=== PATIENT | male | born 1965 | race Caucasian/White ===

== ENCOUNTER 2020-05-09 08:02 | Inpatient (IN) | payer MEDICAID ==
[~2020-05-09] VITALS: Ht 177.8 cm; Wt 123.0 kg
[2020-05-09] MEDS ORDERED: furosemide 10 MG/1 ML 10ml inj IV ONE (08:55)
[2020-05-09] MEDS ORDERED: nitroGLYCERIN-Tridil 50MG/D5W 250 ML IV SCH (08:55)
[2020-05-09 09:00] LABS: BASOPHILS % (AUTO) 0.4 % (0-1); EOSINOPHILS % (AUTO) 0.1 % (0-6); HEMOGLOBIN 15.1 g/dl (14.0-17.9); LYMPHOCYTES # (AUTO) 1.4 X10'3 (1.1-4.8); LYMPHOCYTES % (AUTO) 15.1 % (21-51); MEAN CORPUSCULAR HEMOGLOBIN 31.4 PG (27.0-31.0); MEAN CORPUSCULAR HGB CONC 32.8 g/dL (33.0-36.5); MEAN CORPUSCULAR VOLUME 95.8 FL (78-98); MEAN PLATELET VOLUME 8.4 FL (7.4-10.4); MONOCYTES # (AUTO) 0.7 X10'3 (0-0.9); NEUTROPHILS # (AUTO) 7.1 X10'3 (1.8-7.7); NEUTROPHILS % (AUTO) 76.4 % (42-75); PLATELET COUNT 310 X10'3 (140-440); RED BLOOD COUNT 4.81 X10'6 (4.70-6.10); RED CELL DISTRIBUTION WIDTH 14.7 % (11.5-14.5); WHITE BLOOD COUNT 9.3 X10'3 (4.5-11.0)
[2020-05-09 09:03] LABS: D-DIMER 3.06 MG/L FEU (0-0.50); PARTIAL THROMBOPLASTIN TIME 28 SECONDS (22-32)
[2020-05-09 09:04] LABS: ALANINE AMINOTRANSFERASE 633 U/L (12-78); ALBUMIN 3.2 G/DL (3.4-5.0); ALBUMIN/GLOBULIN RATIO 0.9 (1.1-1.5); ALKALINE PHOSPHATASE 113 IU/L (46-116); ANION GAP 5 (8-16); ASPARTATE AMINO TRANSFERASE 734 U/L (10-37); BILIRUBIN,TOTAL 0.9 MG/DL (0.1-1.0); BLOOD UREA NITROGEN 51 MG/DL (7-18); CALCIUM 8.2 MG/DL (8.5-10.1); CHLORIDE 102 MMOL/L (99-107); CREATININE 2.43 MG/DL (0.60-1.10); GLUCOSE 91 MG/DL (70-104); POTASSIUM 4.7 MMOL/L (3.5-5.1); SODIUM 142 MMOL/L (135-145); TOTAL CARBON DIOXIDE 34.9 MMOL/L (24-32); TOTAL PROTEIN 6.6 G/DL (6.4-8.2); eGFR 28 ML/MIN
--- NOTE | 2020-05-09 09:37 | NUR ---
PATIENT ON NITRO 5MCG/MIN,ON 4L NC SATING 99%.CALL LIGHT WITHIN REACH.
[2020-05-09 09:45] LABS: ABG BASE EXCESS 4.3 mmol/L (-2.0-2.0); ABG HCO3 35.6 mmol/L (22.0-26.0); ABG OXYGEN SATURATION 98.1 % (94-97); ABG PCO2 (T) 86.4 mmHg (35.0-48.0); ABG PO2 (T) 139.3 mmHg (75.0-100.0); ALLEN'S TEST POSITIVE; FLOW 4 L/min; FMetHb 0.1 % (0.0-1.5); PATIENT TEMPERATURE 36.7; TOTAL HEMOGLOBIN 15.9 G/dl (14.0-18.0)
[2020-05-09 12:20] LABS: ABG BASE EXCESS 0.8 mmol/L (-2.0-2.0); ABG HCO3 30.1 mmol/L (22.0-26.0); ABG OXYGEN SATURATION 93.7 % (94-97); ABG PCO2 (T) 68.7 mmHg (35.0-48.0); ABG PO2 (T) 81.6 mmHg (75.0-100.0); ALLEN'S TEST POSITIVE; FCOHb 1.1 % (0.0-3.9); FMetHb 0.2 % (0.0-1.5); FO2Hb 92.5 % (94-97); RESPIRATORY RATE 18 b/min; TOTAL HEMOGLOBIN 15.5 G/dl (14.0-18.0)
--- NOTE | 2020-05-09 12:24 | NUR ---
SPOKE WITH SAMANTHA [phone] WHO STATES HE WAS JUST AT [facility] [place] BECAUSE THEY WERENT TREATING HIM WITH RESPECT. EXPLAINED CPAP ON PT. SHE STATES TO DO EVERYTHING WE CAN TO SAVE HIM HE IS THE LOVE OF HER LIFE.
[2020-05-09] MEDS ORDERED: heparin 10,000 units/1 ML INJ IV ONE ×2 (13:25→13:30)
[2020-05-09] MEDS ORDERED: CefTRIAXone/D5W-Rocephin 1gm 50 ML IV ONE (13:30)
[2020-05-09] MEDS ORDERED: azithromycin/NS 500mg/250ml 250 ML IV ONE (13:30)
[2020-05-09 13:52] LABS: BASOPHILS % (AUTO) 0.3 % (0-1); EOSINOPHILS % (AUTO) 0 % (0-6); HEMOGLOBIN 14.9 g/dl (14.0-17.9); LYMPHOCYTES # (AUTO) 1.5 X10'3 (1.1-4.8); LYMPHOCYTES % (AUTO) 14.7 % (21-51); MEAN CORPUSCULAR HEMOGLOBIN 31.6 PG (27.0-31.0); MEAN CORPUSCULAR HGB CONC 33.2 g/dL (33.0-36.5); MEAN CORPUSCULAR VOLUME 95.4 FL (78-98); MEAN PLATELET VOLUME 8.1 FL (7.4-10.4); MONOCYTES # (AUTO) 0.8 X10'3 (0-0.9); MONOCYTES % (AUTO) 7.8 % (2-12); NEUTROPHILS % (AUTO) 77.2 % (42-75); PLATELET COUNT 348 X10'3 (140-440); RED BLOOD COUNT 4.72 X10'6 (4.70-6.10); RED CELL DISTRIBUTION WIDTH 14.5 % (11.5-14.5); WHITE BLOOD COUNT 10.4 X10'3 (4.5-11.0)
[2020-05-09 14:02] LABS: PARTIAL THROMBOPLASTIN TIME 27 SECONDS (22-32)
[2020-05-09] MEDS: heparin 25,000 UNIT/250ml bag 250 ML IV SCH ×2 (14:05→22:44)
--- NOTE | 2020-05-09 14:09 | NUR ---
CONTINUE N BIPAP 23 RATE,NITRO 5MCG/MIN AND HEPARIN DRIP 1000 UNITS/HOUR.
--- NOTE | 2020-05-09 14:10 | NUR ---
URINE COLLECTED AND SENT TO THE LAB.
[2020-05-09] MEDS ORDERED: LORA10TA65 PO (14:31)
[2020-05-09 14:43] LABS: URINE AMPHETAMINE SCREEN POSITIVE (Neg); URINE BARBITUATE SCREEN NEGATIVE (Neg); URINE BENZODIAZEPINES SCREEN NEGATIVE (Neg); URINE CANNABINOID SCREEN NEGATIVE (Neg); URINE COCAINE SCREEN NEGATIVE (Neg); URINE METHADONE SCREEN NEGATIVE (Neg); URINE OPIATE SCREEN POSITIVE (Neg); URINE PHENCYCLIDINE SCREEN NEGATIVE (Neg)
[2020-05-09] MEDS ORDERED: normal saline 1000ml 1,000 ML IV SCH (15:14)
[2020-05-09] MEDS ORDERED: magnesium 4gm in 100ml NS 100 ML IV PRN (15:15)
[2020-05-09] MEDS ORDERED: acetaminophen 650mg rectal suppository RC PRN (15:15)
[2020-05-09] MEDS ORDERED: HYDROcodone/acetaminophen 5mg/325mg tablet PO PRN (15:15)
[2020-05-09] MEDS ORDERED: metoclopramide 5 mg/ml inj IV PRN (15:15)
[2020-05-09] MEDS ORDERED: potassium CL 10mEq/100ml bag 100 ML IV PRN ×2 (15:15)
[2020-05-09] MEDS ORDERED: morphine 2 MG/ML inj. syringe IV PRN ×2 (15:15)
[2020-05-09] MEDS ORDERED: bisacodyl 10mg suppository rectal RC PRN (15:15)
[2020-05-09] MEDS ORDERED: magnesium 2GM in 50ml NS 50 ML IV PRN (15:15)
[2020-05-09] MEDS ORDERED: furosemide 10 MG/1 ML 10ml inj IV SCH (15:15)
[2020-05-09] MEDS ORDERED: magnesium Cl slow-release 64mg tablet PO PRN (15:15)
[2020-05-09] MEDS ORDERED: magnesium hydroxide 30ml (MOM) UD suspension PO PRN (15:15)
[2020-05-09] MEDS ORDERED: mag hydrox/Alum hydrox/simeth 30ml oral suspension PO PRN (15:15)
[2020-05-09] MEDS ORDERED: HYDROcodone/acetaminophen 10/325mg tab PO PRN (15:15)
[2020-05-09] MEDS ORDERED: potassium Cl 20 mEq SR tablet PO PRN ×2 (15:15)
[2020-05-09] MEDS: methylPREDNISolone sod succ 125mg/2ml vial IV SCH ×2 (15:15→20:14)
[2020-05-09] MEDS ORDERED: acetaminophen 325mg tablet PO PRN ×2 (15:15)
[2020-05-09] MEDS ORDERED: diphenhydrAMINE 25mg capsule PO PRN (15:15)
[2020-05-09] MEDS ORDERED: ondansetron/PF 4mg/2ml inj IV PRN (15:15)
--- NOTE | 2020-05-09 15:17 | NUR ---
PT SAT UP, TOOK OF HIS CPAP , AND STATED HE WAS LEAVING. DR. GRANT CAME IN AND SPOKE WITH PT. HE WILL NOW STAY. CPAP REPLACED AND PT RESTING NOW IN POC. ABX RUNNING. COVID -.
--- NOTE | 2020-05-09 16:11 | NUR ---
ECHO AT BEDSIDE, PT VERY AGITATED RIPPING OFF HIS CPAP AND SAYING HES LEAVING. TALKED TO PT AND HE IS WILLING TO STAY.
--- NOTE | 2020-05-09 16:18 | NUR ---
[facility] CALLED, WILL DO LUNG SCAN TOMORROW
[2020-05-09 16:20] LABS: HEMOGLOBIN A1C 6.4 % (4.5-6.2)
[2020-05-09 17:37] LABS: HIV ANTIBODY 1&2 RAPID NON-REACTIVE (Neg)
--- NOTE | 2020-05-09 17:53 | NUR ---
Report received from Amber AGUILA at 1640. Patient to go to CT scan to have a CT of his head. Patient brought up by ED RN at 1745. patient was satting at 99% on 15L non rebreather. Patient's vital signs read 97.7, 128/79, 98% on 2L NC (placed by RT), 21 respirations, 80 HR. Patient at this time is alert and conversive, A/OX4, with Dr. Henderson present at bedside. Addendum: 05/09/20 at 1805 by Mercedes Baron RN Patient placed on bedside monitor 64. Nitro gtt running at 5mcg/min; Heparin gtt running at 1000 U/HR.
[2020-05-09 18:00] VITALS: BP 134/97
--- NOTE | 2020-05-09 18:15 | NUR ---
Problems reprioritized. Patient report given, questions answered & plan of care reviewed with AYLA Walters.
--- NOTE | 2020-05-09 18:20 | NUR ---
Patient in room PCU 3014. I have received report from Armando, and had the opportunity to ask questions and assume patient care.
[2020-05-09] MEDS: ipratropium/albuterol 3ml nebule NEB SCH ×2 (19:21→23:13)
[2020-05-09] MEDS: K and/or MAG REPLACEMENT MC SCH (20:00)
[2020-05-09] MEDS: furosemide inj 100 MG in normal saline 100ml IV soln 90 ML IV SCH (20:14)
[2020-05-09 22:00] VITALS: BP 132/97
[2020-05-09] MEDS: temazepam 15mg capsule PO PRN (22:03)
[2020-05-09] MEDS: heparin 10,000 units/1 ML INJ IV PRN (22:37)
[2020-05-10] MEDS: methylPREDNISolone sod succ 125mg/2ml vial IV SCH ×2 (01:28→08:31)
--- NOTE | 2020-05-10 01:39 | NUR ---
Called Dr. Velasco regarding patient having 11 beat runs of V tach. He acknowledge it and ordered for K and Mag replacement if needed. K level is 4.7. Ordered to add magnesium with the morning labs. And replace if needed. No other orders were given at this time.
[2020-05-10 02:00] VITALS: BP 129/100
--- NOTE | 2020-05-10 02:35 | NUR ---
The patient is noncompliant, took the BiPAP off. At 3 L O2 NC, O@ sat at low 90's.
[2020-05-10] MEDS: ipratropium/albuterol 3ml nebule NEB SCH ×6 (03:18→23:15)
[2020-05-10 03:31] LABS: ALANINE AMINOTRANSFERASE 675 U/L (12-78); ALBUMIN 3.2 G/DL (3.4-5.0); ALBUMIN/GLOBULIN RATIO 0.9 (1.1-1.5); ALKALINE PHOSPHATASE 117 IU/L (46-116); ANION GAP 4 (8-16); ASPARTATE AMINO TRANSFERASE 501 U/L (10-37); BILIRUBIN,TOTAL 0.6 MG/DL (0.1-1.0); BLOOD UREA NITROGEN 55 MG/DL (7-18); BUN/CREATININE RATIO 26.3 (5.4-32.0); CALCIUM 7.9 MG/DL (8.5-10.1); CHLORIDE 102 MMOL/L (99-107); CREATININE 2.09 MG/DL (0.60-1.10); GLUCOSE 164 MG/DL (70-104); SODIUM 144 MMOL/L (135-145); TOTAL CARBON DIOXIDE 38.4 MMOL/L (24-32); TOTAL PROTEIN 6.9 G/DL (6.4-8.2); eGFR 33 ML/MIN
[2020-05-10 03:32] LABS: PARTIAL THROMBOPLASTIN TIME 87 SECONDS (22-32)
[2020-05-10 03:37] LABS: CHOL/HDL RATIO 2.5 (0.00-4.99); CHOLESTEROL 137 MG/DL (0-200); HDL CHOLESTEROL 54 MG/DL (35-60); LDL CHOLESTEROL 68 MG/DL (50-100); MAGNESIUM 2.1 MG/DL (1.5-2.4); PHOSPHORUS 5.1 MG/DL (2.3-4.5); TRIGLYCERIDES 48 MG/DL (20-135)
[2020-05-10 03:52] LABS: BASOPHILS % (AUTO) 0.1 % (0-1); EOSINOPHILS % (AUTO) 0 % (0-6); HEMATOCRIT 48.1 % (42.0-52.0); HEMOGLOBIN 15.8 g/dl (14.0-17.9); LYMPHOCYTES # (AUTO) 0.6 X10'3 (1.1-4.8); LYMPHOCYTES % (AUTO) 7.8 % (21-51); MEAN CORPUSCULAR HEMOGLOBIN 31.4 PG (27.0-31.0); MEAN CORPUSCULAR HGB CONC 32.7 g/dL (33.0-36.5); MEAN CORPUSCULAR VOLUME 95.9 FL (78-98); MEAN PLATELET VOLUME 8.5 FL (7.4-10.4); MONOCYTES # (AUTO) 0.2 X10'3 (0-0.9); MONOCYTES % (AUTO) 2.2 % (2-12); NEUTROPHILS # (AUTO) 6.8 X10'3 (1.8-7.7); NEUTROPHILS % (AUTO) 89.9 % (42-75); PLATELET COUNT 347 X10'3 (140-440); RED BLOOD COUNT 5.01 X10'6 (4.70-6.10); RED CELL DISTRIBUTION WIDTH 14.6 % (11.5-14.5); WHITE BLOOD COUNT 7.5 X10'3 (4.5-11.0)
[2020-05-10] MEDS: heparin 25,000 UNIT/250ml bag 250 ML IV SCH ×2 (05:31→08:41)
[2020-05-10] MEDS: furosemide inj 100 MG in normal saline 100ml IV soln 90 ML IV SCH (05:44)
--- NOTE | 2020-05-10 06:10 | NUR ---
Patient in room PCU 3014. I have received report from Romeo AGUILA and had the opportunity to ask questions and assume patient care. Patient was resting in bed, 3L NC, offers no compliants, will continue to monitor, bedside report complete.
--- NOTE | 2020-05-10 06:28 | NUR ---
Problems reprioritized. Patient report given Bruce, questions answered & plan of care reviewed with .
[2020-05-10 07:00] VITALS: BP 145/96
[2020-05-10] MEDS: K and/or MAG REPLACEMENT MC SCH ×2 (08:00→20:00)
--- NOTE | 2020-05-10 08:16 | NUR ---
PAGER ID: [phone] MESSAGE: JarochoSaturnino. FYI: Patient has had a 10 beat run of v tach this am, pt was asymptomatic. Thanks, Sheila [phone]
[2020-05-10] MEDS: levoTHYROXINE 25mcg tablet PO SCH (08:27)
[2020-05-10] MEDS: CefTRIAXone/D5W-Rocephin 1gm 50 ML IV SCH (08:28)
[2020-05-10] MEDS: azithromycin 250mg tablet PO SCH (08:32)
[2020-05-10] MEDS: heparin 10,000 units/1 ML INJ IV PRN (08:39)
--- NOTE | 2020-05-10 09:10 | NUR ---
Patient going down to [place] for a VQ scan with RN.
--- NOTE | 2020-05-10 10:18 | NUR ---
Patient back from VQ scan, transfered back to bed by pivot, all gtts running, offers no complaints, will continue to monitor.
[2020-05-10 11:00] VITALS: BP 144/88
[2020-05-10 11:49] LABS: PARTIAL THROMBOPLASTIN TIME 41 SECONDS (22-32)
[2020-05-10 15:00] VITALS: BP 143/95
[2020-05-10] MEDS: isosorbide mononitrate 30mg tab.SR.24H PO SCH (16:33)
[2020-05-10] MEDS: furosemide 40mg/4ml inj IV SCH (16:35)
[2020-05-10 18:00] VITALS: BP 136/82
--- NOTE | 2020-05-10 18:20 | NUR ---
Problems reprioritized. Patient report given, questions answered & plan of care reviewed with Romeo AGUILA. Patient stable at transfer of care.
--- NOTE | 2020-05-10 18:21 | NUR ---
Problems reprioritized. Patient report given, questions answered & plan of care reviewed with Romeo AGUILA. Patient stable at transfer of care, potassium replacement in process notified RN.
--- NOTE | 2020-05-10 18:25 | NUR ---
Patient in room PCU 3014. I have received report from Bruce, and had the opportunity to ask questions and assume patient care.
[2020-05-10] MEDS: heparin, porcine 5000 units/ml vial SQ SCH (19:41)
[2020-05-10] MEDS: lactobacillus rhamnosus 10,000 MMU CELLS/CAPSULE PO SCH (19:41)
[2020-05-10] MEDS ORDERED: furosemide 40mg/4ml inj IV SCH (20:00)
[2020-05-10 22:00] VITALS: BP 141/96
[2020-05-10] MEDS: temazepam 15mg capsule PO PRN (22:49)
--- NOTE | 2020-05-10 23:49 | NUR ---
Patient is noncompliant with the BiPAP. Took the BiPAP off and does not want to put it back on. He is on 3L O2 NC. O2 Sat at 93. Patient is not at any distress.
[2020-05-11] MEDS: furosemide 40mg/4ml inj IV SCH ×3 (00:09→17:35)
[2020-05-11 02:00] VITALS: BP 135/116
[2020-05-11] MEDS: ipratropium/albuterol 3ml nebule NEB SCH ×6 (03:00→22:52)
[2020-05-11 05:24] LABS: BASOPHILS % (AUTO) 0.2 % (0-1); EOSINOPHILS % (AUTO) 0 % (0-6); HEMATOCRIT 44.4 % (42.0-52.0); HEMOGLOBIN 14.4 g/dl (14.0-17.9); LYMPHOCYTES # (AUTO) 0.9 X10'3 (1.1-4.8); LYMPHOCYTES % (AUTO) 6.7 % (21-51); MEAN CORPUSCULAR HEMOGLOBIN 30.9 PG (27.0-31.0); MEAN CORPUSCULAR HGB CONC 32.4 g/dL (33.0-36.5); MEAN CORPUSCULAR VOLUME 95.5 FL (78-98); MEAN PLATELET VOLUME 8.3 FL (7.4-10.4); MONOCYTES # (AUTO) 1.1 X10'3 (0-0.9); NEUTROPHILS # (AUTO) 11.3 X10'3 (1.8-7.7); NEUTROPHILS % (AUTO) 85.1 % (42-75); PLATELET COUNT 310 X10'3 (140-440); RED BLOOD COUNT 4.64 X10'6 (4.70-6.10); RED CELL DISTRIBUTION WIDTH 14.7 % (11.5-14.5); WHITE BLOOD COUNT 13.3 X10'3 (4.5-11.0)
[2020-05-11 05:28] LABS: ALANINE AMINOTRANSFERASE 486 U/L (12-78); ALBUMIN 3.1 G/DL (3.4-5.0); ALKALINE PHOSPHATASE 91 IU/L (46-116); ANION GAP 5 (8-16); ASPARTATE AMINO TRANSFERASE 218 U/L (10-37); BILIRUBIN,TOTAL 0.5 MG/DL (0.1-1.0); BLOOD UREA NITROGEN 42 MG/DL (7-18); BUN/CREATININE RATIO 27.6 (5.4-32.0); CALCIUM 7.6 MG/DL (8.5-10.1); CHLORIDE 103 MMOL/L (99-107); CREATININE 1.52 MG/DL (0.60-1.10); GLUCOSE 165 MG/DL (70-104); PHOSPHORUS 3.2 MG/DL (2.3-4.5); POTASSIUM 3.6 MMOL/L (3.5-5.1); SODIUM 146 MMOL/L (135-145); TOTAL CARBON DIOXIDE 38.4 MMOL/L (24-32); TOTAL PROTEIN 6.3 G/DL (6.4-8.2); eGFR 48 ML/MIN
--- NOTE | 2020-05-11 06:23 | NUR ---
Patient in room PCU 3014. I have received report from Romeo AGUILA and had the opportunity to ask questions and assume patient care. Patient awake and oriented, asking for breakfast at this time, offers no complaints, will continue to monitor.
[2020-05-11 07:00] VITALS: BP 153/95
[2020-05-11] MEDS: K and/or MAG REPLACEMENT MC SCH ×2 (08:00→20:00)
[2020-05-11] MEDS: levoTHYROXINE 25mcg tablet PO SCH (08:14)
[2020-05-11] MEDS: CefTRIAXone/D5W-Rocephin 1gm 50 ML IV SCH (08:18)
[2020-05-11] MEDS: lactobacillus rhamnosus 10,000 MMU CELLS/CAPSULE PO SCH ×2 (08:18→20:15)
[2020-05-11] MEDS: isosorbide mononitrate 30mg tab.SR.24H PO SCH (08:19)
[2020-05-11] MEDS: predniSONE 20 mg tablet PO SCH (08:20)
[2020-05-11] MEDS: azithromycin 250mg tablet PO SCH (08:20)
[2020-05-11] MEDS: heparin, porcine 5000 units/ml vial SQ SCH ×2 (08:26→20:16)
[2020-05-11 09:31] LABS: CLARITY,URINE CLEAR (Clear); COLOR,URINE YELLOW (Yellow); GLUCOSE, URINE NEGATIVE (Neg); KETONES,URINE NEGATIVE (Neg); LEUKOCYTE ESTERASE ,URINE NEGATIVE (Neg); NITRITES, URINE NEGATIVE (Neg); OCCULT BLOOD,URINE NEGATIVE (Neg); PH,URINE 6.5 (4.8-8.0); PROTEIN,URINE NEGATIVE (Neg); UROBILINOGEN,URINE 0.2 E.U/dL (0.2-1.0)
[2020-05-11 10:01] LABS: UA COLLECTION TYPE CLN CATCH MIDSTREAM
[2020-05-11 11:00] VITALS: BP 149/61
[2020-05-11] MEDS ORDERED: potassium Cl 20 mEq SR tablet PO STA (12:51)
[2020-05-11] MEDS ORDERED: magnesium 2GM in 50ml NS 50 ML IV ONE (12:55)
[2020-05-11 15:00] VITALS: BP 140/90
--- NOTE | 2020-05-11 15:13 | NUR ---
If O2 Sat did not drop below 89% on room air,ambulate patient on room air. O2 Sat while ambulating on room air: 86% Recovery O2 Sat while ambulating on 2 LPM: 94% No further documentation is necessary. If patient does not drop below 89% while ambulating, he/she does not qualify for home O2.
--- NOTE | 2020-05-11 18:18 | NUR ---
Problems reprioritized. Patient report given, questions answered & plan of care reviewed with Etelvina AGUILA. Patient stable at transfer of care, patient eating dinner at this time.
--- NOTE | 2020-05-11 18:39 | NUR ---
Patient in room PCU 3014. I have received report from AYLA Sosa and had the opportunity to ask questions and assume patient care.
[2020-05-11] MEDS ORDERED: potassium Cl 20 mEq SR tablet PO ONE (19:00)
[2020-05-11 19:28] VITALS: BP 130/84
[2020-05-11 21:25] VITALS: BP 146/102
[2020-05-11] MEDS: temazepam 15mg capsule PO PRN (21:32)
[2020-05-12] MEDS: furosemide 40mg/4ml inj IV SCH ×2 (00:38→08:12)
[2020-05-12 00:39] VITALS: BP 118/67
[2020-05-12 02:29] VITALS: BP 138/87
[2020-05-12] MEDS: ipratropium/albuterol 3ml nebule NEB SCH ×3 (02:51→11:04)
--- NOTE | 2020-05-12 03:35 | NUR ---
Patient is non-compliant, wants to leave AMA, and continues to pull off his mobile leads. He does not want to wear the leads anymore. I asked him if I could place them back on him and he said, " No, I'm not doing it." He also ripped out his IV. He id refusing to have another IV placed and has agreed to stay until morning.
[2020-05-12 03:51] VITALS: BP 82/40
[2020-05-12 03:52] VITALS: BP 70/40
--- NOTE | 2020-05-12 04:00 | NUR ---
Patient non compliant with fluid restriction.
--- NOTE | 2020-05-12 06:22 | NUR ---
Problems reprioritized. Patient report given, questions answered & plan of care reviewed with Shai Sosa.
[2020-05-12 06:30] VITALS: BP 145/103
[2020-05-12 06:55] LABS: BASOPHILS % (AUTO) 0.2 % (0-1); EOSINOPHILS % (AUTO) 0 % (0-6); HEMATOCRIT 44.6 % (42.0-52.0); HEMOGLOBIN 14.3 g/dl (14.0-17.9); LYMPHOCYTES # (AUTO) 1.2 X10'3 (1.1-4.8); LYMPHOCYTES % (AUTO) 10.6 % (21-51); MEAN CORPUSCULAR HEMOGLOBIN 30.5 PG (27.0-31.0); MEAN CORPUSCULAR VOLUME 95.4 FL (78-98); MEAN PLATELET VOLUME 8.2 FL (7.4-10.4); MONOCYTES # (AUTO) 1.1 X10'3 (0-0.9); MONOCYTES % (AUTO) 9.2 % (2-12); NEUTROPHILS # (AUTO) 9.5 X10'3 (1.8-7.7); PLATELET COUNT 317 X10'3 (140-440); RED BLOOD COUNT 4.67 X10'6 (4.70-6.10); RED CELL DISTRIBUTION WIDTH 14.9 % (11.5-14.5); WHITE BLOOD COUNT 11.8 X10'3 (4.5-11.0)
[2020-05-12 07:19] LABS: ALANINE AMINOTRANSFERASE 380 U/L (12-78); ALBUMIN 3.1 G/DL (3.4-5.0); ALKALINE PHOSPHATASE 85 IU/L (46-116); ANION GAP 2 (8-16); ASPARTATE AMINO TRANSFERASE 130 U/L (10-37); BILIRUBIN,TOTAL 0.5 MG/DL (0.1-1.0); BLOOD UREA NITROGEN 33 MG/DL (7-18); CALCIUM 7.2 MG/DL (8.5-10.1); CHLORIDE 102 MMOL/L (99-107); GLUCOSE 146 MG/DL (70-104); MAGNESIUM 2.3 MG/DL (1.5-2.4); PHOSPHORUS 2.7 MG/DL (2.3-4.5); POTASSIUM 3.9 MMOL/L (3.5-5.1); SODIUM 143 MMOL/L (135-145); TOTAL CARBON DIOXIDE 38.8 MMOL/L (24-32); TOTAL PROTEIN 6.3 G/DL (6.4-8.2); eGFR 48 ML/MIN
[2020-05-12] MEDS: levoTHYROXINE 25mcg tablet PO SCH (07:59)
[2020-05-12] MEDS: K and/or MAG REPLACEMENT MC SCH (08:00)
[2020-05-12] MEDS: isosorbide mononitrate 30mg tab.SR.24H PO SCH (08:00)
[2020-05-12] MEDS: lactobacillus rhamnosus 10,000 MMU CELLS/CAPSULE PO SCH (08:00)
[2020-05-12] MEDS: predniSONE 20 mg tablet PO SCH (08:01)
[2020-05-12] MEDS: azithromycin 250mg tablet PO SCH (08:02)
[2020-05-12] MEDS: CefTRIAXone/D5W-Rocephin 1gm 50 ML IV SCH (08:11)
[2020-05-12] MEDS: heparin, porcine 5000 units/ml vial SQ SCH (10:48)
--- NOTE | 2020-05-12 11:40 | NUR ---
Spoke with Peg assistant case manager regarding the patient's need for a follow up appointment to be scheduled before being discharged. Peg informed me that she would call [facility] to obtain the PCP name and then she would inform the patient as to who he would have to make an appointment with. Peg also informed me that [facility] will not allow me to schedule a follow up appointment for the patient and he will have to call on his own.
[2020-05-12 13:23] LABS: HBSAG SCREEN Negative (Negative); HEP A AB, IGM Negative (Negative); HEPATITIS C ANTIBODY <0.1 s/co ratio (0.0-0.9)
[2020-05-12] MEDS ORDERED: METO50TA7 PO (14:24)
[2020-05-12] MEDS ORDERED: ASPI-611 PO (14:24)
[2020-05-12] MEDS ORDERED: BUDE10.22 INH (14:24)
[2020-05-12] MEDS ORDERED: LEVO25TA7 PO (14:24)
[2020-05-12] MEDS ORDERED: ISOS30TA6 PO (14:24)
[2020-05-12] MEDS ORDERED: CEFD300C3 PO (14:24)
[2020-05-12] MEDS ORDERED: FURO-150 PO (14:24)
[2020-05-12] MEDS ORDERED: POTA20TA19 PO (14:24)
[2020-05-12] MEDS ORDERED: LACT1CAP26 PO (14:24)
[2020-05-12] MEDS ORDERED: ALBU8.5H8 INH (14:24)
[2020-05-12] MEDS ORDERED: PRED10TA23 PO (14:24)
[2020-05-12] MEDS ORDERED: metoprolol succinate 25mg (24-HOUR) SR. Tablet PO SCH (14:25)
--- NOTE | 2020-05-12 15:10 | NUR ---
promotional table spacer PAGER ID: [phone] MESSAGE: Chuckie JarochoSaturnino. FYI: Pt had another run of Vtach, 5 beat and then an additional 4 beat run. Will continue with discharge unless advised otherwise. Thanks! Sheila [phone]
--- NOTE | 2020-05-12 15:29 | NUR ---
PAGER ID: [phone] MESSAGE: [phone], Saturnino. Pt does not want to stay another day. He said he will sign the AMA. Medications have already been faxed to pharmacy would you like me to cancel them. Thank you, Sheila [phone]
--- NOTE | 2020-05-12 15:36 | NUR ---
Spoke with Dr. Henderson, new order obtained to cancel discharge. Patient has decided to leave AMA, form signed and in chart.
--- NOTE | 2020-05-12 15:46 | NUR ---
Patient left AMA, document signed and in chart.
--- NOTE | 2020-05-12 16:07 | NUR ---
I Called Mala Shafer, [phone](not active) using temp. to attempt to get left dentures after pt left AMA. Dentures labeled and put in lost and found and left a message on voicemail
== END 2020-05-12 15:40 | disposition left against medical advice (07) | DRG 194 ==
LOC: ER 08:03 → ED HOLD 15:14 → PCU 3S 17:26
PROVIDERS: ADMIT Family Medicine; ATTEND Family Medicine
PROC: 5A09357 Assistance with Respiratory Ventilation, Less than 24 Consecutive Hours, Continuous Positive Airway Pressure (ICD-10-PCS; principal; 2020-05-09)
PROC: 5A09357 Assistance with Respiratory Ventilation, Less than 24 Consecutive Hours, Continuous Positive Airway Pressure (ICD-10-PCS; 2020-05-10)
PROC: 5A09357 Assistance with Respiratory Ventilation, Less than 24 Consecutive Hours, Continuous Positive Airway Pressure (ICD-10-PCS; 2020-05-11)
DX: I11.0 Hypertensive heart disease with heart failure (principal); J96.01 Acute respiratory failure with hypoxia; J96.02 Acute respiratory failure with hypercapnia; Z53.29 Procedure and treatment not carried out because of patient's decision for other reasons; Z91.19 Patient's noncompliance with other medical treatment and regimen; E03.9 Hypothyroidism, unspecified; N17.9 Acute kidney failure, unspecified; F19.10 Other psychoactive substance abuse, uncomplicated; E66.2 Morbid (severe) obesity with alveolar hypoventilation; I50.43 Acute on chronic combined systolic (congestive) and diastolic (congestive) heart failure; G92 Toxic encephalopathy; F17.210 Nicotine dependence, cigarettes, uncomplicated; I27.20 Pulmonary hypertension, unspecified; I27.81 Cor pulmonale (chronic); Z20.828 Contact with and (suspected) exposure to other viral communicable diseases; R74.0 Nonspecific elevation of levels of transaminase and lactic acid dehydrogenase [LDH]
CPT/HCPCS: 36415; 36600; 70450; 71045; 78582; 80053; 80061; 80305; 81003; 82140; 82803; 83036; 83605; 83735; 83880; 84100; 84145; 84439; 84443; 84484; 85018; 85025; 85379; 85610; 85730; 86703; 86705; 86706; 86709; 86803; 87040; 87070; 87081; 87340; 87635; 92508; 92616; 93005; 93306; 94640; 94660; 94668; 94760; 96365; 96367; 96375; 97116; 97161; 97530; 99291; A9539; A9540; G0378; J0456; J0696; J1644; J1940; J2930; J3475; J3490; J7030; J7512

== ENCOUNTER 2020-05-15 15:53 | Emergency (ER) | payer MEDICAID ==
[~2020-05-15] VITALS: Ht 177.8 cm; Wt 128.0 kg
[~2020-05-15 15:53] MED LIST: ALBU8.5H8 INH; ASPI-611 PO; BUDE10.22 INH; CEFD300C3 PO; FURO-150 PO; ISOS30TA6 PO; LACT1CAP26 PO; LEVO25TA7 PO; METO50TA7 PO; POTA20TA19 PO; PRED10TA23 PO
[2020-05-15 16:43] LABS: BASOPHILS % (AUTO) 0.6 % (0-1); EOSINOPHILS # (AUTO) 0.1 X10'3 (0-0.9); EOSINOPHILS % (AUTO) 1.8 % (0-6); HEMATOCRIT 42.5 % (42.0-52.0); HEMOGLOBIN 13.8 g/dl (14.0-17.9); LYMPHOCYTES # (AUTO) 1.8 X10'3 (1.1-4.8); LYMPHOCYTES % (AUTO) 22.6 % (21-51); MEAN CORPUSCULAR HEMOGLOBIN 31.1 PG (27.0-31.0); MEAN CORPUSCULAR HGB CONC 32.6 g/dL (33.0-36.5); MEAN CORPUSCULAR VOLUME 95.6 FL (78-98); MONOCYTES # (AUTO) 0.8 X10'3 (0-0.9); MONOCYTES % (AUTO) 10.5 % (2-12); NEUTROPHILS # (AUTO) 5.2 X10'3 (1.8-7.7); NEUTROPHILS % (AUTO) 64.5 % (42-75); PLATELET COUNT 253 X10'3 (140-440); RED BLOOD COUNT 4.44 X10'6 (4.70-6.10); WHITE BLOOD COUNT 8.1 X10'3 (4.5-11.0)
[2020-05-15 16:55] LABS: ALANINE AMINOTRANSFERASE 175 U/L (12-78); ALBUMIN 3.1 G/DL (3.4-5.0); ALKALINE PHOSPHATASE 78 IU/L (46-116); ANION GAP 3 (8-16); ASPARTATE AMINO TRANSFERASE 43 U/L (10-37); BILIRUBIN,TOTAL 0.5 MG/DL (0.1-1.0); BLOOD UREA NITROGEN 28 MG/DL (7-18); BUN/CREATININE RATIO 18.3 (5.4-32.0); CALCIUM 8.6 MG/DL (8.5-10.1); CHLORIDE 105 MMOL/L (99-107); CREATININE 1.53 MG/DL (0.60-1.10); GLUCOSE 111 MG/DL (70-104); POTASSIUM 4.4 MMOL/L (3.5-5.1); SODIUM 144 MMOL/L (135-145); TOTAL CARBON DIOXIDE 36.2 MMOL/L (24-32); TOTAL PROTEIN 6.3 G/DL (6.4-8.2); eGFR 47 ML/MIN
[2020-05-15] MEDS ORDERED: BUDE10.22 INH (18:15)
[2020-05-15] MEDS ORDERED: LACT1CAP26 PO (18:15)
[2020-05-15] MEDS ORDERED: ALBU8.5H8 INH (18:15)
[2020-05-15] MEDS ORDERED: METO50TA7 PO (18:15)
[2020-05-15] MEDS ORDERED: CEFD300C21 PO (18:15)
[2020-05-15] MEDS ORDERED: ASPI-611 PO (18:15)
[2020-05-15] MEDS ORDERED: ISOS30TA6 PO (18:15)
[2020-05-15] MEDS ORDERED: FURO-150 PO ×2 (18:15→19:17)
[2020-05-15] MEDS ORDERED: PRED10TA23 PO (18:15)
[2020-05-15] MEDS ORDERED: POTA20TA19 PO (18:15)
[2020-05-15] MEDS ORDERED: LEVO25TA7 PO (18:15)
[2020-05-15] MEDS ORDERED: LISI-600 PO (19:17)
[2020-05-15] MEDS ORDERED: PRED20TA PO (19:17)
[2020-05-15 19:32] VITALS: BP 118/74
== END 2020-05-15 19:30 | disposition home or self-care (01) ==
LOC: ER 15:54
DX: I50.9 Heart failure, unspecified (principal); J44.9 Chronic obstructive pulmonary disease, unspecified; M79.89 Other specified soft tissue disorders; Z91.030 Bee allergy status; Z79.82 Long term (current) use of aspirin; Z79.2 Long term (current) use of antibiotics; Z79.899 Other long term (current) drug therapy
CPT/HCPCS: 36415; 71045; 80053; 83880; 84484; 85025; 93005; 99285

== ENCOUNTER 2020-09-01 15:00 | Inpatient (IN) | payer MEDICAID ==
[~2020-09-01] VITALS: Ht 177.8 cm; Wt 132.3 kg
[~2020-09-01 15:00] MED LIST changes: +CEFD300C21 PO; -CEFD300C3 PO
[2020-09-01 16:17] LABS: BASOPHILS % (AUTO) 0.4 % (0-1); EOSINOPHILS % (AUTO) 0.1 % (0-6); HEMATOCRIT 44.3 % (42.0-52.0); HEMOGLOBIN 14.5 g/dl (14.0-17.9); LYMPHOCYTES # (AUTO) 1.2 X10'3 (1.1-4.8); LYMPHOCYTES % (AUTO) 14.3 % (21-51); MEAN CORPUSCULAR HEMOGLOBIN 31.2 PG (27.0-31.0); MEAN CORPUSCULAR HGB CONC 32.7 g/dL (33.0-36.5); MEAN CORPUSCULAR VOLUME 95.6 FL (78-98); MEAN PLATELET VOLUME 7.7 FL (7.4-10.4); MONOCYTES # (AUTO) 0.8 X10'3 (0-0.9); MONOCYTES % (AUTO) 9.3 % (2-12); NEUTROPHILS # (AUTO) 6.4 X10'3 (1.8-7.7); NEUTROPHILS % (AUTO) 75.9 % (42-75); PLATELET COUNT 349 X10'3 (140-440); RED BLOOD COUNT 4.63 X10'6 (4.70-6.10); RED CELL DISTRIBUTION WIDTH 15.1 % (11.5-14.5); WHITE BLOOD COUNT 8.4 X10'3 (4.5-11.0)
[2020-09-01 16:25] LABS: ALANINE AMINOTRANSFERASE 55 U/L (12-78); ALBUMIN 3.7 G/DL (3.4-5.0); ALBUMIN/GLOBULIN RATIO 0.9 (1.1-1.5); ALKALINE PHOSPHATASE 149 IU/L (46-116); ANION GAP 3 (8-16); ASPARTATE AMINO TRANSFERASE 64 U/L (10-37); BILIRUBIN,TOTAL 0.6 MG/DL (0.1-1.0); BLOOD UREA NITROGEN 35 MG/DL (7-18); CALCIUM 8.7 MG/DL (8.5-10.1); CHLORIDE 101 MMOL/L (99-107); CREATININE 1.84 MG/DL (0.60-1.10); GLUCOSE 150 MG/DL (70-104); POTASSIUM 4.1 MMOL/L (3.5-5.1); SODIUM 143 MMOL/L (135-145); TOTAL CARBON DIOXIDE 39.4 MMOL/L (24-32); TOTAL PROTEIN 7.7 G/DL (6.4-8.2); eGFR 38 ML/MIN
[2020-09-01] MEDS ORDERED: furosemide 10 MG/1 ML 10ml inj IV ONE (17:55)
[2020-09-01] MEDS ORDERED: nitroGLYCERIN 1gm ointment UD TP ONE (17:55)
[2020-09-01] MEDS ORDERED: iohexol 350MG/ML 100ml bottle IV ONE (18:02)
[2020-09-01 18:25] LABS: C-REACTIVE PROTEIN 1.78 MG/DL (0.0-0.5)
[2020-09-01 19:18] LABS: D-DIMER 2.62 MG/L FEU (0-0.50)
[2020-09-01 19:36] LABS: ABG BASE EXCESS 8.9 mmol/L (-2.0-2.0); ABG HCO3 39.8 mmol/L (22.0-26.0); ABG PCO2 (T) 87.9 mmHg (35.0-48.0); ABG PO2 (T) 107.9 mmHg (75.0-100.0); ALLEN'S TEST POSITIVE; FCOHb 1.3 % (0.0-3.9); FLOW 4 L/min; FMetHb 0.3 % (0.0-1.5); FO2Hb 95.4 % (94-97); PATIENT TEMPERATURE 37.3; TOTAL HEMOGLOBIN 15.6 G/dl (14.0-18.0)
--- NOTE | 2020-09-01 20:13 | NUR ---
Pt placed on bipap by respiratory, tolerating it well.
[2020-09-01 21:26] LABS: ABG BASE EXCESS 10.3 mmol/L (-2.0-2.0); ABG OXYGEN SATURATION 92.9 % (94-97); ABG PCO2 (T) 78.8 mmHg (35.0-48.0); ABG PO2 (T) 75.2 mmHg (75.0-100.0); ALLEN'S TEST POSITIVE; FCOHb 1.2 % (0.0-3.9); FMetHb 0.2 % (0.0-1.5); FO2Hb 91.6 % (94-97); PATIENT TEMPERATURE 37.2; RESPIRATORY RATE 22 b/min; TOTAL HEMOGLOBIN 15.1 G/dl (14.0-18.0)
[2020-09-01 22:53] LABS: CLARITY,URINE CLEAR (Clear); COLOR,URINE YELLOW (Yellow); GLUCOSE, URINE NEGATIVE (Neg); KETONES,URINE NEGATIVE (Neg); LEUKOCYTE ESTERASE ,URINE NEGATIVE (Neg); NITRITES, URINE NEGATIVE (Neg); OCCULT BLOOD,URINE NEGATIVE (Neg); PROTEIN,URINE NEGATIVE (Neg); UROBILINOGEN,URINE 0.2 E.U/dL (0.2-1.0)
[2020-09-01 22:54] LABS: UA COLLECTION TYPE CLN CATCH MIDSTREAM
[2020-09-01 23:07] LABS: URINE AMPHETAMINE SCREEN POSITIVE (Neg); URINE BARBITUATE SCREEN NEGATIVE (Neg); URINE BENZODIAZEPINES SCREEN NEGATIVE (Neg); URINE CANNABINOID SCREEN NEGATIVE (Neg); URINE COCAINE SCREEN NEGATIVE (Neg); URINE METHADONE SCREEN NEGATIVE (Neg); URINE OPIATE SCREEN NEGATIVE (Neg); URINE PHENCYCLIDINE SCREEN NEGATIVE (Neg)
[2020-09-02] VITALS (8 sets, daily range): BP systolic 115–150; BP diastolic 74–118
[2020-09-02] MEDS ORDERED: potassium CL 10mEq/100ml bag 100 ML IV PRN ×2 (00:25)
[2020-09-02] MEDS ORDERED: magnesium hydroxide 30ml (MOM) UD suspension PO PRN (00:25)
[2020-09-02] MEDS ORDERED: acetaminophen 325mg tablet PO PRN ×2 (00:25)
[2020-09-02] MEDS ORDERED: bisacodyl 10mg suppository rectal RC PRN (00:25)
[2020-09-02] MEDS ORDERED: HYDROcodone/acetaminophen 10/325mg tab PO PRN (00:25)
[2020-09-02] MEDS ORDERED: magnesium 2GM in 50ml NS 50 ML IV PRN (00:25)
[2020-09-02] MEDS ORDERED: potassium Cl 20 mEq SR tablet PO PRN (00:25)
[2020-09-02] MEDS ORDERED: ipratropium/albuterol 3ml nebule NEB PRN (00:25)
[2020-09-02] MEDS ORDERED: magnesium Cl slow-release 64mg tablet PO PRN (00:25)
[2020-09-02] MEDS ORDERED: HYDROmorphone inj. 0.5 MG/0.5 ML DISP.SYRIN IV PRN (00:25)
[2020-09-02] MEDS ORDERED: HYDROcodone/acetaminophen 5mg/325mg tablet PO PRN (00:25)
[2020-09-02] MEDS ORDERED: mag hydrox/Alum hydrox/simeth 30ml oral suspension PO PRN (00:25)
[2020-09-02] MEDS ORDERED: ondansetron/PF 4mg/2ml inj IV PRN (00:25)
[2020-09-02] MEDS ORDERED: magnesium 4gm in 100ml NS 100 ML IV PRN (00:25)
[2020-09-02] MEDS ORDERED: metoclopramide 5 mg/ml inj IV PRN (00:25)
[2020-09-02] MEDS: methylPREDNISolone sod succ 125mg/2ml vial IV SCH ×4 (02:58→20:31)
--- NOTE | 2020-09-02 06:25 | NUR ---
Patient in room PCU 3016. I have received report from AYLA Tucker and had the opportunity to ask questions and assume patient care.
--- NOTE | 2020-09-02 06:32 | NUR ---
Problems reprioritized. Patient report given, questions answered & plan of care reviewed with Thania AGUILA.
--- NOTE | 2020-09-02 06:52 | NUR ---
Problems reprioritized. Patient report given, questions answered & plan of care reviewed. Safety measures in place, bed in low and locked position. Call light and personal items within reach. will continue to monitor for remainder of shift.
[2020-09-02] MEDS: ipratropium/albuterol 3ml nebule NEB SCH ×4 (07:16→20:12)
[2020-09-02] MEDS: furosemide 10 MG/1 ML 10ml inj IV SCH ×2 (07:38→20:31)
[2020-09-02] MEDS: K and/or MAG REPLACEMENT MC SCH ×2 (08:00→20:00)
--- NOTE | 2020-09-02 08:18 | NUR ---
PAGER ID: [phone] MESSAGE: [phone] Anton Matamoros order to send body fluid, do you want this from the para or thora? Feli AGUILA [id number]
[2020-09-02 09:18] LABS: BASOPHILS % (AUTO) 0.2 % (0-1); EOSINOPHILS % (AUTO) 0 % (0-6); HEMATOCRIT 44.1 % (42.0-52.0); HEMOGLOBIN 14.7 g/dl (14.0-17.9); LYMPHOCYTES # (AUTO) 0.5 X10'3 (1.1-4.8); LYMPHOCYTES % (AUTO) 6.4 % (21-51); MEAN CORPUSCULAR HEMOGLOBIN 31.8 PG (27.0-31.0); MEAN CORPUSCULAR HGB CONC 33.3 g/dL (33.0-36.5); MEAN CORPUSCULAR VOLUME 95.6 FL (78-98); MEAN PLATELET VOLUME 7.8 FL (7.4-10.4); MONOCYTES # (AUTO) 0.1 X10'3 (0-0.9); MONOCYTES % (AUTO) 1.5 % (2-12); NEUTROPHILS % (AUTO) 91.9 % (42-75); PLATELET COUNT 332 X10'3 (140-440); RED BLOOD COUNT 4.62 X10'6 (4.70-6.10); RED CELL DISTRIBUTION WIDTH 14.7 % (11.5-14.5); WHITE BLOOD COUNT 7.6 X10'3 (4.5-11.0)
[2020-09-02 09:37] LABS: ALANINE AMINOTRANSFERASE 52 U/L (12-78); ALBUMIN 3.5 G/DL (3.4-5.0); ALBUMIN/GLOBULIN RATIO 0.9 (1.1-1.5); ALKALINE PHOSPHATASE 145 IU/L (46-116); ANION GAP 5 (8-16); ASPARTATE AMINO TRANSFERASE 57 U/L (10-37); BILIRUBIN,TOTAL 0.8 MG/DL (0.1-1.0); BLOOD UREA NITROGEN 34 MG/DL (7-18); BUN/CREATININE RATIO 19.8 (5.4-32.0); CALCIUM 8.6 MG/DL (8.5-10.1); CHLORIDE 101 MMOL/L (99-107); CREATININE 1.72 MG/DL (0.60-1.10); GLUCOSE 135 MG/DL (70-104); POTASSIUM 3.9 MMOL/L (3.5-5.1); SODIUM 143 MMOL/L (135-145); TOTAL CARBON DIOXIDE 37.1 MMOL/L (24-32); TOTAL PROTEIN 7.4 G/DL (6.4-8.2); eGFR 41 ML/MIN
[2020-09-02] MEDS ORDERED: FURO20TA4 PO (10:12)
[2020-09-02] MEDS ORDERED: FURO40TA4 PO (10:12)
[2020-09-02] MEDS ORDERED: CARV6.256 PO (10:13)
--- NOTE | 2020-09-02 12:54 | NUR ---
PAGER ID: [phone] MESSAGE: [phone] Anton Matamoros had a 12 beat run of V-tach. Asymptomatic. Feli AGUILA 1950
--- NOTE | 2020-09-02 18:42 | NUR ---
Problems reprioritized. Patient report given, questions answered & plan of care reviewed with Nany AGUILA.
[2020-09-02] MEDS: carvedilol 6.25mg tablet PO SCH (20:25)
[2020-09-02] MEDS ORDERED: temazepam 15mg capsule PO PRN (21:00)
[2020-09-03] VITALS (9 sets, daily range): BP systolic 106–152; BP diastolic 81–92
[2020-09-03] MEDS: ipratropium/albuterol 3ml nebule NEB SCH ×7 (00:03→23:31)
[2020-09-03] MEDS: methylPREDNISolone sod succ 125mg/2ml vial IV SCH ×2 (02:19→09:40)
--- NOTE | 2020-09-03 06:44 | NUR ---
Problems reprioritized. Patient report given, questions answered & plan of care reviewed with Mariposa AGUILA.
--- NOTE | 2020-09-03 06:46 | NUR ---
Patient in room PCU 3016. I have received report from AYLA Ayon and had the opportunity to ask questions and assume patient care. Pt resting comfortably at change of shift.
[2020-09-03 06:50] LABS: BASOPHILS % (AUTO) 0.2 % (0-1); EOSINOPHILS % (AUTO) 0 % (0-6); HEMATOCRIT 46.1 % (42.0-52.0); HEMOGLOBIN 14.9 g/dl (14.0-17.9); LYMPHOCYTES # (AUTO) 0.6 X10'3 (1.1-4.8); LYMPHOCYTES % (AUTO) 5.3 % (21-51); MEAN CORPUSCULAR HEMOGLOBIN 30.7 PG (27.0-31.0); MEAN CORPUSCULAR HGB CONC 32.3 g/dL (33.0-36.5); MEAN CORPUSCULAR VOLUME 94.9 FL (78-98); MEAN PLATELET VOLUME 7.9 FL (7.4-10.4); MONOCYTES # (AUTO) 0.4 X10'3 (0-0.9); MONOCYTES % (AUTO) 3.2 % (2-12); NEUTROPHILS # (AUTO) 10.5 X10'3 (1.8-7.7); NEUTROPHILS % (AUTO) 91.3 % (42-75); PLATELET COUNT 332 X10'3 (140-440); RED BLOOD COUNT 4.86 X10'6 (4.70-6.10); RED CELL DISTRIBUTION WIDTH 14.8 % (11.5-14.5); WHITE BLOOD COUNT 11.5 X10'3 (4.5-11.0)
[2020-09-03 07:11] LABS: ALANINE AMINOTRANSFERASE 44 U/L (12-78); ALBUMIN 3.2 G/DL (3.4-5.0); ALBUMIN/GLOBULIN RATIO 0.8 (1.1-1.5); ALKALINE PHOSPHATASE 132 IU/L (46-116); ANION GAP 5 (8-16); ASPARTATE AMINO TRANSFERASE 38 U/L (10-37); BILIRUBIN,TOTAL 0.7 MG/DL (0.1-1.0); BLOOD UREA NITROGEN 41 MG/DL (7-18); BUN/CREATININE RATIO 25.8 (5.4-32.0); CALCIUM 8.7 MG/DL (8.5-10.1); CHLORIDE 101 MMOL/L (99-107); CHOL/HDL RATIO 2.4 (0.00-4.99); CHOLESTEROL 130 MG/DL (0-200); CREATININE 1.59 MG/DL (0.60-1.10); GLUCOSE 136 MG/DL (70-104); HDL CHOLESTEROL 54 MG/DL (35-60); LDL CHOLESTEROL 71 MG/DL (50-100); MAGNESIUM 2.4 MG/DL (1.5-2.4); SODIUM 143 MMOL/L (135-145); TOTAL CARBON DIOXIDE 36.8 MMOL/L (24-32); TOTAL PROTEIN 7.1 G/DL (6.4-8.2); TRIGLYCERIDES 43 MG/DL (20-135); eGFR 45 ML/MIN
[2020-09-03] MEDS: K and/or MAG REPLACEMENT MC SCH ×2 (08:00→20:00)
[2020-09-03] MEDS: furosemide 10 MG/1 ML 10ml inj IV SCH ×2 (09:40→19:16)
[2020-09-03] MEDS: aspirin 81mg tablet.DR PO SCH (09:40)
[2020-09-03] MEDS: carvedilol 6.25mg tablet PO SCH ×2 (09:40→19:15)
--- NOTE | 2020-09-03 12:38 | NUR ---
I have reviewed and agree with all medications administered and interventions performed by DIRECTOR OF ENTERPRISE STRATEGY Student(TARA HASKINS
[2020-09-03] MEDS: methylPREDNISolone sod succ/PF 40mg inj. IV SCH ×2 (15:16→19:17)
[2020-09-04 02:00] VITALS: BP 134/93
--- NOTE | 2020-09-04 03:54 | NUR ---
Paged Dr. Crane. PAGER ID: [phone] MESSAGE: This is AYLA Acevedo from [facility]. Pt Anton Matamoros 55 M. Dx Acute Resp Failure, CHF, Encephalopathy had 5 run of Vtach, but not sustaining. K+ 4.0 and Mg 2.4. ext. [id number].
[2020-09-04] MEDS: ipratropium/albuterol 3ml nebule NEB SCH ×6 (03:55→23:38)
--- NOTE | 2020-09-04 03:55 | NUR ---
Dr. Crane called back about the pt's 5 run of Vtach. No order received.
[2020-09-04 06:05] LABS: BASOPHILS % (AUTO) 0.2 % (0-1); EOSINOPHILS % (AUTO) 0 % (0-6); HEMOGLOBIN 15.2 g/dl (14.0-17.9); LYMPHOCYTES # (AUTO) 0.7 X10'3 (1.1-4.8); LYMPHOCYTES % (AUTO) 5.1 % (21-51); MEAN CORPUSCULAR HEMOGLOBIN 30.5 PG (27.0-31.0); MEAN CORPUSCULAR HGB CONC 32.3 g/dL (33.0-36.5); MEAN CORPUSCULAR VOLUME 94.4 FL (78-98); MEAN PLATELET VOLUME 7.8 FL (7.4-10.4); MONOCYTES # (AUTO) 0.9 X10'3 (0-0.9); MONOCYTES % (AUTO) 6.3 % (2-12); NEUTROPHILS # (AUTO) 12.9 X10'3 (1.8-7.7); NEUTROPHILS % (AUTO) 88.4 % (42-75); PLATELET COUNT 364 X10'3 (140-440); RED BLOOD COUNT 4.97 X10'6 (4.70-6.10); RED CELL DISTRIBUTION WIDTH 14.8 % (11.5-14.5); WHITE BLOOD COUNT 14.6 X10'3 (4.5-11.0)
--- NOTE | 2020-09-04 06:15 | NUR ---
Patient in room PCU 3016. I have received report from AYLA Corbett and had the opportunity to ask questions and assume patient care. Patient asleep in bed and in no acute distress.
[2020-09-04 06:17] LABS: ALANINE AMINOTRANSFERASE 46 U/L (12-78); ALBUMIN 3.2 G/DL (3.4-5.0); ALBUMIN/GLOBULIN RATIO 0.8 (1.1-1.5); ALKALINE PHOSPHATASE 128 IU/L (46-116); ANION GAP 2 (8-16); ASPARTATE AMINO TRANSFERASE 35 U/L (10-37); BILIRUBIN,TOTAL 0.7 MG/DL (0.1-1.0); BLOOD UREA NITROGEN 47 MG/DL (7-18); BUN/CREATININE RATIO 26.6 (5.4-32.0); CALCIUM 8.8 MG/DL (8.5-10.1); CHLORIDE 102 MMOL/L (99-107); CREATININE 1.77 MG/DL (0.60-1.10); GLUCOSE 141 MG/DL (70-104); MAGNESIUM 2.5 MG/DL (1.5-2.4); POTASSIUM 3.3 MMOL/L (3.5-5.1); SODIUM 144 MMOL/L (135-145); eGFR 40 ML/MIN
[2020-09-04 06:20] LABS: TOTAL CARBON DIOXIDE 40.1 MMOL/L (24-32)
--- NOTE | 2020-09-04 06:20 | NUR ---
Problems reprioritized. Patient report given, questions answered & plan of care reviewed with AYLA Victoria.
--- NOTE | 2020-09-04 06:24 | NUR ---
Paged Dr. Crane regarding critical results of CO2 of 40.1 PAGER ID: [phone] MESSAGE: [id number]. Anton Matamoros. Critical results of CO2 40.1. Thank you. Esme AGUILA x [phone] Addendum: 09/04/20 at 0627 by Esme Montoya RN Dr. Crane called back. No new orders received.
[2020-09-04 07:00] VITALS: BP 133/86
[2020-09-04] MEDS: methylPREDNISolone sod succ/PF 40mg inj. IV SCH ×2 (08:26→19:24)
[2020-09-04] MEDS: aspirin 81mg tablet.DR PO SCH (08:26)
[2020-09-04] MEDS: furosemide 10 MG/1 ML 10ml inj IV SCH ×2 (08:26→19:24)
[2020-09-04] MEDS: potassium Cl 20 mEq SR tablet PO PRN ×3 (08:27→23:31)
[2020-09-04] MEDS: carvedilol 6.25mg tablet PO SCH ×2 (08:27→19:23)
[2020-09-04] MEDS: K and/or MAG REPLACEMENT MC SCH ×2 (08:28→19:25)
--- NOTE | 2020-09-04 09:46 | NUR ---
Paged Dr. Garcia regarding patient's 9 beat run of Vtach. PAGER ID: [phone] MESSAGE: [phone]. Anton Matamoros. Patient had a 9 beat run of Vtach. Thank you. Esme AGUILA x [phone]
[2020-09-04 11:00] VITALS: BP 106/81
[2020-09-04 15:00] VITALS: BP 106/80
[2020-09-04 18:00] VITALS: BP 114/84
--- NOTE | 2020-09-04 18:08 | NUR ---
Problems reprioritized. Patient report given, questions answered & plan of care reviewed with AYLA Corbett. Patient stable at transfer of care.
[2020-09-04 22:00] VITALS: BP 120/77
[2020-09-05 02:00] VITALS: BP 101/67
[2020-09-05] MEDS: ipratropium/albuterol 3ml nebule NEB SCH ×6 (04:00→22:48)
--- NOTE | 2020-09-05 06:29 | NUR ---
Problems reprioritized. Patient report given, questions answered & plan of care reviewed with Mariposa Orozco RN.
[2020-09-05 06:33] LABS: BASOPHILS % (AUTO) 0.1 % (0-1); EOSINOPHILS % (AUTO) 0.1 % (0-6); HEMATOCRIT 46.4 % (42.0-52.0); HEMOGLOBIN 15.4 g/dl (14.0-17.9); LYMPHOCYTES # (AUTO) 1.7 X10'3 (1.1-4.8); LYMPHOCYTES % (AUTO) 13.9 % (21-51); MEAN CORPUSCULAR HEMOGLOBIN 31.4 PG (27.0-31.0); MEAN CORPUSCULAR HGB CONC 33.1 g/dL (33.0-36.5); MEAN CORPUSCULAR VOLUME 94.7 FL (78-98); MEAN PLATELET VOLUME 7.9 FL (7.4-10.4); MONOCYTES # (AUTO) 1.1 X10'3 (0-0.9); MONOCYTES % (AUTO) 8.9 % (2-12); NEUTROPHILS # (AUTO) 9.3 X10'3 (1.8-7.7); PLATELET COUNT 310 X10'3 (140-440); RED BLOOD COUNT 4.89 X10'6 (4.70-6.10); RED CELL DISTRIBUTION WIDTH 14.9 % (11.5-14.5); WHITE BLOOD COUNT 12.1 X10'3 (4.5-11.0)
[2020-09-05 06:35] LABS: ALANINE AMINOTRANSFERASE 50 U/L (12-78); ALBUMIN 2.8 G/DL (3.4-5.0); ALBUMIN/GLOBULIN RATIO 0.8 (1.1-1.5); ALKALINE PHOSPHATASE 110 IU/L (46-116); ANION GAP 4 (8-16); ASPARTATE AMINO TRANSFERASE 45 U/L (10-37); BILIRUBIN,TOTAL 0.8 MG/DL (0.1-1.0); BLOOD UREA NITROGEN 49 MG/DL (7-18); BUN/CREATININE RATIO 32.9 (5.4-32.0); CALCIUM 8.1 MG/DL (8.5-10.1); CHLORIDE 103 MMOL/L (99-107); CREATININE 1.49 MG/DL (0.60-1.10); GLUCOSE 112 MG/DL (70-104); MAGNESIUM 2.4 MG/DL (1.5-2.4); POTASSIUM 3.7 MMOL/L (3.5-5.1); SODIUM 144 MMOL/L (135-145); TOTAL CARBON DIOXIDE 37.2 MMOL/L (24-32); TOTAL PROTEIN 6.1 G/DL (6.4-8.2); eGFR 49 ML/MIN
--- NOTE | 2020-09-05 06:43 | NUR ---
Patient in room PCU 3016. I have received report from Janessa AGUILA and had the opportunity to ask questions and assume patient care.
[2020-09-05 07:00] VITALS: BP 117/92
[2020-09-05] MEDS: K and/or MAG REPLACEMENT MC SCH ×2 (08:00→20:00)
[2020-09-05] MEDS: furosemide 10 MG/1 ML 10ml inj IV SCH ×2 (08:57→22:05)
[2020-09-05] MEDS: aspirin 81mg tablet.DR PO SCH (08:57)
[2020-09-05] MEDS: methylPREDNISolone sod succ/PF 40mg inj. IV SCH ×2 (08:57→22:06)
[2020-09-05] MEDS: carvedilol 6.25mg tablet PO SCH ×2 (08:57→22:06)
[2020-09-05 11:00] VITALS: BP 117/92
[2020-09-05 15:00] VITALS: BP 110/90
[2020-09-05 18:00] VITALS: BP 123/81
--- NOTE | 2020-09-05 18:11 | NUR ---
Problems reprioritized. Patient report given, questions answered & plan of care reviewed with Garrett AGUILA.
--- NOTE | 2020-09-05 18:30 | NUR ---
Patient in room PCU 3016. I have received report from AYLA Monge and had the opportunity to ask questions and assume patient care. Patient awake, in bed, no signs of distress. Safety measures in place, bed in low and locked position. Call light and personal items within reach. Will continue to monitor throughout shift.
[2020-09-05 22:00] VITALS: BP 120/84
--- NOTE | 2020-09-06 00:51 | NUR ---
Problems reprioritized. Patient report given, questions answered & plan of care reviewed with AYLA Jay. VSS. Care plan followed. Medications administered as ordered. No signs of distress. Safety measures in place, bed in low and locked position. Personal items and call light within reach. Will continue to monitor for remainder shift. .
--- NOTE | 2020-09-06 01:33 | NUR ---
Patient in room U 3016. I have received report from LOLA KOTHARI RN and had the opportunity to ask questions and assume patient care. Addendum: 09/06/20 at 0317 by Sumeet Dunn RN REVIEWED LOLA KOTHARI RN CHARTING AND AGREE WITH ALL PREVIOUS CHARTING.
[2020-09-06] MEDS: ipratropium/albuterol 3ml nebule NEB SCH ×6 (03:00→23:00)
--- NOTE | 2020-09-06 03:14 | NUR ---
Problems reprioritized. Patient report given, questions answered & plan of care reviewed with LINDA AGUILA.
--- NOTE | 2020-09-06 03:16 | NUR ---
Patient in room PCU 3016. I have received report from Pierre AGUILA and had the opportunity to ask questions and assume patient care.
[2020-09-06 06:09] LABS: BASOPHILS % (AUTO) 0.2 % (0-1); EOSINOPHILS % (AUTO) 0 % (0-6); HEMATOCRIT 47.7 % (42.0-52.0); HEMOGLOBIN 15.8 g/dl (14.0-17.9); LYMPHOCYTES # (AUTO) 0.8 X10'3 (1.1-4.8); LYMPHOCYTES % (AUTO) 8.9 % (21-51); MEAN CORPUSCULAR HEMOGLOBIN 31.4 PG (27.0-31.0); MEAN CORPUSCULAR HGB CONC 33.1 g/dL (33.0-36.5); MEAN PLATELET VOLUME 8.1 FL (7.4-10.4); MONOCYTES # (AUTO) 0.4 X10'3 (0-0.9); MONOCYTES % (AUTO) 4.9 % (2-12); NEUTROPHILS # (AUTO) 7.7 X10'3 (1.8-7.7); PLATELET COUNT 273 X10'3 (140-440); RED BLOOD COUNT 5.02 X10'6 (4.70-6.10); RED CELL DISTRIBUTION WIDTH 14.7 % (11.5-14.5)
--- NOTE | 2020-09-06 06:10 | NUR ---
Problems reprioritized. Patient report given, questions answered & plan of care reviewed with Ngoc AGUILA.
[2020-09-06 06:13] LABS: ALANINE AMINOTRANSFERASE 60 U/L (12-78); ALBUMIN 2.9 G/DL (3.4-5.0); ALBUMIN/GLOBULIN RATIO 0.9 (1.1-1.5); ALKALINE PHOSPHATASE 111 IU/L (46-116); ANION GAP 2 (8-16); ASPARTATE AMINO TRANSFERASE 55 U/L (10-37); BILIRUBIN,TOTAL 0.9 MG/DL (0.1-1.0); BLOOD UREA NITROGEN 46 MG/DL (7-18); BUN/CREATININE RATIO 32.9 (5.4-32.0); CALCIUM 8.1 MG/DL (8.5-10.1); CHLORIDE 102 MMOL/L (99-107); GLUCOSE 126 MG/DL (70-104); MAGNESIUM 2.4 MG/DL (1.5-2.4); SODIUM 143 MMOL/L (135-145); TOTAL CARBON DIOXIDE 39.4 MMOL/L (24-32); TOTAL PROTEIN 6.3 G/DL (6.4-8.2); eGFR 52 ML/MIN
--- NOTE | 2020-09-06 06:13 | NUR ---
Patient in room PCU 3016. I have received report from Dex AGUILA and had the opportunity to ask questions and assume patient care.
[2020-09-06 07:00] VITALS: BP 125/89
[2020-09-06] MEDS: methylPREDNISolone sod succ/PF 40mg inj. IV SCH (07:47)
[2020-09-06] MEDS: carvedilol 6.25mg tablet PO SCH ×2 (07:48→20:29)
[2020-09-06] MEDS: furosemide 10 MG/1 ML 10ml inj IV SCH ×2 (07:48→20:31)
[2020-09-06] MEDS: aspirin 81mg tablet.DR PO SCH (07:48)
[2020-09-06] MEDS: levoTHYROXINE 25mcg tablet PO SCH (07:48)
[2020-09-06] MEDS: K and/or MAG REPLACEMENT MC SCH ×2 (08:00→20:00)
[2020-09-06 11:00] VITALS: BP 123/86
[2020-09-06 15:00] VITALS: BP 113/76
[2020-09-06 18:00] VITALS: BP 118/81
--- NOTE | 2020-09-06 18:19 | NUR ---
Problems reprioritized. Patient report given, questions answered & plan of care reviewed with Shadi AGUILA.
--- NOTE | 2020-09-06 18:20 | NUR ---
Patient in room PCU 3016. I have received report from Ngoc AGUILA and had the opportunity to ask questions and assume patient care.
[2020-09-06 22:00] VITALS: BP 112/77
[2020-09-07 02:00] VITALS: BP 126/76
[2020-09-07] MEDS: ipratropium/albuterol 3ml nebule NEB SCH ×4 (03:00→23:08)
--- NOTE | 2020-09-07 06:11 | NUR ---
Problems reprioritized. Patient report given, questions answered & plan of care reviewed with Ngoc AGUILA.
--- NOTE | 2020-09-07 06:20 | NUR ---
Patient in room PCU 3016. I have received report from Shadi AGUILA and had the opportunity to ask questions and assume patient care.
[2020-09-07 06:21] LABS: BASOPHILS % (AUTO) 0.2 % (0-1); EOSINOPHILS # (AUTO) 0.1 X10'3 (0-0.9); EOSINOPHILS % (AUTO) 0.5 % (0-6); HEMATOCRIT 47.2 % (42.0-52.0); HEMOGLOBIN 15.6 g/dl (14.0-17.9); LYMPHOCYTES # (AUTO) 1.7 X10'3 (1.1-4.8); MEAN CORPUSCULAR HEMOGLOBIN 31.2 PG (27.0-31.0); MEAN CORPUSCULAR VOLUME 94.7 FL (78-98); MEAN PLATELET VOLUME 8.3 FL (7.4-10.4); MONOCYTES % (AUTO) 9.2 % (2-12); NEUTROPHILS # (AUTO) 7.9 X10'3 (1.8-7.7); NEUTROPHILS % (AUTO) 74.1 % (42-75); PLATELET COUNT 276 X10'3 (140-440); RED BLOOD COUNT 4.99 X10'6 (4.70-6.10); RED CELL DISTRIBUTION WIDTH 14.7 % (11.5-14.5); WHITE BLOOD COUNT 10.7 X10'3 (4.5-11.0)
[2020-09-07 06:36] LABS: ALANINE AMINOTRANSFERASE 92 U/L (12-78); ALBUMIN 2.8 G/DL (3.4-5.0); ALBUMIN/GLOBULIN RATIO 0.9 (1.1-1.5); ALKALINE PHOSPHATASE 112 IU/L (46-116); ANION GAP 2 (8-16); ASPARTATE AMINO TRANSFERASE 67 U/L (10-37); BLOOD UREA NITROGEN 43 MG/DL (7-18); BUN/CREATININE RATIO 29.7 (5.4-32.0); CALCIUM 7.8 MG/DL (8.5-10.1); CHLORIDE 101 MMOL/L (99-107); CREATININE 1.45 MG/DL (0.60-1.10); GLUCOSE 98 MG/DL (70-104); MAGNESIUM 2.4 MG/DL (1.5-2.4); POTASSIUM 3.4 MMOL/L (3.5-5.1); SODIUM 142 MMOL/L (135-145); TOTAL CARBON DIOXIDE 38.9 MMOL/L (24-32); eGFR 50 ML/MIN
[2020-09-07 07:00] VITALS: BP 115/80
[2020-09-07] MEDS ORDERED: predniSONE 20 mg tablet PO SCH (08:00)
[2020-09-07] MEDS: K and/or MAG REPLACEMENT MC SCH ×2 (08:00→20:00)
[2020-09-07] MEDS: levoTHYROXINE 25mcg tablet PO SCH (09:07)
[2020-09-07] MEDS: carvedilol 6.25mg tablet PO SCH ×2 (09:07→21:39)
[2020-09-07] MEDS: furosemide 10 MG/1 ML 10ml inj IV SCH ×2 (09:07→21:39)
[2020-09-07] MEDS: aspirin 81mg tablet.DR PO SCH (09:07)
--- NOTE | 2020-09-07 09:57 | NUR ---
PAGER ID: [phone] MESSAGE: ANGIE ON [phone], [facility] HERE [facility] [place] [phone], THEY NEED YOUR SIGNATURE, CALL ME WITH YOUR LOCATION AND WE WILL BRING TO YOU. THX
[2020-09-07 11:00] VITALS: BP 123/87
[2020-09-07] MEDS ORDERED: magnesium 4gm in 100ml NS 100 ML IV PRN (11:20)
[2020-09-07] MEDS ORDERED: potassium CL 10mEq/100ml bag 100 ML IV PRN (11:20)
[2020-09-07] MEDS ORDERED: magnesium 2GM in 50ml NS 50 ML IV PRN (11:20)
[2020-09-07] MEDS ORDERED: potassium Cl 20 mEq SR tablet PO PRN (11:20)
[2020-09-07] MEDS ORDERED: potassium Cl 20mEq/100mL bag 100 ML IV PRN (11:20)
[2020-09-07] MEDS ORDERED: magnesium Cl slow-release 64mg tablet PO PRN (11:20)
--- NOTE | 2020-09-07 13:36 | NUR ---
Initial: Pt admit DX acute on chronic respiratory failure, CHF EF 30%, SCOTT, hypothyroidism, and R pleural effusion s/p 1.9L removal via thoracentesis per EMR. Hx meth abuse. PO 75-100% avg heart healthy/2L fluid-restricted diet; double proteins TIDWM added for satiety. Dietary notified. K 3.4 receiving lasix w/ PRN replacements ordered per EMR. No nutrition concerns at this time. Will continue to monitor. Rec: 1. continue heart healthy/2L fluid-restricted diet; double proteins TIDWM 2. bowel care per rx 3. wt per rx Addendum: 09/07/20 at [address] Amended: Links added.
[2020-09-07] MEDS: potassium Cl 20 mEq SR tablet PO PRN ×2 (13:57→21:39)
[2020-09-07] MEDS: piperacillin/tazo 3.375gm/50ml 50 ML IV SCH ×3 (13:57→23:49)
[2020-09-07 15:00] VITALS: BP 124/70
[2020-09-07 18:00] VITALS: BP 119/81
--- NOTE | 2020-09-07 18:16 | NUR ---
Patient in room PCU 3016. I have received report from Ngoc AGUILA and had the opportunity to ask questions and assume patient care.
--- NOTE | 2020-09-07 18:16 | NUR ---
Problems reprioritized. Patient report given, questions answered & plan of care reviewed with Shadi AGUILA.
[2020-09-07 22:00] VITALS: BP 132/66
[2020-09-08 02:00] VITALS: BP 123/92
[2020-09-08] MEDS: ipratropium/albuterol 3ml nebule NEB SCH ×3 (03:22→11:18)
[2020-09-08] MEDS: potassium Cl 20 mEq SR tablet PO PRN (03:35)
[2020-09-08 05:58] LABS: BASOPHILS % (AUTO) 0.1 % (0-1); EOSINOPHILS % (AUTO) 0.4 % (0-6); HEMATOCRIT 48.3 % (42.0-52.0); HEMOGLOBIN 15.8 g/dl (14.0-17.9); LYMPHOCYTES # (AUTO) 1.4 X10'3 (1.1-4.8); LYMPHOCYTES % (AUTO) 10.8 % (21-51); MEAN CORPUSCULAR HEMOGLOBIN 30.6 PG (27.0-31.0); MEAN CORPUSCULAR HGB CONC 32.7 g/dL (33.0-36.5); MEAN CORPUSCULAR VOLUME 93.5 FL (78-98); MEAN PLATELET VOLUME 8.3 FL (7.4-10.4); MONOCYTES % (AUTO) 8.2 % (2-12); NEUTROPHILS # (AUTO) 10.1 X10'3 (1.8-7.7); NEUTROPHILS % (AUTO) 80.5 % (42-75); PLATELET COUNT 243 X10'3 (140-440); RED BLOOD COUNT 5.16 X10'6 (4.70-6.10); RED CELL DISTRIBUTION WIDTH 14.7 % (11.5-14.5); WHITE BLOOD COUNT 12.5 X10'3 (4.5-11.0)
--- NOTE | 2020-09-08 06:05 | NUR ---
Problems reprioritized. Patient report given, questions answered & plan of care reviewed with Ngoc AGUILA.
[2020-09-08 06:12] LABS: ALANINE AMINOTRANSFERASE 88 U/L (12-78); ALBUMIN/GLOBULIN RATIO 0.9 (1.1-1.5); ALKALINE PHOSPHATASE 120 IU/L (46-116); ANION GAP 4 (8-16); ASPARTATE AMINO TRANSFERASE 48 U/L (10-37); BILIRUBIN,TOTAL 1.4 MG/DL (0.1-1.0); BLOOD UREA NITROGEN 39 MG/DL (7-18); BUN/CREATININE RATIO 24.1 (5.4-32.0); CALCIUM 8.1 MG/DL (8.5-10.1); CHLORIDE 103 MMOL/L (99-107); CREATININE 1.62 MG/DL (0.60-1.10); GLUCOSE 119 MG/DL (70-104); MAGNESIUM 2.3 MG/DL (1.5-2.4); POTASSIUM 3.8 MMOL/L (3.5-5.1); SODIUM 144 MMOL/L (135-145); TOTAL CARBON DIOXIDE 36.6 MMOL/L (24-32); TOTAL PROTEIN 6.4 G/DL (6.4-8.2); eGFR 44 ML/MIN
--- NOTE | 2020-09-08 06:12 | NUR ---
Patient in room PCU 3016. I have received report from Shadi AGUILA and had the opportunity to ask questions and assume patient care.
[2020-09-08 07:00] VITALS: BP 113/77
[2020-09-08] MEDS ORDERED: K and/or MAG REPLACEMENT MC SCH (08:00)
[2020-09-08] MEDS ORDERED: FURO40TA4 PO (10:35)
[2020-09-08] MEDS ORDERED: SPIR25TA5 PO (10:35)
[2020-09-08] MEDS ORDERED: LISI2.5T2 PO (10:35)
[2020-09-08] MEDS ORDERED: LEVO500T89 PO (10:42)
[2020-09-08 11:00] VITALS: BP 125/88
--- NOTE | 2020-09-08 12:49 | NUR ---
Patient stable for discharge per MD order. All discharge information and education reviewed with patient before signing necessary paperwork. Telemetry monitoring discontinued and returned, all patient belongings packed up and sent with patient, new Rx called in to patient's preferred pharmacy. Wheeled down to lobby and picked up by his girlfriend.
== END 2020-09-08 12:11 | disposition home or self-care (01) | DRG 133 ==
LOC: ER 15:01 → ED HOLD 09-02 00:22 → PCU 3S 09-02 03:20
PROVIDERS: ADMIT Family Medicine; ATTEND Internal Medicine
PROC: 5A09457 Assistance with Respiratory Ventilation, 24-96 Consecutive Hours, Continuous Positive Airway Pressure (ICD-10-PCS; principal; 2020-09-01)
PROC: B32T1ZZ Computerized Tomography (CT Scan) of Left Pulmonary Artery using Low Osmolar Contrast (ICD-10-PCS; 2020-09-01)
PROC: B3201ZZ Computerized Tomography (CT Scan) of Thoracic Aorta using Low Osmolar Contrast (ICD-10-PCS; 2020-09-01)
PROC: B32S1ZZ Computerized Tomography (CT Scan) of Right Pulmonary Artery using Low Osmolar Contrast (ICD-10-PCS; 2020-09-01)
PROC: 0W993ZZ Drainage of Right Pleural Cavity, Percutaneous Approach (ICD-10-PCS; 2020-09-02)
PROC: 5A09357 Assistance with Respiratory Ventilation, Less than 24 Consecutive Hours, Continuous Positive Airway Pressure (ICD-10-PCS; 2020-09-04)
PROC: 5A09357 Assistance with Respiratory Ventilation, Less than 24 Consecutive Hours, Continuous Positive Airway Pressure (ICD-10-PCS; 2020-09-05)
PROC: 5A09357 Assistance with Respiratory Ventilation, Less than 24 Consecutive Hours, Continuous Positive Airway Pressure (ICD-10-PCS; 2020-09-07)
DX: J96.01 Acute respiratory failure with hypoxia (principal); I11.0 Hypertensive heart disease with heart failure; J44.1 Chronic obstructive pulmonary disease with (acute) exacerbation; G92 Toxic encephalopathy; Z20.828 Contact with and (suspected) exposure to other viral communicable diseases; J91.8 Pleural effusion in other conditions classified elsewhere; E66.01 Morbid (severe) obesity due to excess calories; I47.2 Ventricular tachycardia; I50.23 Acute on chronic systolic (congestive) heart failure; J44.0 Chronic obstructive pulmonary disease with (acute) lower respiratory infection; R18.8 Other ascites; F15.10 Other stimulant abuse, uncomplicated; N17.9 Acute kidney failure, unspecified; J18.9 Pneumonia, unspecified organism; F17.200 Nicotine dependence, unspecified, uncomplicated; J96.02 Acute respiratory failure with hypercapnia; Z79.82 Long term (current) use of aspirin; Z79.899 Other long term (current) drug therapy; Z91.030 Bee allergy status; Z68.41 Body mass index [BMI] 40.0-44.9, adult; Z71.6 Tobacco abuse counseling
CPT/HCPCS: 32555; 36415; 36600; 49083; 70450; 71045; 71275; 76705; 80053; 80061; 80305; 81003; 82803; 83605; 83735; 83880; 84145; 84439; 84443; 84484; 85018; 85025; 85379; 86140; 87040; 87070; 87081; 87635; 93005; 93306; 93308; 94640; 94660; 94760; 96374; 97161; 97530; 99285; C9803; G0378; J1940; J2543; J2920; J2930; J7512; Q9967

== ENCOUNTER 2020-11-21 03:40 | Inpatient (IN) | payer MEDICAID ==
[2020-11-21] VITALS (19 sets, daily range): BP systolic 85–126; BP diastolic 55–80
[~2020-11-21] VITALS: Ht 177.8 cm; Wt 122.9 kg
[~2020-11-21 03:40] MED LIST changes: -ALBU8.5H8 INH; -BUDE10.22 INH; +CARV6.256 PO; -CEFD300C21 PO; -FURO-150 PO; +FURO40TA4 PO; -ISOS30TA6 PO; -LACT1CAP26 PO; -LEVO25TA7 PO; +LISI2.5T2 PO; -METO50TA7 PO; -PRED10TA23 PO; +SPIR25TA5 PO
[2020-11-21] MEDS ORDERED: furosemide 10 MG/1 ML 10ml inj IV ONE (04:10)
[2020-11-21 04:25] LABS: BASOPHILS % (AUTO) 0.1 % (0-1); EOSINOPHILS # (AUTO) 0.1 X10'3 (0-0.9); EOSINOPHILS % (AUTO) 0.5 % (0-6); HEMATOCRIT 45.9 % (42.0-52.0); LYMPHOCYTES # (AUTO) 0.7 X10'3 (1.1-4.8); LYMPHOCYTES % (AUTO) 4.9 % (21-51); MEAN CORPUSCULAR HEMOGLOBIN 30.7 PG (27.0-31.0); MEAN CORPUSCULAR HGB CONC 32.7 g/dL (33.0-36.5); MONOCYTES # (AUTO) 0.6 X10'3 (0-0.9); MONOCYTES % (AUTO) 4.5 % (2-12); PLATELET COUNT 267 X10'3 (140-440); RED BLOOD COUNT 4.88 X10'6 (4.70-6.10); RED CELL DISTRIBUTION WIDTH 16.9 % (11.5-14.5); WHITE BLOOD COUNT 14.4 X10'3 (4.5-11.0)
[2020-11-21 04:30] LABS: ALANINE AMINOTRANSFERASE 60 U/L (12-78); ALBUMIN 2.7 G/DL (3.4-5.0); ALBUMIN/GLOBULIN RATIO 0.7 (1.1-1.5); ALKALINE PHOSPHATASE 122 IU/L (46-116); ANION GAP 8 (8-16); ASPARTATE AMINO TRANSFERASE 75 U/L (10-37); BILIRUBIN,TOTAL 2.6 MG/DL (0.1-1.0); BLOOD UREA NITROGEN 55 MG/DL (7-18); CALCIUM 8.7 MG/DL (8.5-10.1); CHLORIDE 97 MMOL/L (99-107); CREATININE 2.75 MG/DL (0.60-1.10); GLUCOSE 117 MG/DL (70-104); POTASSIUM 4.1 MMOL/L (3.5-5.1); SODIUM 137 MMOL/L (135-145); TOTAL CARBON DIOXIDE 32.5 MMOL/L (24-32); TOTAL PROTEIN 6.8 G/DL (6.4-8.2); eGFR 24 ML/MIN
[2020-11-21] MEDS ORDERED: VANCOMYCIN IV ONE ×2 (05:00→05:03)
[2020-11-21] MEDS ORDERED: piperacillin/tazo 3.375gm/50ml 50 ML IV ONE (05:00)
[2020-11-21] MEDS ORDERED: NORMAL SALINE IV ONE ×2 (05:00→05:03)
[2020-11-21] MEDS ORDERED: normal saline 1000ML IV soln IVB ONE ×2 (05:00→05:55)
[2020-11-21 05:46] LABS: CLARITY,URINE CLEAR (Clear); COLOR,URINE AMBER (Yellow); GLUCOSE, URINE NEGATIVE (Neg); KETONES,URINE NEGATIVE (Neg); LEUKOCYTE ESTERASE ,URINE NEGATIVE (Neg); NITRITES, URINE NEGATIVE (Neg); OCCULT BLOOD,URINE NEGATIVE (Neg); PH,URINE 5.5 (4.8-8.0); PROTEIN,URINE TRACE mg/dl (Neg)
[2020-11-21] MEDS ORDERED: nitroGLYCERIN-Tridil 50MG/D5W 250 ML IV PRN ×2 (05:55→06:15)
[2020-11-21] MEDS ORDERED: NORepinephrine 8mg/ 250ml NS 250 ML IV PRN ×2 (05:55→06:15)
[2020-11-21 05:56] LABS: UA COLLECTION TYPE URINAL
[2020-11-21 05:59] LABS: RBC,URINE 20-50 /HPF (0-2); URINE AMPHETAMINE SCREEN POSITIVE (Neg); URINE BARBITUATE SCREEN NEGATIVE (Neg); URINE BENZODIAZEPINES SCREEN NEGATIVE (Neg); URINE CANNABINOID SCREEN NEGATIVE (Neg); URINE COCAINE SCREEN NEGATIVE (Neg); URINE METHADONE SCREEN NEGATIVE (Neg); URINE OPIATE SCREEN NEGATIVE (Neg); URINE PHENCYCLIDINE SCREEN NEGATIVE (Neg); WBC,URINE NONE SEEN /HPF (0-4)
[2020-11-21 06:00] LABS: BACTERIA,URINE FEW /HPF (Neg); SQUAMOUS EPITHELIAL CELL,UR FEW /LPF (FEW)
--- NOTE | 2020-11-21 06:08 | NUR ---
DR GRANT APPROVED USE OF CL AFTER VIEWING CXR
[2020-11-21] MEDS ORDERED: magnesium 2GM in 50ml NS 50 ML IV PRN (06:15)
[2020-11-21] MEDS: K, MAG and/or Phos replacement - Verify level? MC SCH ×2 (06:15→08:00)
[2020-11-21] MEDS ORDERED: LIDOcaine 2% 10ml TOPICAL JELLY (Urojet) TP ONE (06:15)
[2020-11-21] MEDS ORDERED: magnesium 4gm in 100ml NS 100 ML IV PRN (06:15)
[2020-11-21] MEDS ORDERED: acetaminophen 650mg rectal suppository RC PRN (06:15)
[2020-11-21] MEDS ORDERED: potassium Cl 20 mEq SR tablet PO PRN ×2 (06:15)
[2020-11-21] MEDS ORDERED: ondansetron/PF 4mg/2ml inj IV PRN (06:15)
[2020-11-21] MEDS ORDERED: furosemide inj 1,000 MG in normal saline 250ml IV soln 150 ML IV SCH (06:15)
[2020-11-21] MEDS ORDERED: acetaminophen 325mg tablet PO PRN ×2 (06:15)
[2020-11-21] MEDS ORDERED: morphine 2 MG/ML inj. syringe IV PRN (06:15)
[2020-11-21] MEDS ORDERED: potassium Cl 40MEQ/250ML bag 270 ML IV PRN ×2 (06:15)
[2020-11-21] MEDS ORDERED: magnesium Cl slow-release 64mg tablet PO PRN (06:15)
[2020-11-21] MEDS ORDERED: morphine 4 MG/ML inj SYRINge IV PRN (06:15)
--- NOTE | 2020-11-21 07:15 | NUR ---
Bilateral pedal pulses verified with dopler. Marked spot.
[2020-11-21] MEDS: piperacillin/tazo 3.375gm/50ml 50 ML IV SCH ×2 (08:00→15:50)
--- NOTE | 2020-11-21 08:00 | NUR ---
received from er by negra bae
[2020-11-21] MEDS: HYDROcodone/acetaminophen 10/325mg tab PO PRN ×2 (09:20→13:45)
[2020-11-21] MEDS: hydrocortisone sod succ/PF 100mg/2ml inj. IV SCH ×3 (10:00→20:00)
--- NOTE | 2020-11-21 10:00 | NUR ---
norco given for left leg pain- effective, dr garsia in updated. nitro off and levo decreased.
[2020-11-21] MEDS ORDERED: LISI2.5T89 PO (11:37)
[2020-11-21] MEDS ORDERED: SPIR25TA5 PO (11:37)
[2020-11-21] MEDS ORDERED: ZAR2.5T PO (11:37)
[2020-11-21] MEDS: CLINDAMYCIN/D5W 900mg/50ml 50 ML IV SCH (13:37)
--- NOTE | 2020-11-21 14:00 | NUR ---
satya by ir- 1950 out rt chest, cl pulled slightly out, but good blood return in 3 ports, 1 port taped.. levo off- lasix gtt started. liquids taken well
[2020-11-21] MEDS ORDERED: ipratropium/albuterol 3ml nebule NEB PRN (15:35)
[2020-11-21 16:12] LABS: ALBUMIN 2.5 G/DL (3.4-5.0); ANION GAP 6 (8-16); BLOOD UREA NITROGEN 58 MG/DL (7-18); BUN/CREATININE RATIO 22.1 (5.4-32.0); CALCIUM 8.5 MG/DL (8.5-10.1); CHLORIDE 95 MMOL/L (99-107); CREATININE 2.63 MG/DL (0.60-1.10); GLUCOSE 205 MG/DL (70-104); MAGNESIUM 2.2 MG/DL (1.5-2.4); PHOSPHORUS 5.7 MG/DL (2.3-4.5); POTASSIUM 4.4 MMOL/L (3.5-5.1); SODIUM 133 MMOL/L (135-145); TOTAL CARBON DIOXIDE 31.7 MMOL/L (24-32); eGFR 25 ML/MIN
--- NOTE | 2020-11-21 17:30 | NUR ---
cl leaking- dcd. ivs to rt ac piv
[2020-11-21] MEDS: carvedilol 6.25mg tablet PO SCH (20:00)
[2020-11-21] MEDS: lactobacillus rhamnosus 10,000 MMU CELLS/CAPSULE PO SCH (20:00)
--- NOTE | 2020-11-21 22:06 | NUR ---
Spoke to [facility] nurse practitioner Ernesto Castano Regarding urine less then parameter however Cr. is elevated, do not change the Lasix drip at this time, reevaluate with the next labs.
[2020-11-22] VITALS (23 sets, daily range): BP systolic 88–115; BP diastolic 48–81
[2020-11-22 01:29] LABS: BASOPHILS % (AUTO) 0.2 % (0-1); EOSINOPHILS # (AUTO) 0.1 X10'3 (0-0.9); EOSINOPHILS % (AUTO) 0.8 % (0-6); HEMATOCRIT 45.2 % (42.0-52.0); HEMOGLOBIN 14.6 g/dl (14.0-17.9); LYMPHOCYTES # (AUTO) 0.4 X10'3 (1.1-4.8); LYMPHOCYTES % (AUTO) 2.4 % (21-51); MEAN CORPUSCULAR HEMOGLOBIN 30.7 PG (27.0-31.0); MEAN CORPUSCULAR HGB CONC 32.3 g/dL (33.0-36.5); MEAN CORPUSCULAR VOLUME 94.9 FL (78-98); MEAN PLATELET VOLUME 8.4 FL (7.4-10.4); MONOCYTES # (AUTO) 0.6 X10'3 (0-0.9); MONOCYTES % (AUTO) 3.7 % (2-12); NEUTROPHILS # (AUTO) 15.2 X10'3 (1.8-7.7); NEUTROPHILS % (AUTO) 92.9 % (42-75); PLATELET COUNT 212 X10'3 (140-440); RED BLOOD COUNT 4.76 X10'6 (4.70-6.10); RED CELL DISTRIBUTION WIDTH 17.2 % (11.5-14.5); WHITE BLOOD COUNT 16.3 X10'3 (4.5-11.0)
[2020-11-22] MEDS: CLINDAMYCIN/D5W 900mg/50ml 50 ML IV SCH ×3 (02:50→16:02)
[2020-11-22] MEDS: piperacillin/tazo 3.375gm/50ml 50 ML IV SCH ×3 (02:52→16:02)
[2020-11-22 02:58] LABS: ANISOCYTOSIS 1+; NUCLEATED RED BLOOD CELLS 1 /100WBC (0-0); PLATELET ESTIMATE NORMAL; POLYCHROMASIA FEW; TOTAL CELLS COUNTED 100
[2020-11-22] MEDS: hydrocortisone sod succ/PF 100mg/2ml inj. IV SCH ×4 (02:59→20:00)
[2020-11-22 03:15] LABS: ALANINE AMINOTRANSFERASE 55 U/L (12-78); ALBUMIN 2.4 G/DL (3.4-5.0); ALBUMIN/GLOBULIN RATIO 0.5 (1.1-1.5); ALKALINE PHOSPHATASE 128 IU/L (46-116); ANION GAP 8 (8-16); ASPARTATE AMINO TRANSFERASE 39 U/L (10-37); BILIRUBIN,TOTAL 1.6 MG/DL (0.1-1.0); BLOOD UREA NITROGEN 64 MG/DL (7-18); BUN/CREATININE RATIO 20.6 (5.4-32.0); CALCIUM 8.4 MG/DL (8.5-10.1); CHLORIDE 95 MMOL/L (99-107); CREATININE 3.11 MG/DL (0.60-1.10); GLUCOSE 167 MG/DL (70-104); MAGNESIUM 2.5 MG/DL (1.5-2.4); PHOSPHORUS 7.5 MG/DL (2.3-4.5); POTASSIUM 4.8 MMOL/L (3.5-5.1); SODIUM 134 MMOL/L (135-145); TOTAL CARBON DIOXIDE 31.5 MMOL/L (24-32); TOTAL PROTEIN 7.1 G/DL (6.4-8.2); eGFR 21 ML/MIN
--- NOTE | 2020-11-22 04:36 | NUR ---
PT has poor urinary output. creatinine is 3.11, Notified Tin Castano NP. He said to keep the Lasix drip running while he talks it over with the oncoming Supervisor Wrapping Room.
[2020-11-22 06:26] LABS: ALBUMIN 2.4 G/DL (3.4-5.0); ANION GAP 8 (8-16); BLOOD UREA NITROGEN 66 MG/DL (7-18); BUN/CREATININE RATIO 21.7 (5.4-32.0); CALCIUM 8.5 MG/DL (8.5-10.1); CHLORIDE 95 MMOL/L (99-107); CREATININE 3.04 MG/DL (0.60-1.10); GLUCOSE 189 MG/DL (70-104); MAGNESIUM 2.5 MG/DL (1.5-2.4); PHOSPHORUS 7.4 MG/DL (2.3-4.5); POTASSIUM 4.6 MMOL/L (3.5-5.1); SODIUM 134 MMOL/L (135-145); TOTAL CARBON DIOXIDE 30.8 MMOL/L (24-32); eGFR 21 ML/MIN
[2020-11-22] MEDS: K, MAG and/or Phos replacement - Verify level? MC SCH (08:00)
[2020-11-22] MEDS ORDERED: aspirin 81mg tablet.DR PO SCH (08:00)
[2020-11-22] MEDS: lisinopril 2.5mg tablet PO SCH (08:00)
[2020-11-22] MEDS: potassium Cl 20 mEq SR tablet PO SCH (08:32)
[2020-11-22] MEDS: metolazone 2.5mg tablet PO SCH (08:32)
[2020-11-22] MEDS: lactobacillus rhamnosus 10,000 MMU CELLS/CAPSULE PO SCH ×2 (08:32→20:00)
[2020-11-22] MEDS: carvedilol 6.25mg tablet PO SCH ×2 (08:33→20:00)
[2020-11-22] MEDS: spironolactone 25 MG tablet PO SCH (08:33)
[2020-11-22] MEDS: vancomycin/NS 1 GM ADD-VANTAGE 250 ML IV SCH (08:33)
[2020-11-22] MEDS: HYDROcodone/acetaminophen 5mg/325mg tablet PO PRN ×2 (08:43→16:20)
--- NOTE | 2020-11-22 09:46 | NUR ---
Joe Consult: Pt admit DX R pleural effusion r/t CHF s/p thoracentesis -1950ml fluid removal, sepsis, CHF exacerbation, SCOTT, and extensive cellulitis from toes to nipples per MD notes. Hx CHF, COPD, HTN, smoking, and positive for meth this admit as well per EMR. Joe 11; skin intact w/ BLE 3+ non-pitting edema per EMR. Pt PO 100% full liquid meals lunch/dinner yesterday advanced to EC7 diet today pending PO hx. No BM yet though just admit yesterday. Will monitor for PO acceptance and tolerance on first solid diet this admit as well as additional protein/kcal/ONS needs. Rec: 1. continue Easy to Chew 7/regular diet per MD; monitor for texture modifications as medically indicated 2. monitor for ONS needs pending PO hx 3. routine bowel care 4. daily wts Addendum: 11/22/20 at [address] Amended: Links added.
[2020-11-22 09:51] LABS: ALBUMIN 2.3 G/DL (3.4-5.0); ANION GAP 10 (8-16); BLOOD UREA NITROGEN 69 MG/DL (7-18); BUN/CREATININE RATIO 22.4 (5.4-32.0); CALCIUM 8.4 MG/DL (8.5-10.1); CHLORIDE 94 MMOL/L (99-107); CREATININE 3.08 MG/DL (0.60-1.10); GLUCOSE 214 MG/DL (70-104); MAGNESIUM 2.4 MG/DL (1.5-2.4); SODIUM 134 MMOL/L (135-145); TOTAL CARBON DIOXIDE 30.5 MMOL/L (24-32); eGFR 21 ML/MIN
[2020-11-22 09:54] LABS: POTASSIUM 4.9 MMOL/L (3.5-5.1)
[2020-11-22] MEDS: aspirin 81mg tablet.DR PO SCH (10:06)
[2020-11-22] MEDS: furosemide 20 MG/2 ML vial IV SCH ×2 (13:09→20:01)
[2020-11-22 15:50] LABS: ALBUMIN 2.3 G/DL (3.4-5.0); ANION GAP 4 (8-16); BLOOD UREA NITROGEN 75 MG/DL (7-18); BUN/CREATININE RATIO 24.4 (5.4-32.0); CALCIUM 8.5 MG/DL (8.5-10.1); CHLORIDE 95 MMOL/L (99-107); CREATININE 3.08 MG/DL (0.60-1.10); GLUCOSE 189 MG/DL (70-104); MAGNESIUM 2.6 MG/DL (1.5-2.4); PHOSPHORUS 6.1 MG/DL (2.3-4.5); POTASSIUM 4.8 MMOL/L (3.5-5.1); SODIUM 131 MMOL/L (135-145); TOTAL CARBON DIOXIDE 32.4 MMOL/L (24-32); eGFR 21 ML/MIN
--- NOTE | 2020-11-22 18:55 | NUR ---
I have received report and assumed care of pt. Pt resting in bed rise and fall of chest cavity equile and symmetrical. pt denies needs at this time assessment complete
[2020-11-22] MEDS: HYDROcodone/acetaminophen 10/325mg tab PO PRN (20:01)
[2020-11-22 22:01] LABS: ALBUMIN 2.2 G/DL (3.4-5.0); ANION GAP 4 (8-16); BLOOD UREA NITROGEN 79 MG/DL (7-18); BUN/CREATININE RATIO 26.1 (5.4-32.0); CALCIUM 8.2 MG/DL (8.5-10.1); CHLORIDE 95 MMOL/L (99-107); CREATININE 3.03 MG/DL (0.60-1.10); GLUCOSE 189 MG/DL (70-104); MAGNESIUM 2.6 MG/DL (1.5-2.4); PHOSPHORUS 5.9 MG/DL (2.3-4.5); POTASSIUM 4.7 MMOL/L (3.5-5.1); SODIUM 131 MMOL/L (135-145); TOTAL CARBON DIOXIDE 32.1 MMOL/L (24-32); eGFR 22 ML/MIN
[2020-11-23] VITALS (26 sets, daily range): BP systolic 99–118; BP diastolic 47–83
[2020-11-23] MEDS: piperacillin/tazo 3.375gm/50ml 50 ML IV SCH ×2 (00:18→07:17)
[2020-11-23] MEDS: CLINDAMYCIN/D5W 900mg/50ml 50 ML IV SCH ×4 (00:20→23:36)
[2020-11-23] MEDS: hydrocortisone sod succ/PF 100mg/2ml inj. IV SCH ×2 (02:03→07:17)
[2020-11-23] MEDS: furosemide 20 MG/2 ML vial IV SCH ×4 (02:04→20:07)
[2020-11-23] MEDS: HYDROcodone/acetaminophen 10/325mg tab PO PRN (04:11)
[2020-11-23] MEDS: vancomycin/NS 1 GM ADD-VANTAGE 250 ML IV SCH (05:18)
--- NOTE | 2020-11-23 06:02 | NUR ---
report given to rec rn plan of care reviewed
[2020-11-23 06:28] LABS: BASOPHILS % (AUTO) 0.1 % (0-1); LYMPHOCYTES # (AUTO) 0.5 X10'3 (1.1-4.8); LYMPHOCYTES % (AUTO) 2.6 % (21-51); MEAN CORPUSCULAR HGB CONC 32.7 g/dL (33.0-36.5); NEUTROPHILS # (AUTO) 17.3 X10'3 (1.8-7.7); RED BLOOD COUNT 4.85 X10'6 (4.70-6.10); WHITE BLOOD COUNT 18.9 X10'3 (4.5-11.0)
[2020-11-23 06:30] LABS: EOSINOPHILS % (AUTO) 0.1 % (0-6); HEMATOCRIT 46.1 % (42.0-52.0); HEMOGLOBIN 15.1 g/dl (14.0-17.9); MEAN CORPUSCULAR HEMOGLOBIN 31.1 PG (27.0-31.0); MEAN CORPUSCULAR VOLUME 95.1 FL (78-98); MEAN PLATELET VOLUME 7.9 FL (7.4-10.4); MONOCYTES % (AUTO) 5.4 % (2-12); NEUTROPHILS % (AUTO) 91.8 % (42-75); PLATELET COUNT 173 X10'3 (140-440); RED CELL DISTRIBUTION WIDTH 17.2 % (11.5-14.5)
[2020-11-23 06:37] LABS: ALANINE AMINOTRANSFERASE 51 U/L (12-78); ALBUMIN 2.1 G/DL (3.4-5.0); ALBUMIN/GLOBULIN RATIO 0.4 (1.1-1.5); ALKALINE PHOSPHATASE 133 IU/L (46-116); ANION GAP 6 (8-16); ASPARTATE AMINO TRANSFERASE 29 U/L (10-37); BILIRUBIN,TOTAL 1.2 MG/DL (0.1-1.0); BLOOD UREA NITROGEN 81 MG/DL (7-18); BUN/CREATININE RATIO 27.8 (5.4-32.0); CALCIUM 8.1 MG/DL (8.5-10.1); CHLORIDE 94 MMOL/L (99-107); CREATININE 2.91 MG/DL (0.60-1.10); GLUCOSE 166 MG/DL (70-104); MAGNESIUM 2.5 MG/DL (1.5-2.4); PHOSPHORUS 5.9 MG/DL (2.3-4.5); POTASSIUM 4.7 MMOL/L (3.5-5.1); SODIUM 133 MMOL/L (135-145); TOTAL CARBON DIOXIDE 33.3 MMOL/L (24-32); TOTAL PROTEIN 6.9 G/DL (6.4-8.2); eGFR 23 ML/MIN
[2020-11-23] MEDS: carvedilol 6.25mg tablet PO SCH ×2 (07:16→20:07)
[2020-11-23] MEDS: lactobacillus rhamnosus 10,000 MMU CELLS/CAPSULE PO SCH ×2 (07:16→20:06)
[2020-11-23] MEDS: aspirin 81mg tablet.DR PO SCH (07:17)
[2020-11-23] MEDS: potassium Cl 20 mEq SR tablet PO SCH (07:17)
[2020-11-23] MEDS: spironolactone 25 MG tablet PO SCH (07:17)
[2020-11-23] MEDS: K, MAG and/or Phos replacement - Verify level? MC SCH (07:18)
[2020-11-23] MEDS: lisinopril 2.5mg tablet PO SCH (07:18)
[2020-11-23] MEDS: metolazone 2.5mg tablet PO SCH (07:27)
[2020-11-23] MEDS: HYDROcodone/acetaminophen 5mg/325mg tablet PO PRN ×2 (08:24→16:32)
[2020-11-23 09:11] LABS: ALBUMIN 2.1 G/DL (3.4-5.0); ANION GAP 7 (8-16); BLOOD UREA NITROGEN 82 MG/DL (7-18); BUN/CREATININE RATIO 28.4 (5.4-32.0); CALCIUM 8.2 MG/DL (8.5-10.1); CHLORIDE 96 MMOL/L (99-107); CREATININE 2.89 MG/DL (0.60-1.10); GLUCOSE 197 MG/DL (70-104); MAGNESIUM 2.5 MG/DL (1.5-2.4); PHOSPHORUS 5.5 MG/DL (2.3-4.5); POTASSIUM 4.5 MMOL/L (3.5-5.1); SODIUM 135 MMOL/L (135-145); TOTAL CARBON DIOXIDE 32.3 MMOL/L (24-32); eGFR 23 ML/MIN
[2020-11-23] MEDS: CefTRIAXone 2gm/D5W 50ml BAG 50 ML IV SCH (09:25)
[2020-11-23 15:32] LABS: ALBUMIN 2.1 G/DL (3.4-5.0); ANION GAP 6 (8-16); BLOOD UREA NITROGEN 84 MG/DL (7-18); BUN/CREATININE RATIO 31.9 (5.4-32.0); CALCIUM 8.2 MG/DL (8.5-10.1); CHLORIDE 97 MMOL/L (99-107); CREATININE 2.63 MG/DL (0.60-1.10); GLUCOSE 153 MG/DL (70-104); MAGNESIUM 2.5 MG/DL (1.5-2.4); PHOSPHORUS 5.5 MG/DL (2.3-4.5); POTASSIUM 4.4 MMOL/L (3.5-5.1); SODIUM 134 MMOL/L (135-145); TOTAL CARBON DIOXIDE 31.3 MMOL/L (24-32); eGFR 25 ML/MIN
[2020-11-23 17:13] LABS: LDH,BODY FLUID 1656 U/L; TOTAL PROTEIN,BODY FLUID 3.2 G/DL
[2020-11-23 17:25] LABS: LYMPHOCYTES,BODY FLUID 4 %; MONOCYTES,BODY FLUID 5 %; NEUTROPHILS,BODY FLUID 91 %
[2020-11-23 17:26] LABS: BFAPPEAR CLOUDY
[2020-11-23 17:27] LABS: BF RBC COUNT 1550 /CU MM; BF WBC COUNT 3325 /CU MM (0-1000); BFCOLOR YELLOW
--- NOTE | 2020-11-23 18:20 | NUR ---
Patient in room CICU 2013. I have received report from AYLA Henderson and had the opportunity to ask questions and assume patient care. Patient just finished dinner and is sleeping comfortably, I will continue to monitor.
--- NOTE | 2020-11-23 20:25 | NUR ---
Patient itching pannus area, he has a red rash. Per Tin Castano,FP order Benadryl 25mg IV Q6hr for itching.
[2020-11-23] MEDS ORDERED: diphenhydrAMINE 50 mg/ml inj IV PRN (20:35)
[2020-11-23 21:12] LABS: ANION GAP 5 (8-16); BLOOD UREA NITROGEN 83 MG/DL (7-18); BUN/CREATININE RATIO 33.1 (5.4-32.0); CALCIUM 8.1 MG/DL (8.5-10.1); CHLORIDE 96 MMOL/L (99-107); CREATININE 2.51 MG/DL (0.60-1.10); GLUCOSE 162 MG/DL (70-104); MAGNESIUM 2.4 MG/DL (1.5-2.4); PHOSPHORUS 5.1 MG/DL (2.3-4.5); POTASSIUM 4.3 MMOL/L (3.5-5.1); SODIUM 135 MMOL/L (135-145); TOTAL CARBON DIOXIDE 33.9 MMOL/L (24-32); eGFR 27 ML/MIN
[2020-11-24] VITALS (20 sets, daily range): BP systolic 18–128; BP diastolic 48–84
[2020-11-24] MEDS: furosemide 20 MG/2 ML vial IV SCH ×2 (01:52→07:19)
[2020-11-24] MEDS ORDERED: VANCOMYCIN LEVEL IV ONE (05:30)
--- NOTE | 2020-11-24 06:14 | NUR ---
Problems reprioritized. Patient report given, questions answered & plan of care reviewed with AYLA Mayo.
[2020-11-24 06:38] LABS: HEMOGLOBIN 14.5 g/dl (14.0-17.9)
[2020-11-24 06:41] LABS: HEMATOCRIT 44.1 % (42.0-52.0); MEAN CORPUSCULAR VOLUME 93.9 FL (78-98); MEAN PLATELET VOLUME 8.2 FL (7.4-10.4); PLATELET COUNT 163 X10'3 (140-440); RED BLOOD COUNT 4.69 X10'6 (4.70-6.10); RED CELL DISTRIBUTION WIDTH 16.9 % (11.5-14.5)
[2020-11-24 06:47] LABS: ALANINE AMINOTRANSFERASE 36 U/L (12-78); ALBUMIN 1.8 G/DL (3.4-5.0); ALBUMIN/GLOBULIN RATIO 0.4 (1.1-1.5); ALKALINE PHOSPHATASE 104 IU/L (46-116); ANION GAP 2 (8-16); ASPARTATE AMINO TRANSFERASE 18 U/L (10-37); BILIRUBIN,TOTAL 0.8 MG/DL (0.1-1.0); BLOOD UREA NITROGEN 81 MG/DL (7-18); BUN/CREATININE RATIO 36.8 (5.4-32.0); CHLORIDE 98 MMOL/L (99-107); GLUCOSE 132 MG/DL (70-104); MAGNESIUM 2.4 MG/DL (1.5-2.4); PHOSPHORUS 4.5 MG/DL (2.3-4.5); POTASSIUM 4.1 MMOL/L (3.5-5.1); SODIUM 136 MMOL/L (135-145); TOTAL CARBON DIOXIDE 36.5 MMOL/L (24-32); VANCOMYCIN,TROUGH 15.7 UG/ML (6.0-14.0); eGFR 31 ML/MIN
[2020-11-24] MEDS: CLINDAMYCIN/D5W 900mg/50ml 50 ML IV SCH ×2 (07:17→16:10)
[2020-11-24 07:18] LABS: ANISOCYTOSIS 1+; PLATELET ESTIMATE NORMAL; TOTAL CELLS COUNTED 100
[2020-11-24] MEDS: CefTRIAXone 2gm/D5W 50ml BAG 50 ML IV SCH (07:18)
[2020-11-24] MEDS: aspirin 81mg tablet.DR PO SCH (07:19)
[2020-11-24] MEDS: carvedilol 6.25mg tablet PO SCH ×2 (07:19→19:51)
[2020-11-24] MEDS: lactobacillus rhamnosus 10,000 MMU CELLS/CAPSULE PO SCH ×2 (07:20→19:51)
[2020-11-24] MEDS: metolazone 2.5mg tablet PO SCH (07:20)
[2020-11-24] MEDS: spironolactone 25 MG tablet PO SCH (07:20)
[2020-11-24] MEDS: potassium Cl 20 mEq SR tablet PO SCH (07:20)
[2020-11-24] MEDS: lisinopril 2.5mg tablet PO SCH (07:20)
[2020-11-24] MEDS: K, MAG and/or Phos replacement - Verify level? MC SCH (07:48)
[2020-11-24] MEDS: HYDROcodone/acetaminophen 5mg/325mg tablet PO PRN (09:09)
[2020-11-24 09:21] LABS: ALBUMIN 1.8 G/DL (3.4-5.0); BLOOD UREA NITROGEN 79 MG/DL (7-18); BUN/CREATININE RATIO 36.4 (5.4-32.0); CALCIUM 7.9 MG/DL (8.5-10.1); CREATININE 2.17 MG/DL (0.60-1.10); GLUCOSE 192 MG/DL (70-104); MAGNESIUM 2.2 MG/DL (1.5-2.4); PHOSPHORUS 3.8 MG/DL (2.3-4.5); TOTAL CARBON DIOXIDE 36.6 MMOL/L (24-32); eGFR 32 ML/MIN
[2020-11-24 09:22] LABS: ANION GAP 4 (8-16); CHLORIDE 96 MMOL/L (99-107); POTASSIUM 3.5 MMOL/L (3.5-5.1); SODIUM 137 MMOL/L (135-145)
[2020-11-24] MEDS ORDERED: NORepinephrine 8mg/ 250ml NS 250 ML IV PRN (09:59)
[2020-11-24] MEDS: penicillin G potassium inj 2,000,000 UNIT in normal saline 100ml IV soln 100 ML IV SCH ×3 (10:09→21:30)
--- NOTE | 2020-11-24 11:50 | NUR ---
Patient in room PCU 3013. I have received report from AYLA Robbins and had the opportunity to ask questions and assume patient care.
[2020-11-24] MEDS ORDERED: albumin (human) 25% 100 ML IV solution IV ONE (12:05)
[2020-11-24] MEDS: amiodarone 200mg tablet PO SCH ×2 (12:49→19:51)
--- NOTE | 2020-11-24 16:22 | NUR ---
Gave report to AYLA Green on Telemetry.
--- NOTE | 2020-11-24 16:22 | NUR ---
Patient in room CICU 2013. I have received report from Maria Esther AGUILA and had the opportunity to ask questions and assume patient care.
[2020-11-24] MEDS: HYDROcodone/acetaminophen 10/325mg tab PO PRN (17:39)
--- NOTE | 2020-11-24 18:00 | NUR ---
Pt transferred to Telemetry floor bed 3013 per bed, in stable condition.
--- NOTE | 2020-11-24 18:14 | NUR ---
Problems reprioritized. Patient report given, questions answered & plan of care reviewed with Olga AGUILA. Addendum: 11/24/20 at 1815 by Norma Patel RN above in error
--- NOTE | 2020-11-24 18:35 | NUR ---
Problems reprioritized. Patient report given, questions answered & plan of care reviewed with Mariah AGUILA.
[2020-11-24 21:28] LABS: ALBUMIN 2.4 G/DL (3.4-5.0); ANION GAP 5 (8-16); BLOOD UREA NITROGEN 79 MG/DL (7-18); BUN/CREATININE RATIO 41.4 (5.4-32.0); CALCIUM 8.2 MG/DL (8.5-10.1); CHLORIDE 100 MMOL/L (99-107); CREATININE 1.91 MG/DL (0.60-1.10); GLUCOSE 129 MG/DL (70-104); MAGNESIUM 2.2 MG/DL (1.5-2.4); PHOSPHORUS 3.6 MG/DL (2.3-4.5); POTASSIUM 3.9 MMOL/L (3.5-5.1); SODIUM 140 MMOL/L (135-145); TOTAL CARBON DIOXIDE 35.3 MMOL/L (24-32); eGFR 37 ML/MIN
--- NOTE | 2020-11-24 23:45 | NUR ---
reported to AYLA Marquez
[2020-11-25] MEDS: CLINDAMYCIN/D5W 900mg/50ml 50 ML IV SCH ×4 (00:20→23:41)
[2020-11-25] MEDS: penicillin G potassium inj 2,000,000 UNIT in normal saline 100ml IV soln 100 ML IV SCH ×4 (02:23→20:00)
[2020-11-25 03:58] LABS: HEMATOCRIT 45.5 % (42.0-52.0); HEMOGLOBIN 14.9 g/dl (14.0-17.9); MEAN CORPUSCULAR HEMOGLOBIN 30.6 PG (27.0-31.0)
[2020-11-25 04:00] LABS: MEAN CORPUSCULAR HGB CONC 32.8 g/dL (33.0-36.5); MEAN CORPUSCULAR VOLUME 93.5 FL (78-98); MEAN PLATELET VOLUME 8.1 FL (7.4-10.4); PLATELET COUNT 189 X10'3 (140-440); RED BLOOD COUNT 4.86 X10'6 (4.70-6.10); RED CELL DISTRIBUTION WIDTH 17.1 % (11.5-14.5); WHITE BLOOD COUNT 12.6 X10'3 (4.5-11.0)
[2020-11-25 04:10] LABS: ALANINE AMINOTRANSFERASE 34 U/L (12-78); ALBUMIN 2.4 G/DL (3.4-5.0); ALBUMIN/GLOBULIN RATIO 0.6 (1.1-1.5); ALKALINE PHOSPHATASE 123 IU/L (46-116); ANION GAP 3 (8-16); ASPARTATE AMINO TRANSFERASE 22 U/L (10-37); BILIRUBIN,TOTAL 0.9 MG/DL (0.1-1.0); BLOOD UREA NITROGEN 75 MG/DL (7-18); BUN/CREATININE RATIO 43.4 (5.4-32.0); CALCIUM 8.1 MG/DL (8.5-10.1); CHLORIDE 98 MMOL/L (99-107); CREATININE 1.73 MG/DL (0.60-1.10); GLUCOSE 136 MG/DL (70-104); MAGNESIUM 2.3 MG/DL (1.5-2.4); PHOSPHORUS 3.3 MG/DL (2.3-4.5); SODIUM 138 MMOL/L (135-145); TOTAL CARBON DIOXIDE 37.1 MMOL/L (24-32); TOTAL PROTEIN 6.2 G/DL (6.4-8.2); eGFR 41 ML/MIN
[2020-11-25 04:52] LABS: TOTAL CELLS COUNTED 100
[2020-11-25 04:53] LABS: ANISOCYTOSIS 1+; GIANT PLATELET FEW; LARGE PLATELETS FEW; PLATELET ESTIMATE NORMAL
[2020-11-25 04:54] LABS: TOXIC GRANULATION 1+
[2020-11-25 04:55] LABS: POLYCHROMASIA FEW
[2020-11-25 04:56] LABS: TARGET CELLS FEW
--- NOTE | 2020-11-25 05:04 | NUR ---
Pt had an 8 beat run of V-tach. He was asymptomatic, resting in bed watching TV. Called Tin Castano to report.
--- NOTE | 2020-11-25 06:31 | NUR ---
Patient in room PCU 3013. I have received report from Alma AGUILA and had the opportunity to ask questions and assume patient care.
--- NOTE | 2020-11-25 06:33 | NUR ---
Problems reprioritized. Patient report given, questions answered & plan of care reviewed with AYLA Beach and AYLA Victoria.
--- NOTE | 2020-11-25 06:39 | NUR ---
Patient in room PCU 3013. I have received report from AYLA Marquez and had the opportunity to ask questions and assume patient care. Patient asleep in bed and in no acute distress.
[2020-11-25 07:00] VITALS: BP 108/76
[2020-11-25] MEDS: potassium Cl 20 mEq SR tablet PO SCH (07:39)
[2020-11-25] MEDS: aspirin 81mg tablet.DR PO SCH (07:39)
[2020-11-25] MEDS: carvedilol 6.25mg tablet PO SCH ×2 (07:39→20:12)
[2020-11-25] MEDS: lactobacillus rhamnosus 10,000 MMU CELLS/CAPSULE PO SCH ×2 (07:39→20:12)
[2020-11-25] MEDS: spironolactone 25 MG tablet PO SCH (07:40)
[2020-11-25] MEDS: lisinopril 2.5mg tablet PO SCH (07:40)
[2020-11-25] MEDS: amiodarone 200mg tablet PO SCH ×2 (07:40→20:13)
[2020-11-25] MEDS: metolazone 2.5mg tablet PO SCH (07:43)
[2020-11-25] MEDS: K, MAG and/or Phos replacement - Verify level? MC SCH (08:00)
[2020-11-25] MEDS: HYDROcodone/acetaminophen 10/325mg tab PO PRN (09:20)
[2020-11-25 11:00] VITALS: BP 103/69
--- NOTE | 2020-11-25 14:05 | NUR ---
Reassessment: Pt presented with pleural effusion d/t CHF, sepsis, metabolic encephalopathy, and cellulitis. Pt last BM 11/20, pt may benefit from routine bowel care, d/w bed side nurse. Pt receiving regular/easy to chew diet, PO intake is 75-100% of meals, meeting nutrient needs. Will continue to monitor. Rec: 1. continue Easy to Chew 7 diet 2. routine bowel care 3. weight per rx Addendum: 11/25/20 at 1406 by Pranav Odell JUNIOR MECHANICAL ENGINEER RD Amended: Links added. Addendum: 11/25/20 at [address] RD agree with actuarial intern note
[2020-11-25 15:00] VITALS: BP 104/75
[2020-11-25] MEDS ORDERED: ondansetron 4mg rapidly disintigrating tab PO PRN (15:30)
--- NOTE | 2020-11-25 16:45 | NUR ---
[place] documentation: I have reviewed and agree with all interventions, assessments performed and documented by AYLA Beach.
--- NOTE | 2020-11-25 16:45 | NUR ---
[place] Medication Administration: For this medication-pass time frame, all medication were reviewed, dispensed, administered and documented per hospital policy by AYLA Beach.
[2020-11-25 18:00] VITALS: BP 107/73
--- NOTE | 2020-11-25 18:09 | NUR ---
Problems reprioritized. Patient report given, questions answered & plan of care reviewed with AYLA Marquez. Patient stable at [facility].
--- NOTE | 2020-11-25 18:21 | NUR ---
Patient in room PCU 3013. I have received report from AYLA Victoria and had the opportunity to ask questions and assume patient care.
[2020-11-25 22:00] VITALS: BP 100/82
[2020-11-25] MEDS: nystatin 15 GM powder TP SCH (23:41)
[2020-11-26] VITALS (7 sets, daily range): BP systolic 99–117; BP diastolic 71–89
[2020-11-26] MEDS: penicillin G potassium inj 2,000,000 UNIT in normal saline 100ml IV soln 100 ML IV SCH ×4 (02:46→19:37)
[2020-11-26 04:55] LABS: BASOPHILS % (AUTO) 0.2 % (0-1); EOSINOPHILS # (AUTO) 0.1 X10'3 (0-0.9); HEMATOCRIT 48.4 % (42.0-52.0); HEMOGLOBIN 15.8 g/dl (14.0-17.9); LYMPHOCYTES % (AUTO) 6.7 % (21-51); MEAN CORPUSCULAR HEMOGLOBIN 30.5 PG (27.0-31.0); MEAN CORPUSCULAR HGB CONC 32.7 g/dL (33.0-36.5); MEAN CORPUSCULAR VOLUME 93.2 FL (78-98); MEAN PLATELET VOLUME 7.8 FL (7.4-10.4); MONOCYTES # (AUTO) 0.7 X10'3 (0-0.9); MONOCYTES % (AUTO) 4.6 % (2-12); NEUTROPHILS # (AUTO) 12.5 X10'3 (1.8-7.7); NEUTROPHILS % (AUTO) 87.5 % (42-75); PLATELET COUNT 255 X10'3 (140-440); RED BLOOD COUNT 5.19 X10'6 (4.70-6.10); RED CELL DISTRIBUTION WIDTH 17.3 % (11.5-14.5); WHITE BLOOD COUNT 14.3 X10'3 (4.5-11.0)
[2020-11-26 05:07] LABS: ALANINE AMINOTRANSFERASE 31 U/L (12-78); ALBUMIN 2.2 G/DL (3.4-5.0); ALBUMIN/GLOBULIN RATIO 0.5 (1.1-1.5); ALKALINE PHOSPHATASE 139 IU/L (46-116); ANION GAP 3 (8-16); ASPARTATE AMINO TRANSFERASE 24 U/L (10-37); BLOOD UREA NITROGEN 67 MG/DL (7-18); BUN/CREATININE RATIO 52.8 (5.4-32.0); CALCIUM 8.6 MG/DL (8.5-10.1); CHLORIDE 97 MMOL/L (99-107); CREATININE 1.27 MG/DL (0.60-1.10); GLUCOSE 119 MG/DL (70-104); MAGNESIUM 2.3 MG/DL (1.5-2.4); PHOSPHORUS 3.4 MG/DL (2.3-4.5); POTASSIUM 4.7 MMOL/L (3.5-5.1); SODIUM 135 MMOL/L (135-145); TOTAL CARBON DIOXIDE 34.8 MMOL/L (24-32); TOTAL PROTEIN 6.4 G/DL (6.4-8.2); eGFR 59 ML/MIN
--- NOTE | 2020-11-26 06:15 | NUR ---
Patient in room PCU 3013. I have received report from AYLA Marquez and had the opportunity to ask questions and assume patient care.
--- NOTE | 2020-11-26 06:15 | NUR ---
Problems reprioritized. Patient report given, questions answered & plan of care reviewed with AYLA Victoria.
[2020-11-26] MEDS: potassium Cl 20 mEq SR tablet PO SCH (08:00)
[2020-11-26] MEDS: K, MAG and/or Phos replacement - Verify level? MC SCH (08:00)
[2020-11-26] MEDS: lisinopril 2.5mg tablet PO SCH (09:04)
[2020-11-26] MEDS: aspirin 81mg tablet.DR PO SCH (09:04)
[2020-11-26] MEDS: spironolactone 25 MG tablet PO SCH (09:04)
[2020-11-26] MEDS: amiodarone 200mg tablet PO SCH ×2 (09:04→19:37)
[2020-11-26] MEDS: metolazone 2.5mg tablet PO SCH (09:05)
[2020-11-26] MEDS: lactobacillus rhamnosus 10,000 MMU CELLS/CAPSULE PO SCH ×2 (09:05→19:37)
[2020-11-26] MEDS: carvedilol 6.25mg tablet PO SCH ×2 (09:09→19:41)
[2020-11-26] MEDS: CLINDAMYCIN/D5W 900mg/50ml 50 ML IV SCH ×3 (10:01→23:32)
[2020-11-26] MEDS: nystatin 15 GM powder TP SCH ×3 (10:08→19:44)
--- NOTE | 2020-11-26 17:43 | NUR ---
[place] Medication Administration: For this medication-pass time frame, all medication were reviewed, dispensed, administered and documented per hospital policy by AYLA Bains.
--- NOTE | 2020-11-26 17:43 | NUR ---
[place]rientee documentation: I have reviewed and agree with all interventions, assessments performed and documented by AYLA Bains.
--- NOTE | 2020-11-26 17:55 | NUR ---
Paged Dr. Garcia regarding a stool softener for patient who has not had a BM since admit. PAGER ID: [phone] MESSAGE: [phone]. Anton Matamoros. Can we order a stool softener for patient? Patient has not had a BM since 11/21. Thank you. Esme AGUILA x [phone]
--- NOTE | 2020-11-26 18:05 | NUR ---
Problems reprioritized. Patient report given, questions answered & plan of care reviewed with AYLA Burris.
[2020-11-26] MEDS: HYDROcodone/acetaminophen 10/325mg tab PO PRN (19:45)
--- NOTE | 2020-11-26 21:27 | NUR ---
Patient in room PCU 3013. I have received report from Nara AGUILA and had the opportunity to ask questions and assume patient care.
[2020-11-27] MEDS: penicillin G potassium inj 2,000,000 UNIT in normal saline 100ml IV soln 100 ML IV SCH ×3 (01:53→15:12)
[2020-11-27 02:00] VITALS: BP 98/69
[2020-11-27 02:19] LABS: BASOPHILS % (AUTO) 0.1 % (0-1); EOSINOPHILS # (AUTO) 0.1 X10'3 (0-0.9); EOSINOPHILS % (AUTO) 0.5 % (0-6); HEMATOCRIT 47.5 % (42.0-52.0); HEMOGLOBIN 15.7 g/dl (14.0-17.9); LYMPHOCYTES % (AUTO) 7.2 % (21-51); MEAN CORPUSCULAR HEMOGLOBIN 30.6 PG (27.0-31.0); MEAN CORPUSCULAR VOLUME 92.7 FL (78-98); MEAN PLATELET VOLUME 7.6 FL (7.4-10.4); MONOCYTES % (AUTO) 7.3 % (2-12); NEUTROPHILS % (AUTO) 84.9 % (42-75); PLATELET COUNT 343 X10'3 (140-440); RED BLOOD COUNT 5.13 X10'6 (4.70-6.10); RED CELL DISTRIBUTION WIDTH 17.1 % (11.5-14.5); WHITE BLOOD COUNT 14.1 X10'3 (4.5-11.0)
[2020-11-27 02:36] LABS: ALANINE AMINOTRANSFERASE 30 U/L (12-78); ALBUMIN 1.9 G/DL (3.4-5.0); ALBUMIN/GLOBULIN RATIO 0.5 (1.1-1.5); ALKALINE PHOSPHATASE 149 IU/L (46-116); ANION GAP 2 (8-16); ASPARTATE AMINO TRANSFERASE 30 U/L (10-37); BILIRUBIN,TOTAL 0.7 MG/DL (0.1-1.0); BLOOD UREA NITROGEN 67 MG/DL (7-18); BUN/CREATININE RATIO 51.9 (5.4-32.0); CALCIUM 8.1 MG/DL (8.5-10.1); CHLORIDE 100 MMOL/L (99-107); CREATININE 1.29 MG/DL (0.60-1.10); GLUCOSE 118 MG/DL (70-104); MAGNESIUM 2.4 MG/DL (1.5-2.4); PHOSPHORUS 4.4 MG/DL (2.3-4.5); POTASSIUM 4.9 MMOL/L (3.5-5.1); SODIUM 136 MMOL/L (135-145); TOTAL CARBON DIOXIDE 34.5 MMOL/L (24-32); TOTAL PROTEIN 5.9 G/DL (6.4-8.2); eGFR 58 ML/MIN
--- NOTE | 2020-11-27 06:46 | NUR ---
Problems reprioritized. Patient report given, questions answered & plan of care reviewed with Jailyn AGUILA.
[2020-11-27 07:00] VITALS: BP 110/77
[2020-11-27] MEDS: K, MAG and/or Phos replacement - Verify level? MC SCH (08:00)
[2020-11-27] MEDS: CLINDAMYCIN/D5W 900mg/50ml 50 ML IV SCH ×2 (08:35→16:32)
[2020-11-27] MEDS: spironolactone 25 MG tablet PO SCH (08:41)
[2020-11-27] MEDS: lactobacillus rhamnosus 10,000 MMU CELLS/CAPSULE PO SCH (08:41)
[2020-11-27] MEDS: potassium Cl 20 mEq SR tablet PO SCH (08:41)
[2020-11-27] MEDS: carvedilol 6.25mg tablet PO SCH (08:41)
[2020-11-27] MEDS: aspirin 81mg tablet.DR PO SCH (08:41)
[2020-11-27] MEDS: amiodarone 200mg tablet PO SCH (08:41)
[2020-11-27] MEDS: nystatin 15 GM powder TP SCH ×2 (08:42→15:12)
[2020-11-27] MEDS: lisinopril 2.5mg tablet PO SCH (08:42)
[2020-11-27 11:30] VITALS: BP 91/62
--- NOTE | 2020-11-27 14:47 | NUR ---
CM states pt. will be transferred to [facility], possibly during shift change however she has no p/u time at this time.
[2020-11-27 15:00] VITALS: BP 104/70
--- NOTE | 2020-11-27 18:09 | NUR ---
Pt. transfered to [facility]
== END 2020-11-27 18:15 | DRG 720 ==
LOC: ER 03:41 → ED HOLD 06:11 → CICU 2S 07:50 → PCU 3S 11-24 17:12
PROVIDERS: ADMIT Internal Medicine Critical Care Medicine; ATTEND Internal Medicine Critical Care Medicine
PROC: 0W993ZZ Drainage of Right Pleural Cavity, Percutaneous Approach (ICD-10-PCS; principal; 2020-11-21)
PROC: 0W9930Z Drainage of Right Pleural Cavity with Drainage Device, Percutaneous Approach (ICD-10-PCS; 2020-11-23)
DX: A41.9 Sepsis, unspecified organism (principal); G93.41 Metabolic encephalopathy; I13.0 Hypertensive heart and chronic kidney disease with heart failure and stage 1 through stage 4 chronic kidney disease, or unspecified chronic kidney disease; I50.23 Acute on chronic systolic (congestive) heart failure; J86.9 Pyothorax without fistula; R09.02 Hypoxemia; Z20.822 Contact with and (suspected) exposure to COVID-19; J44.9 Chronic obstructive pulmonary disease, unspecified; L03.115 Cellulitis of right lower limb; L03.116 Cellulitis of left lower limb; J91.8 Pleural effusion in other conditions classified elsewhere; B95.4 Other streptococcus as the cause of diseases classified elsewhere; I48.91 Unspecified atrial fibrillation; L97.819 Non-pressure chronic ulcer of other part of right lower leg with unspecified severity; Z60.2 Problems related to living alone; N17.9 Acute kidney failure, unspecified; N18.9 Chronic kidney disease, unspecified; R65.21 Severe sepsis with septic shock; F17.210 Nicotine dependence, cigarettes, uncomplicated; Z91.030 Bee allergy status; Z79.899 Other long term (current) drug therapy; Z79.82 Long term (current) use of aspirin; Z90.49 Acquired absence of other specified parts of digestive tract
CPT/HCPCS: 32555; 32557; 36415; 71045; 73700; 74176; 76937; 80053; 80069; 80202; 80305; 81001; 83605; 83615; 83735; 83880; 84100; 84145; 84157; 85007; 85025; 87040; 87070; 87077; 87081; 87186; 87426; 87635; 89051; 93005; 93306; 93308; 93925; 94667; 94760; 97112; 97161; 97530; 99285; G0378; J0696; J1200; J1720; J1940; J2540; J2543; J3370; J3490; J7030; J7050; P9047

== ENCOUNTER 2021-02-09 03:12 | Inpatient (IN) | payer MEDICAID ==
[~2021-02-09] VITALS: Ht 177.8 cm; Wt 123.2 kg
[~2021-02-09 03:12] MED LIST changes: -FURO40TA4 PO; -LISI2.5T2 PO; +LISI2.5T89 PO; +ZAR2.5T PO
[2021-02-09 03:41] LABS: BASOPHILS # (AUTO) 0.1 X10'3 (0-0.2); BASOPHILS % (AUTO) 0.7 % (0-1); EOSINOPHILS # (AUTO) 0.1 X10'3 (0-0.9); EOSINOPHILS % (AUTO) 1.4 % (0-6); HEMATOCRIT 36.4 % (42.0-52.0); HEMOGLOBIN 11.7 g/dl (14.0-17.9); LYMPHOCYTES # (AUTO) 1.4 X10'3 (1.1-4.8); LYMPHOCYTES % (AUTO) 17.7 % (21-51); MEAN CORPUSCULAR HEMOGLOBIN 28.8 PG (27.0-31.0); MEAN CORPUSCULAR HGB CONC 32.1 g/dL (33.0-36.5); MEAN CORPUSCULAR VOLUME 89.7 FL (78-98); MEAN PLATELET VOLUME 6.7 FL (7.4-10.4); MONOCYTES # (AUTO) 0.6 X10'3 (0-0.9); MONOCYTES % (AUTO) 7.5 % (2-12); NEUTROPHILS # (AUTO) 5.9 X10'3 (1.8-7.7); NEUTROPHILS % (AUTO) 72.7 % (42-75); PLATELET COUNT 347 X10'3 (140-440); RED BLOOD COUNT 4.05 X10'6 (4.70-6.10); RED CELL DISTRIBUTION WIDTH 17.5 % (11.5-14.5); WHITE BLOOD COUNT 8.2 X10'3 (4.5-11.0)
[2021-02-09 03:50] LABS: ALANINE AMINOTRANSFERASE 18 U/L (12-78); ALBUMIN 2.4 G/DL (3.4-5.0); ALBUMIN/GLOBULIN RATIO 0.5 (1.1-1.5); ALKALINE PHOSPHATASE 192 IU/L (46-116); ANION GAP 8 (8-16); ASPARTATE AMINO TRANSFERASE 30 U/L (10-37); BILIRUBIN,TOTAL 0.9 MG/DL (0.1-1.0); BLOOD UREA NITROGEN 23 MG/DL (7-18); BUN/CREATININE RATIO 15.8 (5.4-32.0); CALCIUM 9.2 MG/DL (8.5-10.1); CHLORIDE 103 MMOL/L (99-107); CREATININE 1.46 MG/DL (0.60-1.10); GLUCOSE 136 MG/DL (70-104); POTASSIUM 3.5 MMOL/L (3.5-5.1); SODIUM 137 MMOL/L (135-145); TOTAL CARBON DIOXIDE 26.2 MMOL/L (24-32); TOTAL PROTEIN 7.4 G/DL (6.4-8.2); eGFR 50 ML/MIN
[2021-02-09] MEDS ORDERED: nitroGLYCERIN 0.4mg SUBLingual tab SL PRN ×2 (05:05→08:05)
[2021-02-09] MEDS ORDERED: aspirin 81mg tab.chew PO ONE (05:05)
[2021-02-09] MEDS ORDERED: ALBU8HFA PO (05:32)
[2021-02-09] MEDS ORDERED: FURO-149 PO (05:32)
[2021-02-09] MEDS ORDERED: ZOLP5TAB8 PO (05:32)
--- NOTE | 2021-02-09 05:33 | NUR ---
PT HAS MULTIPLE MEDS ON HIS EXTERNAL LIST THAT HAVE BEEN FILLED RECENTLY. PT REPORTS HE HASNT BEEN TAKING THESE MEDS DESPITE HAVING THEM: COREG, CORDARONE, LISINOPRIL, ELIQUIS
[2021-02-09] MEDS ORDERED: CARV3.1246 PO (07:00)
[2021-02-09] MEDS ORDERED: LISI2.5T89 PO (07:00)
[2021-02-09] MEDS ORDERED: APIX5TAB3 PO (07:00)
[2021-02-09] MEDS ORDERED: AMIO200T61 PO (07:00)
[2021-02-09] MEDS ORDERED: magnesium Cl slow-release 64mg tablet PO PRN (08:05)
[2021-02-09] MEDS ORDERED: HYDROcodone/acetaminophen 10/325mg tab PO PRN (08:05)
[2021-02-09] MEDS ORDERED: magnesium 4gm in 100ml NS 100 ML IV PRN (08:05)
[2021-02-09] MEDS ORDERED: acetaminophen 325mg tablet PO PRN ×2 (08:05)
[2021-02-09] MEDS ORDERED: ondansetron/PF 4mg/2ml inj IV PRN (08:05)
[2021-02-09] MEDS ORDERED: furosemide 20 MG/2 ML vial IV ONE (08:05)
[2021-02-09] MEDS ORDERED: potassium Cl 20 mEq SR tablet PO PRN ×2 (08:05)
[2021-02-09] MEDS ORDERED: potassium Cl 40MEQ/1/2NS 520ml 520 ML IV PRN ×2 (08:05)
[2021-02-09] MEDS ORDERED: mag hydrox/Alum hydrox/simeth 30ml oral suspension PO PRN (08:05)
[2021-02-09] MEDS ORDERED: magnesium 2GM in 50ml NS 50 ML IV PRN (08:05)
[2021-02-09] MEDS ORDERED: bisacodyl 10mg suppository rectal RC PRN (08:05)
[2021-02-09] MEDS ORDERED: magnesium hydroxide 30ml (MOM) UD suspension PO PRN (08:05)
[2021-02-09] MEDS ORDERED: albuterol 2.5 MG/3 ML nebule NEB PRN (08:10)
--- NOTE | 2021-02-09 08:14 | NUR ---
Patient states he is currently homeless because he was kicked out of his home, now lives in a tent in the [facility]
[2021-02-09] MEDS ORDERED: iohexol 300mg/ml 100ml inj. ONE (08:26)
[2021-02-09 08:50] LABS: MAGNESIUM 1.9 MG/DL (1.5-2.4)
[2021-02-09 09:29] LABS: PARTIAL THROMBOPLASTIN TIME 29 SECONDS (22-32)
[2021-02-09 10:05] LABS: CLARITY,URINE TURBID (Clear); COLOR,URINE YELLOW (Yellow); GLUCOSE, URINE NEGATIVE (Neg); KETONES,URINE NEGATIVE (Neg); LEUKOCYTE ESTERASE ,URINE MODERATE (Neg); NITRITES, URINE NEGATIVE (Neg); OCCULT BLOOD,URINE LARGE (Neg); PROTEIN,URINE 100 mg/dl (Neg); UROBILINOGEN,URINE 0.2 E.U/dL (0.2-1.0)
[2021-02-09 10:12] LABS: UA COLLECTION TYPE CLN CATCH MIDSTREAM
[2021-02-09 10:13] LABS: SQUAMOUS EPITHELIAL CELL,UR FEW /LPF (FEW)
[2021-02-09 10:14] LABS: BACTERIA,URINE 2+ /HPF (Neg); WBC,URINE TNTC /HPF (0-4)
[2021-02-09 10:17] LABS: URINE AMPHETAMINE SCREEN POSITIVE (Neg); URINE BARBITUATE SCREEN NEGATIVE (Neg); URINE BENZODIAZEPINES SCREEN NEGATIVE (Neg); URINE CANNABINOID SCREEN NEGATIVE (Neg); URINE COCAINE SCREEN NEGATIVE (Neg); URINE METHADONE SCREEN NEGATIVE (Neg); URINE OPIATE SCREEN NEGATIVE (Neg); URINE PHENCYCLIDINE SCREEN NEGATIVE (Neg)
[2021-02-09] MEDS ORDERED: Potassium Cl inj 20 MEQ in normal saline 1000ml 990 ML IV SCH (10:20)
[2021-02-09] MEDS ORDERED: heparin 10,000 units/1 ML INJ IV PRN (10:20)
[2021-02-09] MEDS ORDERED: heparin 10,000 units/1 ML INJ IV ONE (10:20)
--- NOTE | 2021-02-09 10:23 | NUR ---
Patient in room ED 9. I have received report from Marely AGUILA and had the opportunity to ask questions and assume patient care.
[2021-02-09] MEDS: heparin 25,000 UNIT/250ml bag 250 ML IV SCH ×2 (10:54→17:44)
[2021-02-09 11:17] VITALS: BP 127/81
--- NOTE | 2021-02-09 11:26 | NUR ---
patient arrived to floor and was oriented to room and call light. Patient alert, oriented, and appropriate. vitals stable. business systems technician with patient currently
[2021-02-09 15:00] VITALS: BP 131/87
--- NOTE | 2021-02-09 18:13 | NUR ---
Problems reprioritized. Patient report given, questions answered & plan of care reviewed with Christie AGUILA. Patient in no acute distress
[2021-02-09 19:00] VITALS: BP 108/69
[2021-02-09] MEDS: carVEDilol 3.125mg tablet PO SCH (19:54)
[2021-02-09] MEDS: K and/or MAG REPLACEMENT MC SCH (20:00)
[2021-02-09] MEDS ORDERED: furosemide 20 MG/2 ML vial IV SCH (20:00)
[2021-02-09] MEDS ORDERED: heparin, porcine 5000 units/ml vial SQ SCH (20:00)
[2021-02-09] MEDS: potassium Cl 20mEq in NS 1,000 ML IV SCH (20:48)
[2021-02-09] MEDS ORDERED: temazepam 15mg capsule PO PRN (21:00)
[2021-02-09] MEDS: zolpidem 5mg tablet PO SCH (21:39)
[2021-02-09 23:00] VITALS: BP 126/67
[2021-02-09] MEDS: LORazepam 1 MG tablet PO PRN (23:16)
[2021-02-10 03:00] VITALS: BP 89/59
--- NOTE | 2021-02-10 06:55 | NUR ---
Patient in room PCU 3026. I have received report from Christie AGUILA and had the opportunity to ask questions and assume patient care. Pt prone in bed, back rising and falling evenly. Heparin running at 1900. BLL, SR x2, CL within reach.
[2021-02-10 07:00] VITALS: BP 119/88
[2021-02-10 07:35] LABS: BASOPHILS # (AUTO) 0.1 X10'3 (0-0.2); BASOPHILS % (AUTO) 0.9 % (0-1); EOSINOPHILS # (AUTO) 0.3 X10'3 (0-0.9); EOSINOPHILS % (AUTO) 4.4 % (0-6); HEMATOCRIT 40.2 % (42.0-52.0); HEMOGLOBIN 12.8 g/dl (14.0-17.9); LYMPHOCYTES # (AUTO) 1.8 X10'3 (1.1-4.8); MEAN CORPUSCULAR HEMOGLOBIN 28.6 PG (27.0-31.0); MEAN CORPUSCULAR HGB CONC 31.8 g/dL (33.0-36.5); MEAN CORPUSCULAR VOLUME 89.9 FL (78-98); MEAN PLATELET VOLUME 7.3 FL (7.4-10.4); MONOCYTES # (AUTO) 0.7 X10'3 (0-0.9); MONOCYTES % (AUTO) 9.6 % (2-12); NEUTROPHILS # (AUTO) 4.1 X10'3 (1.8-7.7); NEUTROPHILS % (AUTO) 59.1 % (42-75); PLATELET COUNT 353 X10'3 (140-440); RED BLOOD COUNT 4.48 X10'6 (4.70-6.10); RED CELL DISTRIBUTION WIDTH 17.5 % (11.5-14.5)
[2021-02-10] MEDS: levoTHYROXINE 25mcg tablet PO SCH (07:38)
[2021-02-10] MEDS: potassium Cl 20mEq in NS 1,000 ML IV SCH ×2 (07:40→15:40)
[2021-02-10] MEDS: aspirin 81mg tablet.DR PO SCH (07:48)
[2021-02-10] MEDS: lisinopril 2.5mg tablet PO SCH (07:48)
[2021-02-10] MEDS: amiodarone 200mg tablet PO SCH (07:48)
[2021-02-10] MEDS: potassium Cl 20 mEq SR tablet PO SCH (07:48)
[2021-02-10] MEDS: carVEDilol 3.125mg tablet PO SCH ×2 (07:48→21:15)
[2021-02-10 07:59] LABS: ALANINE AMINOTRANSFERASE 20 U/L (12-78); ALBUMIN 2.4 G/DL (3.4-5.0); ALBUMIN/GLOBULIN RATIO 0.5 (1.1-1.5); ALKALINE PHOSPHATASE 192 IU/L (46-116); ANION GAP 9 (8-16); ASPARTATE AMINO TRANSFERASE 29 U/L (10-37); BILIRUBIN,TOTAL 0.9 MG/DL (0.1-1.0); BLOOD UREA NITROGEN 25 MG/DL (7-18); BUN/CREATININE RATIO 16.2 (5.4-32.0); CALCIUM 8.6 MG/DL (8.5-10.1); CHLORIDE 101 MMOL/L (99-107); CHOL/HDL RATIO 3.4 (0.00-4.99); CHOLESTEROL 109 MG/DL (0-200); CREATININE 1.54 MG/DL (0.60-1.10); GLUCOSE 106 MG/DL (70-104); HDL CHOLESTEROL 32 MG/DL (35-60); LDL CHOLESTEROL 76 MG/DL (50-100); POTASSIUM 3.9 MMOL/L (3.5-5.1); SODIUM 138 MMOL/L (135-145); TOTAL PROTEIN 7.7 G/DL (6.4-8.2); TRIGLYCERIDES 35 MG/DL (20-135); eGFR 47 ML/MIN
[2021-02-10] MEDS: K and/or MAG REPLACEMENT MC SCH ×2 (08:00→20:00)
--- NOTE | 2021-02-10 08:14 | NUR ---
Critical Lab: PTT; Dr. Antonia Valenzuela. "RE: Anton Matamoros: RM: [id number]: Crit high PTT at 139. Heparin stopped. (was at 1900). PTT 64 at 0100. requested redraw by lab. -Estefania #[id number]"
--- NOTE | 2021-02-10 10:10 | NUR ---
Dr. Knight to unit/Lab contact Lab called regarding redraw of PTT, stating "no read" as results, explaining that no value could be established due to possible heparin antibodies developed, etc and that an additoinal imediate redraw would not yield a value. Dr. Knight standing by and acknowledged information. no new orders regarding Heparin as of now. Heparin will continue dosing per protocol. will hold x 2 hours and redraw at noon. Dr. Knight notified that pt anxious and frequently chaning position, occluding IV lines and that potassium intermittently being infused. Dr. Knight acknowledged this information without new orders. discussed pt's use of CPAP at home but per pt "i havent used it in a long time, i had to return it, there is black mold in my house and i dont have a cpap now." Dr. Knight acknowledged this and d/c'd prn Temazepam. New order for Kristine Covid test. pt sleeping soundly, prone on bed, back rising and falling evenly with respirations.
[2021-02-10 11:00] VITALS: BP 107/81
[2021-02-10 12:21] LABS: PARTIAL THROMBOPLASTIN TIME 36 SECONDS (22-32)
[2021-02-10] MEDS: heparin 25,000 UNIT/250ml bag 250 ML IV SCH (13:39)
[2021-02-10] MEDS ORDERED: ondansetron 4mg rapidly disintigrating tab PO PRN (13:45)
[2021-02-10 15:00] VITALS: BP 99/69
[2021-02-10] MEDS: HYDROcodone/acetaminophen 5mg/325mg tablet PO PRN (15:23)
[2021-02-10 18:00] VITALS: BP 94/76
--- NOTE | 2021-02-10 18:09 | NUR ---
Problems reprioritized. Patient report given, questions answered & plan of care reviewed with Dave RN. Pt in bed, leaning over table resting. chest rising and falling evenly. iv's patent. no s/sx acute distress.
[2021-02-10] MEDS: zolpidem 5mg tablet PO SCH (21:15)
[2021-02-10] MEDS: metoclopramide 5 mg/ml inj IV PRN (21:15)
--- NOTE | 2021-02-10 21:31 | NUR ---
MESSAGE: 3026B DVT PTT CAME BACK TWICE NO NUMERICAL VALUE. HEPARIN CURRENTLY AT 2100U/HR. AYLA PIPER [phone]
[2021-02-10 22:00] VITALS: BP 99/59
--- NOTE | 2021-02-10 22:18 | NUR ---
MESSAGE: 3026-B, DVT PPT came back no numerical value x2, lab notified RN, happened during day shift as well, heparin drip was stopped at that time. AYLA PIPER [phone] please contact!
[2021-02-11] MEDS: heparin 25,000 UNIT/250ml bag 250 ML IV SCH ×2 (01:42→20:07)
[2021-02-11 02:00] VITALS: BP 99/60
[2021-02-11] MEDS: potassium Cl 20mEq in NS 1,000 ML IV SCH ×3 (04:47→21:43)
[2021-02-11 04:48] LABS: ALANINE AMINOTRANSFERASE 24 U/L (12-78); ALBUMIN 2.5 G/DL (3.4-5.0); ALBUMIN/GLOBULIN RATIO 0.5 (1.1-1.5); ALKALINE PHOSPHATASE 202 IU/L (46-116); ANION GAP 8 (8-16); ASPARTATE AMINO TRANSFERASE 32 U/L (10-37); BILIRUBIN,TOTAL 0.7 MG/DL (0.1-1.0); BLOOD UREA NITROGEN 34 MG/DL (7-18); BUN/CREATININE RATIO 22.5 (5.4-32.0); CHLORIDE 102 MMOL/L (99-107); CREATININE 1.51 MG/DL (0.60-1.10); GLUCOSE 96 MG/DL (70-104); POTASSIUM 4.6 MMOL/L (3.5-5.1); SODIUM 137 MMOL/L (135-145); TOTAL CARBON DIOXIDE 27.2 MMOL/L (24-32); TOTAL PROTEIN 7.9 G/DL (6.4-8.2); eGFR 48 ML/MIN
[2021-02-11 04:56] LABS: BASOPHILS # (AUTO) 0.1 X10'3 (0-0.2); BASOPHILS % (AUTO) 0.7 % (0-1); EOSINOPHILS # (AUTO) 0.3 X10'3 (0-0.9); EOSINOPHILS % (AUTO) 3.9 % (0-6); HEMOGLOBIN 12.6 g/dl (14.0-17.9); LYMPHOCYTES # (AUTO) 2.2 X10'3 (1.1-4.8); LYMPHOCYTES % (AUTO) 26.5 % (21-51); MEAN CORPUSCULAR HEMOGLOBIN 28.5 PG (27.0-31.0); MEAN CORPUSCULAR HGB CONC 31.6 g/dL (33.0-36.5); MEAN CORPUSCULAR VOLUME 90.4 FL (78-98); MEAN PLATELET VOLUME 7.4 FL (7.4-10.4); MONOCYTES # (AUTO) 0.7 X10'3 (0-0.9); MONOCYTES % (AUTO) 8.4 % (2-12); NEUTROPHILS # (AUTO) 4.9 X10'3 (1.8-7.7); NEUTROPHILS % (AUTO) 60.5 % (42-75); PLATELET COUNT 408 X10'3 (140-440); RED BLOOD COUNT 4.42 X10'6 (4.70-6.10); RED CELL DISTRIBUTION WIDTH 17.7 % (11.5-14.5); WHITE BLOOD COUNT 8.2 X10'3 (4.5-11.0)
--- NOTE | 2021-02-11 06:00 | NUR ---
PT AWAKE, VERY ANXIOUS THAT HE IS GOING TO , REASSERED PT, RECEIVED REPORT FROM FELIZ RN, UPDATED THE BOARD
--- NOTE | 2021-02-11 06:30 | NUR ---
GAVE REPORT TO [facility] RN DAY SHIFT.
[2021-02-11] MEDS: K and/or MAG REPLACEMENT MC SCH ×2 (07:29→19:53)
[2021-02-11] MEDS: potassium Cl 20 mEq SR tablet PO SCH (07:30)
[2021-02-11 07:43] VITALS: BP 121/89
[2021-02-11] MEDS: LORazepam 1 MG tablet PO PRN ×2 (08:34→12:17)
[2021-02-11] MEDS: amiodarone 200mg tablet PO SCH (08:34)
[2021-02-11] MEDS: levoTHYROXINE 25mcg tablet PO SCH (08:34)
[2021-02-11] MEDS: aspirin 81mg tablet.DR PO SCH (08:34)
[2021-02-11] MEDS: lisinopril 2.5mg tablet PO SCH (08:35)
[2021-02-11] MEDS: carVEDilol 3.125mg tablet PO SCH ×2 (08:35→19:51)
--- NOTE | 2021-02-11 09:50 | NUR ---
PAGER ID: [phone] MESSAGE: [phone] SELINA CROWDER HAS A 2 10 BEATS OF VTACH IN 7MIN. K IS 4.6, MAG IS 2.0. NO NEED TO CALL JUST WANTED YOU TO BE AWARE.
[2021-02-11 11:16] VITALS: BP 127/87
[2021-02-11] MEDS: ampicillin inj 2 GM in normal saline 100ml IV soln 100 ML IV SCH ×2 (13:38→19:49)
[2021-02-11 16:04] VITALS: BP 143/71
[2021-02-11] MEDS: HYDROcodone/acetaminophen 5mg/325mg tablet PO PRN (19:50)
[2021-02-11] MEDS: zolpidem 5mg tablet PO SCH (19:51)
[2021-02-11 22:00] VITALS: BP 120/73
[2021-02-11] MEDS: metoclopramide 5 mg/ml inj IV PRN (23:15)
[2021-02-12] MEDS: ampicillin inj 2 GM in normal saline 100ml IV soln 100 ML IV SCH ×5 (01:05→23:53)
[2021-02-12] MEDS: HYDROcodone/acetaminophen 5mg/325mg tablet PO PRN ×2 (01:05→16:26)
[2021-02-12 02:00] VITALS: BP 103/58
[2021-02-12 04:31] LABS: BASOPHILS # (AUTO) 0.1 X10'3 (0-0.2); BASOPHILS % (AUTO) 1.1 % (0-1); EOSINOPHILS # (AUTO) 0.3 X10'3 (0-0.9); EOSINOPHILS % (AUTO) 3.3 % (0-6); HEMATOCRIT 43.7 % (42.0-52.0); HEMOGLOBIN 13.6 g/dl (14.0-17.9); LYMPHOCYTES # (AUTO) 1.8 X10'3 (1.1-4.8); LYMPHOCYTES % (AUTO) 23.1 % (21-51); MEAN CORPUSCULAR HEMOGLOBIN 28.4 PG (27.0-31.0); MEAN CORPUSCULAR HGB CONC 31.1 g/dL (33.0-36.5); MEAN CORPUSCULAR VOLUME 91.1 FL (78-98); MEAN PLATELET VOLUME 7.2 FL (7.4-10.4); MONOCYTES # (AUTO) 0.5 X10'3 (0-0.9); MONOCYTES % (AUTO) 6.8 % (2-12); NEUTROPHILS # (AUTO) 5.1 X10'3 (1.8-7.7); NEUTROPHILS % (AUTO) 65.7 % (42-75); PLATELET COUNT 452 X10'3 (140-440); RED BLOOD COUNT 4.79 X10'6 (4.70-6.10); WHITE BLOOD COUNT 7.8 X10'3 (4.5-11.0)
--- NOTE | 2021-02-12 04:35 | NUR ---
MESSAGE: [id number] LAKESHA MARKS WOULD LIKE CPAP, DIFFICULTY SLEEPING, RT EVAL PLEASE IF POSSIBLE. THANK YOU! FELIZ RN [phone]
[2021-02-12 04:54] LABS: ALANINE AMINOTRANSFERASE 27 U/L (12-78); ALBUMIN 2.9 G/DL (3.4-5.0); ALBUMIN/GLOBULIN RATIO 0.5 (1.1-1.5); ALKALINE PHOSPHATASE 210 IU/L (46-116); ANION GAP 8 (8-16); ASPARTATE AMINO TRANSFERASE 35 U/L (10-37); BILIRUBIN,TOTAL 0.7 MG/DL (0.1-1.0); BLOOD UREA NITROGEN 37 MG/DL (7-18); BUN/CREATININE RATIO 20.9 (5.4-32.0); CALCIUM 8.2 MG/DL (8.5-10.1); CHLORIDE 99 MMOL/L (99-107); CREATININE 1.77 MG/DL (0.60-1.10); GLUCOSE 108 MG/DL (70-104); SODIUM 134 MMOL/L (135-145); TOTAL CARBON DIOXIDE 26.6 MMOL/L (24-32); TOTAL PROTEIN 8.9 G/DL (6.4-8.2); eGFR 40 ML/MIN
[2021-02-12] MEDS: normal saline 1000ml 1,000 ML IV SCH ×2 (05:11→19:42)
--- NOTE | 2021-02-12 05:16 | NUR ---
PT RELAXING IN BED WITH CALL LIGHT WITHIN REACH AND BED LOCKED IN LOWEST POSITION.
[2021-02-12 06:00] VITALS: BP_SYST 110; BP_SYST 175; BP_DIAS 100; BP_DIAS 65
--- NOTE | 2021-02-12 06:15 | NUR ---
Patient in room PCU 3010. I have received report from Dave AGUILA and had the opportunity to ask questions and assume patient care.
[2021-02-12] MEDS: aspirin 81mg tablet.DR PO SCH (07:11)
[2021-02-12] MEDS: levoTHYROXINE 25mcg tablet PO SCH (07:11)
[2021-02-12] MEDS: amiodarone 200mg tablet PO SCH (07:11)
[2021-02-12] MEDS: carVEDilol 3.125mg tablet PO SCH ×2 (07:11→19:34)
[2021-02-12] MEDS: lisinopril 2.5mg tablet PO SCH (07:24)
[2021-02-12] MEDS: potassium Cl 20 mEq SR tablet PO SCH (07:26)
[2021-02-12] MEDS: K and/or MAG REPLACEMENT MC SCH ×2 (08:00→19:40)
[2021-02-12 10:45] LABS: POTASSIUM 5.5 MMOL/L (3.5-5.1)
[2021-02-12 11:00] VITALS: BP 90/61
[2021-02-12] MEDS: heparin 25,000 UNIT/250ml bag 250 ML IV SCH (13:20)
[2021-02-12 15:00] VITALS: BP 108/81
[2021-02-12 18:00] VITALS: BP 94/59
--- NOTE | 2021-02-12 18:15 | NUR ---
Problems reprioritized. Patient report given, questions answered & plan of care reviewed with Dave AGUILA.
[2021-02-12] MEDS: lactobacillus rhamnosus 10,000 MMU CELLS/CAPSULE PO SCH (19:33)
[2021-02-12] MEDS: metoclopramide 5 mg/ml inj IV PRN (19:33)
[2021-02-12] MEDS: enoxaparin 80mg/0.8ml syringe SUBCUT SCH (19:33)
[2021-02-12] MEDS: enoxaparin 30mg/0.3ml syringe SUBCUT SCH (19:33)
[2021-02-12] MEDS: zolpidem 5mg tablet PO SCH (19:50)
[2021-02-12] MEDS ORDERED: warfarin 5mg tablet PO ONE (21:00)
[2021-02-12 22:00] VITALS: BP 112/84
[2021-02-13 02:00] VITALS: BP 94/62
[2021-02-13] MEDS: normal saline 1000ml 1,000 ML IV SCH ×3 (04:20→21:37)
--- NOTE | 2021-02-13 05:45 | NUR ---
PT RESTING IN BED COMFORTABLY WITH BIPAP ON OVERNIGHT. PT BED LOCKED IN LOWEST POSITION WITH CALL LIGHT WITHIN REACH, AYLA LLAMAS RESUMING CARE OF PT.
[2021-02-13 06:00] VITALS: BP 125/73
--- NOTE | 2021-02-13 06:15 | NUR ---
Patient in room PCU 3010. I have received report from Dave AGUILA and had the opportunity to ask questions and assume patient care.
[2021-02-13] MEDS: potassium Cl 20 mEq SR tablet PO SCH (08:00)
[2021-02-13] MEDS: K and/or MAG REPLACEMENT MC SCH ×2 (08:00→20:00)
[2021-02-13] MEDS: aspirin 81mg tablet.DR PO SCH (08:08)
[2021-02-13] MEDS: ampicillin inj 2 GM in normal saline 100ml IV soln 100 ML IV SCH ×3 (08:08→21:26)
[2021-02-13] MEDS: lactobacillus rhamnosus 10,000 MMU CELLS/CAPSULE PO SCH ×2 (08:08→21:25)
[2021-02-13] MEDS: levoTHYROXINE 25mcg tablet PO SCH (08:08)
[2021-02-13] MEDS: lisinopril 2.5mg tablet PO SCH (08:08)
[2021-02-13] MEDS: amiodarone 200mg tablet PO SCH (08:09)
[2021-02-13] MEDS: carVEDilol 3.125mg tablet PO SCH ×2 (08:09→20:00)
[2021-02-13] MEDS: enoxaparin 30mg/0.3ml syringe SUBCUT SCH ×2 (08:10→21:25)
[2021-02-13] MEDS: enoxaparin 80mg/0.8ml syringe SUBCUT SCH ×2 (08:10→21:25)
[2021-02-13 11:00] VITALS: BP 114/82
[2021-02-13 11:22] LABS: BASOPHILS % (AUTO) 0.5 % (0-1); EOSINOPHILS # (AUTO) 0.2 X10'3 (0-0.9); EOSINOPHILS % (AUTO) 2.3 % (0-6); HEMATOCRIT 38.1 % (42.0-52.0); HEMOGLOBIN 11.9 g/dl (14.0-17.9); LYMPHOCYTES # (AUTO) 1.2 X10'3 (1.1-4.8); LYMPHOCYTES % (AUTO) 15.2 % (21-51); MEAN CORPUSCULAR HEMOGLOBIN 28.3 PG (27.0-31.0); MEAN CORPUSCULAR HGB CONC 31.3 g/dL (33.0-36.5); MEAN CORPUSCULAR VOLUME 90.4 FL (78-98); MEAN PLATELET VOLUME 7.1 FL (7.4-10.4); MONOCYTES # (AUTO) 0.7 X10'3 (0-0.9); MONOCYTES % (AUTO) 8.3 % (2-12); NEUTROPHILS # (AUTO) 5.9 X10'3 (1.8-7.7); NEUTROPHILS % (AUTO) 73.7 % (42-75); PLATELET COUNT 470 X10'3 (140-440); RED BLOOD COUNT 4.22 X10'6 (4.70-6.10); RED CELL DISTRIBUTION WIDTH 17.5 % (11.5-14.5)
[2021-02-13 11:32] LABS: ALANINE AMINOTRANSFERASE 19 U/L (12-78); ALBUMIN 2.3 G/DL (3.4-5.0); ALBUMIN/GLOBULIN RATIO 0.5 (1.1-1.5); ALKALINE PHOSPHATASE 173 IU/L (46-116); ANION GAP 4 (8-16); ASPARTATE AMINO TRANSFERASE 30 U/L (10-37); BILIRUBIN,TOTAL 0.6 MG/DL (0.1-1.0); BLOOD UREA NITROGEN 38 MG/DL (7-18); BUN/CREATININE RATIO 22.9 (5.4-32.0); CALCIUM 7.6 MG/DL (8.5-10.1); CHLORIDE 101 MMOL/L (99-107); CREATININE 1.66 MG/DL (0.60-1.10); GLUCOSE 125 MG/DL (70-104); POTASSIUM 5.1 MMOL/L (3.5-5.1); SODIUM 134 MMOL/L (135-145); TOTAL CARBON DIOXIDE 28.9 MMOL/L (24-32); TOTAL PROTEIN 7.2 G/DL (6.4-8.2); eGFR 43 ML/MIN
[2021-02-13 15:00] VITALS: BP 116/84
[2021-02-13 18:00] VITALS: BP 88/54
--- NOTE | 2021-02-13 18:15 | NUR ---
Problems reprioritized. Patient report given, questions answered & plan of care reviewed with Dave AGUILA.
[2021-02-13] MEDS ORDERED: warfarin 3mg tablet PO ONE (21:00)
[2021-02-13] MEDS: zolpidem 5mg tablet PO SCH (21:25)
[2021-02-13] MEDS: HYDROcodone/acetaminophen 5mg/325mg tablet PO PRN (21:36)
[2021-02-13 22:00] VITALS: BP 88/54
[2021-02-14] MEDS: ampicillin inj 2 GM in normal saline 100ml IV soln 100 ML IV SCH ×5 (00:57→23:04)
[2021-02-14 01:10] VITALS: BP 101/59
[2021-02-14 06:49] LABS: BASOPHILS % (AUTO) 0.5 % (0-1); EOSINOPHILS # (AUTO) 0.2 X10'3 (0-0.9); EOSINOPHILS % (AUTO) 2.1 % (0-6); HEMATOCRIT 38.7 % (42.0-52.0); HEMOGLOBIN 12.4 g/dl (14.0-17.9); LYMPHOCYTES # (AUTO) 1.8 X10'3 (1.1-4.8); MEAN CORPUSCULAR HEMOGLOBIN 28.4 PG (27.0-31.0); MEAN CORPUSCULAR HGB CONC 31.9 g/dL (33.0-36.5); MEAN PLATELET VOLUME 7.1 FL (7.4-10.4); MONOCYTES # (AUTO) 0.7 X10'3 (0-0.9); NEUTROPHILS # (AUTO) 5.3 X10'3 (1.8-7.7); NEUTROPHILS % (AUTO) 66.4 % (42-75); PLATELET COUNT 501 X10'3 (140-440); RED BLOOD COUNT 4.34 X10'6 (4.70-6.10); RED CELL DISTRIBUTION WIDTH 17.7 % (11.5-14.5); WHITE BLOOD COUNT 8.1 X10'3 (4.5-11.0)
[2021-02-14 07:00] VITALS: BP 122/75
[2021-02-14 07:09] LABS: ALANINE AMINOTRANSFERASE 20 U/L (12-78); ALBUMIN 2.2 G/DL (3.4-5.0); ALBUMIN/GLOBULIN RATIO 0.5 (1.1-1.5); ALKALINE PHOSPHATASE 166 IU/L (46-116); ANION GAP 6 (8-16); ASPARTATE AMINO TRANSFERASE 26 U/L (10-37); BILIRUBIN,TOTAL 0.6 MG/DL (0.1-1.0); BLOOD UREA NITROGEN 34 MG/DL (7-18); BUN/CREATININE RATIO 23.3 (5.4-32.0); CALCIUM 8.1 MG/DL (8.5-10.1); CHLORIDE 102 MMOL/L (99-107); CREATININE 1.46 MG/DL (0.60-1.10); GLUCOSE 98 MG/DL (70-104); POTASSIUM 4.7 MMOL/L (3.5-5.1); SODIUM 135 MMOL/L (135-145); TOTAL CARBON DIOXIDE 27.4 MMOL/L (24-32); eGFR 50 ML/MIN
[2021-02-14] MEDS: K and/or MAG REPLACEMENT MC SCH ×2 (08:00→19:53)
[2021-02-14] MEDS: levoTHYROXINE 25mcg tablet PO SCH (09:19)
[2021-02-14] MEDS: lisinopril 2.5mg tablet PO SCH (09:20)
[2021-02-14] MEDS: amiodarone 200mg tablet PO SCH (09:20)
[2021-02-14] MEDS: carVEDilol 3.125mg tablet PO SCH ×2 (09:20→19:41)
[2021-02-14] MEDS: aspirin 81mg tablet.DR PO SCH (09:20)
[2021-02-14] MEDS: potassium Cl 20 mEq SR tablet PO SCH (09:20)
[2021-02-14] MEDS: enoxaparin 30mg/0.3ml syringe SUBCUT SCH ×2 (09:21→19:55)
[2021-02-14] MEDS: lactobacillus rhamnosus 10,000 MMU CELLS/CAPSULE PO SCH ×2 (09:22→19:41)
[2021-02-14] MEDS: enoxaparin 80mg/0.8ml syringe SUBCUT SCH ×2 (09:26→19:55)
[2021-02-14] MEDS: normal saline 1000ml 1,000 ML IV SCH ×2 (09:58→19:53)
[2021-02-14 11:00] VITALS: BP 124/64
--- NOTE | 2021-02-14 13:32 | NUR ---
Initial: Pt admit DX SOB, PE, meth abuse, R pleural effusion, and CKD per EMR. PO ~50% avg heart healthy/2L fluid-restricted diet partially meeting needs. Noted on bipap/cpap at times possibly impacting PO hx as well. Ensure pudding TIDWM added for additional kcals/protein on fluid restriction. LBM 02/12. Will continue to monitor for additional protein/kcal needs this admit. Rec: 1. continue heart healthy/2L fluid-restricted diet per MD; encourage PO 2. ensure pudding TIDWM for additional protein/kcals 3. routine bowel care 4. weekly wts Addendum: 02/14/21 at [address] Amended: Links added.
[2021-02-14 15:00] VITALS: BP 129/71
--- NOTE | 2021-02-14 17:44 | NUR ---
Patient found with signifigant right sided chest swelling and SOB. Dr. Knight notified and stat CT ordered.
[2021-02-14 18:00] VITALS: BP 110/61
--- NOTE | 2021-02-14 18:11 | NUR ---
Problems reprioritized. Patient report given, questions answered & plan of care reviewed with Dave RN. Patient in no acute distress.
[2021-02-14] MEDS: zolpidem 5mg tablet PO SCH (19:41)
[2021-02-14] MEDS: LORazepam 1 MG tablet PO PRN (19:45)
[2021-02-14] MEDS ORDERED: warfarin 3mg tablet PO ONE (21:00)
[2021-02-14 22:00] VITALS: BP 112/64
[2021-02-15 02:00] VITALS: BP 98/66
[2021-02-15] MEDS: normal saline 1000ml 1,000 ML IV SCH (05:58)
[2021-02-15 06:00] VITALS: BP 132/99
--- NOTE | 2021-02-15 06:33 | NUR ---
Patient in room PCU 3010. I have received report from Dave AGUILA and had the opportunity to ask questions and assume patient care.
[2021-02-15 07:16] LABS: BASOPHILS % (AUTO) 0.6 % (0-1); EOSINOPHILS # (AUTO) 0.1 X10'3 (0-0.9); EOSINOPHILS % (AUTO) 1.3 % (0-6); HEMATOCRIT 39.7 % (42.0-52.0); HEMOGLOBIN 12.4 g/dl (14.0-17.9); LYMPHOCYTES # (AUTO) 1.8 X10'3 (1.1-4.8); LYMPHOCYTES % (AUTO) 25.1 % (21-51); MEAN CORPUSCULAR HEMOGLOBIN 28.1 PG (27.0-31.0); MEAN CORPUSCULAR HGB CONC 31.3 g/dL (33.0-36.5); MEAN CORPUSCULAR VOLUME 89.7 FL (78-98); MONOCYTES # (AUTO) 0.7 X10'3 (0-0.9); NEUTROPHILS # (AUTO) 4.7 X10'3 (1.8-7.7); PLATELET COUNT 509 X10'3 (140-440); RED BLOOD COUNT 4.43 X10'6 (4.70-6.10); RED CELL DISTRIBUTION WIDTH 17.6 % (11.5-14.5); WHITE BLOOD COUNT 7.3 X10'3 (4.5-11.0)
[2021-02-15 07:55] LABS: ALBUMIN 2.3 G/DL (3.4-5.0); ANION GAP 7 (8-16); BLOOD UREA NITROGEN 28 MG/DL (7-18); BUN/CREATININE RATIO 22.2 (5.4-32.0); CHLORIDE 103 MMOL/L (99-107); CREATININE 1.26 MG/DL (0.60-1.10); GLUCOSE 95 MG/DL (70-104); POTASSIUM 4.9 MMOL/L (3.5-5.1); SODIUM 136 MMOL/L (135-145); TOTAL CARBON DIOXIDE 26.1 MMOL/L (24-32); eGFR 59 ML/MIN
[2021-02-15] MEDS: enoxaparin 30mg/0.3ml syringe SUBCUT SCH ×2 (07:58→20:48)
[2021-02-15] MEDS: aspirin 81mg tablet.DR PO SCH (07:59)
[2021-02-15] MEDS: amiodarone 200mg tablet PO SCH (07:59)
[2021-02-15] MEDS: lisinopril 2.5mg tablet PO SCH (07:59)
[2021-02-15] MEDS: enoxaparin 80mg/0.8ml syringe SUBCUT SCH ×2 (07:59→20:47)
[2021-02-15] MEDS: levoTHYROXINE 25mcg tablet PO SCH (08:00)
[2021-02-15] MEDS: potassium Cl 20 mEq SR tablet PO SCH (08:00)
[2021-02-15] MEDS: ampicillin inj 2 GM in normal saline 100ml IV soln 100 ML IV SCH ×3 (08:00→20:48)
[2021-02-15] MEDS: lactobacillus rhamnosus 10,000 MMU CELLS/CAPSULE PO SCH ×2 (08:00→20:49)
[2021-02-15] MEDS: K and/or MAG REPLACEMENT MC SCH ×2 (08:00→20:00)
[2021-02-15] MEDS: carVEDilol 3.125mg tablet PO SCH ×2 (08:00→20:49)
[2021-02-15] MEDS: LORazepam 1 MG tablet PO PRN ×3 (08:01→20:49)
[2021-02-15] MEDS ORDERED: furosemide 40mg/4ml inj IV ONE (08:40)
[2021-02-15 09:27] LABS: ABG BASE EXCESS -2.5 mmol/L (-2.0-2.0); ABG HCO3 23.7 mmol/L (22.0-26.0); ABG OXYGEN SATURATION 97.4 % (94-97); ABG PCO2 (T) 46.7 mmHg (35.0-48.0); ABG PO2 (T) 98.1 mmHg (75.0-100.0); ALLEN'S TEST POSITIVE; FCOHb 0.4 % (0.0-3.9); FMetHb 0.3 % (0.0-1.5); FO2Hb 96.7 % (94-97); RESPIRATORY RATE 12 b/min; TIDAL VOLUME 659 mL; TOTAL HEMOGLOBIN 12.7 G/dl (14.0-18.0)
[2021-02-15 11:00] VITALS: BP 126/76
[2021-02-15 15:00] VITALS: BP 142/77
[2021-02-15 18:00] VITALS: BP 132/92
--- NOTE | 2021-02-15 18:25 | NUR ---
Patient in room PCU 3010. I have received report from AYLA Green and had the opportunity to ask questions and assume patient care.
--- NOTE | 2021-02-15 18:31 | NUR ---
Problems reprioritized. Patient report given, questions answered & plan of care reviewed with Alma AGUILA.
[2021-02-15] MEDS: furosemide 40mg/4ml inj IV SCH (20:50)
[2021-02-15] MEDS: zolpidem 5mg tablet PO SCH (20:53)
[2021-02-15] MEDS ORDERED: warfarin 5mg tablet PO ONE (21:00)
[2021-02-15 22:00] VITALS: BP 95/54
[2021-02-16] MEDS: ampicillin inj 2 GM in normal saline 100ml IV soln 100 ML IV SCH ×4 (01:49→20:18)
[2021-02-16 02:00] VITALS: BP 96/58
--- NOTE | 2021-02-16 06:08 | NUR ---
Problems reprioritized. Patient report given, questions answered & plan of care reviewed with AYLA Green.
[2021-02-16 07:00] VITALS: BP 98/52
[2021-02-16] MEDS: aspirin 81mg tablet.DR PO SCH (07:52)
[2021-02-16] MEDS: lisinopril 2.5mg tablet PO SCH (07:52)
[2021-02-16] MEDS: levoTHYROXINE 25mcg tablet PO SCH (07:53)
[2021-02-16] MEDS: carVEDilol 3.125mg tablet PO SCH ×2 (07:53→20:18)
[2021-02-16] MEDS: lactobacillus rhamnosus 10,000 MMU CELLS/CAPSULE PO SCH ×2 (07:53→20:18)
[2021-02-16] MEDS: potassium Cl 20 mEq SR tablet PO SCH (07:53)
[2021-02-16] MEDS: amiodarone 200mg tablet PO SCH (07:53)
[2021-02-16] MEDS: K and/or MAG REPLACEMENT MC SCH ×2 (08:00→20:00)
[2021-02-16 08:06] LABS: BASOPHILS % (AUTO) 0.6 % (0-1); EOSINOPHILS # (AUTO) 0.1 X10'3 (0-0.9); EOSINOPHILS % (AUTO) 1.9 % (0-6); LYMPHOCYTES # (AUTO) 1.8 X10'3 (1.1-4.8); LYMPHOCYTES % (AUTO) 23.2 % (21-51); MEAN PLATELET VOLUME 7.1 FL (7.4-10.4); MONOCYTES # (AUTO) 0.8 X10'3 (0-0.9); MONOCYTES % (AUTO) 10.1 % (2-12); NEUTROPHILS # (AUTO) 4.9 X10'3 (1.8-7.7); NEUTROPHILS % (AUTO) 64.2 % (42-75); PLATELET COUNT 434 X10'3 (140-440); WHITE BLOOD COUNT 7.7 X10'3 (4.5-11.0)
[2021-02-16 08:19] LABS: HEMATOCRIT 38.1 % (42.0-52.0); HEMOGLOBIN 12.1 g/dl (14.0-17.9); MEAN CORPUSCULAR HEMOGLOBIN 28.8 PG (27.0-31.0); MEAN CORPUSCULAR HGB CONC 31.9 g/dL (33.0-36.5); MEAN CORPUSCULAR VOLUME 90.4 FL (78-98); RED BLOOD COUNT 4.21 X10'6 (4.70-6.10)
[2021-02-16 08:20] LABS: RED CELL DISTRIBUTION WIDTH 17.2 % (11.5-14.5)
[2021-02-16 08:28] LABS: ALANINE AMINOTRANSFERASE 18 U/L (12-78); ALBUMIN 2.2 G/DL (3.4-5.0); ALBUMIN/GLOBULIN RATIO 0.4 (1.1-1.5); ALKALINE PHOSPHATASE 157 IU/L (46-116); ANION GAP 10 (8-16); ASPARTATE AMINO TRANSFERASE 29 U/L (10-37); BILIRUBIN,TOTAL 0.5 MG/DL (0.1-1.0); BLOOD UREA NITROGEN 27 MG/DL (7-18); BUN/CREATININE RATIO 19.6 (5.4-32.0); CALCIUM 8.1 MG/DL (8.5-10.1); CHLORIDE 104 MMOL/L (99-107); CREATININE 1.38 MG/DL (0.60-1.10); GLUCOSE 100 MG/DL (70-104); POTASSIUM 4.6 MMOL/L (3.5-5.1); SODIUM 137 MMOL/L (135-145); TOTAL CARBON DIOXIDE 23.5 MMOL/L (24-32); TOTAL PROTEIN 7.1 G/DL (6.4-8.2); eGFR 53 ML/MIN
[2021-02-16] MEDS: furosemide 40mg/4ml inj IV SCH ×2 (08:44→20:18)
[2021-02-16] MEDS: enoxaparin 80mg/0.8ml syringe SUBCUT SCH ×2 (08:55→20:19)
[2021-02-16] MEDS: enoxaparin 30mg/0.3ml syringe SUBCUT SCH ×2 (08:55→20:19)
[2021-02-16 11:00] VITALS: BP 101/55
[2021-02-16 15:00] VITALS: BP 101/56
[2021-02-16 18:00] VITALS: BP 105/56
--- NOTE | 2021-02-16 18:12 | NUR ---
Problems reprioritized. Patient report given, questions answered & plan of care reviewed with Alma AGUILA.
--- NOTE | 2021-02-16 18:19 | NUR ---
Patient in room PCU 3010. I have received report from AYLA Green and had the opportunity to ask questions and assume patient care.
[2021-02-16] MEDS: zolpidem 5mg tablet PO SCH (20:19)
[2021-02-16] MEDS ORDERED: warfarin 1mg tablet PO ONE (21:00)
[2021-02-16 22:00] VITALS: BP 105/63
[2021-02-17] MEDS: ampicillin inj 2 GM in normal saline 100ml IV soln 100 ML IV SCH ×4 (01:47→20:41)
[2021-02-17 02:00] VITALS: BP 94/70
--- NOTE | 2021-02-17 06:08 | NUR ---
Problems reprioritized. Patient report given, questions answered & plan of care reviewed with AYLA Mahan.
[2021-02-17 07:16] VITALS: BP 101/67
[2021-02-17] MEDS: K and/or MAG REPLACEMENT MC SCH ×2 (08:00→20:00)
[2021-02-17] MEDS: enoxaparin 80mg/0.8ml syringe SUBCUT SCH (08:24)
[2021-02-17] MEDS: carVEDilol 3.125mg tablet PO SCH ×2 (08:25→20:39)
[2021-02-17] MEDS: aspirin 81mg tablet.DR PO SCH (08:25)
[2021-02-17] MEDS: enoxaparin 30mg/0.3ml syringe SUBCUT SCH (08:25)
[2021-02-17] MEDS: levoTHYROXINE 25mcg tablet PO SCH (08:25)
[2021-02-17] MEDS: lactobacillus rhamnosus 10,000 MMU CELLS/CAPSULE PO SCH ×2 (08:25→20:39)
[2021-02-17] MEDS: furosemide 40mg/4ml inj IV SCH ×2 (08:25→20:39)
[2021-02-17] MEDS: potassium Cl 20 mEq SR tablet PO SCH (08:25)
[2021-02-17] MEDS: HYDROcodone/acetaminophen 5mg/325mg tablet PO PRN (08:25)
[2021-02-17] MEDS: amiodarone 200mg tablet PO SCH (08:25)
[2021-02-17 12:10] VITALS: BP 101/70
[2021-02-17 16:59] VITALS: BP 104/67
[2021-02-17 18:00] VITALS: BP 97/64
--- NOTE | 2021-02-17 18:20 | NUR ---
Patient in room PCU 3010. I have received report from AYLA Mahan and had the opportunity to ask questions and assume patient care.
[2021-02-17] MEDS: zolpidem 5mg tablet PO SCH (20:39)
[2021-02-17] MEDS ORDERED: warfarin 1mg tablet PO ONE (21:00)
[2021-02-17 22:00] VITALS: BP 100/71
[2021-02-18 02:00] VITALS: BP 108/72
[2021-02-18] MEDS: ampicillin inj 2 GM in normal saline 100ml IV soln 100 ML IV SCH ×4 (02:55→19:29)
--- NOTE | 2021-02-18 06:30 | NUR ---
Problems reprioritized. Patient report given, questions answered & plan of care reviewed with AYLA Mahan.
[2021-02-18] MEDS: K and/or MAG REPLACEMENT MC SCH ×2 (07:51→20:00)
[2021-02-18 07:58] VITALS: BP 106/74
[2021-02-18] MEDS: furosemide 40mg/4ml inj IV SCH ×2 (08:45→19:29)
[2021-02-18] MEDS: lactobacillus rhamnosus 10,000 MMU CELLS/CAPSULE PO SCH ×2 (08:45→19:30)
[2021-02-18] MEDS: aspirin 81mg tablet.DR PO SCH (08:45)
[2021-02-18] MEDS: amiodarone 200mg tablet PO SCH (08:45)
[2021-02-18] MEDS: carVEDilol 3.125mg tablet PO SCH ×2 (08:45→19:30)
[2021-02-18] MEDS: HYDROcodone/acetaminophen 5mg/325mg tablet PO PRN (08:45)
[2021-02-18] MEDS: potassium Cl 20 mEq SR tablet PO SCH (08:45)
[2021-02-18] MEDS: levoTHYROXINE 25mcg tablet PO SCH (08:45)
[2021-02-18 10:08] LABS: ALANINE AMINOTRANSFERASE 26 U/L (12-78); ALBUMIN 2.2 G/DL (3.4-5.0); ALBUMIN/GLOBULIN RATIO 0.5 (1.1-1.5); ALKALINE PHOSPHATASE 150 IU/L (46-116); ANION GAP 7 (8-16); ASPARTATE AMINO TRANSFERASE 32 U/L (10-37); BILIRUBIN,TOTAL 0.4 MG/DL (0.1-1.0); BLOOD UREA NITROGEN 24 MG/DL (7-18); BUN/CREATININE RATIO 21.8 (5.4-32.0); CALCIUM 7.6 MG/DL (8.5-10.1); CHLORIDE 104 MMOL/L (99-107); GLUCOSE 79 MG/DL (70-104); POTASSIUM 4.5 MMOL/L (3.5-5.1); SODIUM 139 MMOL/L (135-145); TOTAL CARBON DIOXIDE 27.6 MMOL/L (24-32); TOTAL PROTEIN 6.7 G/DL (6.4-8.2); eGFR 69 ML/MIN
[2021-02-18 10:09] LABS: BASOPHILS % (AUTO) 0.8 % (0-1); EOSINOPHILS # (AUTO) 0.1 X10'3 (0-0.9); EOSINOPHILS % (AUTO) 1.8 % (0-6); HEMATOCRIT 38.8 % (42.0-52.0); LYMPHOCYTES # (AUTO) 1.7 X10'3 (1.1-4.8); LYMPHOCYTES % (AUTO) 29.7 % (21-51); MEAN CORPUSCULAR HEMOGLOBIN 27.6 PG (27.0-31.0); MEAN CORPUSCULAR HGB CONC 30.9 g/dL (33.0-36.5); MEAN CORPUSCULAR VOLUME 89.2 FL (78-98); MEAN PLATELET VOLUME 7.2 FL (7.4-10.4); MONOCYTES # (AUTO) 0.7 X10'3 (0-0.9); MONOCYTES % (AUTO) 12.9 % (2-12); NEUTROPHILS # (AUTO) 3.2 X10'3 (1.8-7.7); NEUTROPHILS % (AUTO) 54.8 % (42-75); PLATELET COUNT 434 X10'3 (140-440); RED BLOOD COUNT 4.35 X10'6 (4.70-6.10); RED CELL DISTRIBUTION WIDTH 17.5 % (11.5-14.5); WHITE BLOOD COUNT 5.8 X10'3 (4.5-11.0)
--- NOTE | 2021-02-18 11:21 | NUR ---
Reassessment: Pt PO improved to 100% recent meals up from 50% avg prior receiving ensure pudding TIDWM likely now meeting minimum estimated needs. Pt has no SOB at this time on room air w/ bilateral pleural effusions and possible CT placement per MD note. LBM 02/16. Will continue to monitor. Rec: 1. continue heart healthy/2L fluid-restricted diet per MD; 2. ensure pudding TIDWM for additional protein/kcals 3. routine bowel care 4. weekly wts Addendum: 02/18/21 at [address] Amended: Links added.
[2021-02-18 11:48] VITALS: BP 93/60
[2021-02-18 15:49] VITALS: BP 95/59
[2021-02-18 18:00] VITALS: BP 101/54
[2021-02-18] MEDS: zolpidem 5mg tablet PO SCH (20:34)
[2021-02-18] MEDS ORDERED: warfarin 3mg tablet PO ONE (21:00)
[2021-02-18 22:00] VITALS: BP 96/61
[2021-02-19] MEDS: ampicillin inj 2 GM in normal saline 100ml IV soln 100 ML IV SCH ×2 (01:25→08:30)
[2021-02-19 02:00] VITALS: BP 95/59
--- NOTE | 2021-02-19 06:14 | NUR ---
Problems reprioritized. Patient report given, questions answered & plan of care reviewed with AYLA Mahan.
[2021-02-19] MEDS: K and/or MAG REPLACEMENT MC SCH (07:21)
[2021-02-19 07:28] VITALS: BP 93/62
[2021-02-19] MEDS: potassium Cl 20 mEq SR tablet PO SCH (08:29)
[2021-02-19] MEDS: amiodarone 200mg tablet PO SCH (08:29)
[2021-02-19] MEDS: carVEDilol 3.125mg tablet PO SCH (08:29)
[2021-02-19] MEDS: levoTHYROXINE 25mcg tablet PO SCH (08:29)
[2021-02-19] MEDS: lactobacillus rhamnosus 10,000 MMU CELLS/CAPSULE PO SCH (08:29)
[2021-02-19] MEDS: aspirin 81mg tablet.DR PO SCH (08:29)
[2021-02-19] MEDS: HYDROcodone/acetaminophen 5mg/325mg tablet PO PRN (08:29)
[2021-02-19] MEDS: furosemide 40mg/4ml inj IV SCH (08:30)
[2021-02-19] MEDS ORDERED: LEVO25TA7 PO (10:31)
[2021-02-19] MEDS ORDERED: WARF3TAB56 PO (10:40)
--- NOTE | 2021-02-19 10:51 | NUR ---
PT RECEIVED AND WAS EDUCATED ON DC PAPERWORK. PT VERBALIZED UNDERSTANDING OF DC INSTRUCTIONS. IVS WHERE REMOVED TIP IN TACKED. HEART MONITOR REMOVED AND PLACED IN MONITOR ROOM. ALL BELONGING WHERE SENT HOME WITH PATIENT
== END 2021-02-19 11:15 | disposition home health service (06) | DRG 134 ==
LOC: ER 03:12 → ED HOLD 08:05 → ER 08:38 → PCU 3S 11:08
PROVIDERS: ADMIT Family Medicine; ATTEND Family Medicine
PROC: BW241ZZ Computerized Tomography (CT Scan) of Chest and Abdomen using Low Osmolar Contrast (ICD-10-PCS; 2021-02-09)
PROC: 5A09457 Assistance with Respiratory Ventilation, 24-96 Consecutive Hours, Continuous Positive Airway Pressure (ICD-10-PCS; principal; 2021-02-12)
PROC: 5A09357 Assistance with Respiratory Ventilation, Less than 24 Consecutive Hours, Continuous Positive Airway Pressure (ICD-10-PCS; 2021-02-17)
PROC: 5A09357 Assistance with Respiratory Ventilation, Less than 24 Consecutive Hours, Continuous Positive Airway Pressure (ICD-10-PCS; 2021-02-19)
DX: I26.99 Other pulmonary embolism without acute cor pulmonale (principal); N17.0 Acute kidney failure with tubular necrosis; I21.A1 Myocardial infarction type 2; J86.9 Pyothorax without fistula; I50.43 Acute on chronic combined systolic (congestive) and diastolic (congestive) heart failure; D68.59 Other primary thrombophilia; J18.9 Pneumonia, unspecified organism; E66.01 Morbid (severe) obesity due to excess calories; I13.0 Hypertensive heart and chronic kidney disease with heart failure and stage 1 through stage 4 chronic kidney disease, or unspecified chronic kidney disease; I42.7 Cardiomyopathy due to drug and external agent; E87.1 Hypo-osmolality and hyponatremia; I51.3 Intracardiac thrombosis, not elsewhere classified; F41.9 Anxiety disorder, unspecified; I48.91 Unspecified atrial fibrillation; N18.9 Chronic kidney disease, unspecified; Z20.822 Contact with and (suspected) exposure to COVID-19; E03.9 Hypothyroidism, unspecified; G47.33 Obstructive sleep apnea (adult) (pediatric); J44.0 Chronic obstructive pulmonary disease with (acute) lower respiratory infection; B95.2 Enterococcus as the cause of diseases classified elsewhere; T43.625A Adverse effect of amphetamines, initial encounter; K74.60 Unspecified cirrhosis of liver; N39.0 Urinary tract infection, site not specified; S20.219A Contusion of unspecified front wall of thorax, initial encounter; Z79.01 Long term (current) use of anticoagulants; Z87.891 Personal history of nicotine dependence; Z68.39 Body mass index [BMI] 39.0-39.9, adult; Z59.0 Homelessness; Z91.030 Bee allergy status; Z90.49 Acquired absence of other specified parts of digestive tract; Z79.899 Other long term (current) drug therapy; Z79.82 Long term (current) use of aspirin; Y92.89 Other specified places as the place of occurrence of the external cause; E87.5 Hyperkalemia
CPT/HCPCS: 36415; 36600; 71045; 71250; 76937; 80048; 80053; 80061; 80305; 81001; 82803; 83605; 83735; 83880; 84132; 84145; 84443; 84484; 85018; 85025; 85610; 85730; 87040; 87077; 87081; 87088; 87186; 87426; 93005; 93308; 93970; 94660; 94760; 96374; 97110; 97116; 97161; 97530; 99285; G0378; J0290; J1644; J1650; J1940; J2765; J3480; J7030; Q9967

== ENCOUNTER 2021-02-28 15:58 | Inpatient (IN) | payer MEDICAID ==
[~2021-02-28] VITALS: Ht 177.8 cm; Wt 120.5 kg
[~2021-02-28 15:58] MED LIST changes: +ALBU8HFA PO; +AMIO200T61 PO; +CARV3.1246 PO; -CARV6.256 PO; +FURO-149 PO; +LEVO25TA7 PO; -SPIR25TA5 PO; +WARF3TAB56 PO; -ZAR2.5T PO; +ZOLP5TAB8 PO
[2021-02-28 17:20] LABS: BASOPHILS # (AUTO) 0.1 X10'3 (0-0.2); EOSINOPHILS % (AUTO) 0.5 % (0-6); HEMATOCRIT 37.5 % (42.0-52.0); LYMPHOCYTES # (AUTO) 1.2 X10'3 (1.1-4.8); LYMPHOCYTES % (AUTO) 19.6 % (21-51); MEAN CORPUSCULAR HEMOGLOBIN 27.8 PG (27.0-31.0); MEAN CORPUSCULAR VOLUME 86.9 FL (78-98); MEAN PLATELET VOLUME 7.2 FL (7.4-10.4); MONOCYTES # (AUTO) 0.5 X10'3 (0-0.9); NEUTROPHILS # (AUTO) 4.2 X10'3 (1.8-7.7); NEUTROPHILS % (AUTO) 70.9 % (42-75); PLATELET COUNT 334 X10'3 (140-440); RED BLOOD COUNT 4.32 X10'6 (4.70-6.10); RED CELL DISTRIBUTION WIDTH 18.5 % (11.5-14.5); WHITE BLOOD COUNT 5.9 X10'3 (4.5-11.0)
[2021-02-28 17:25] LABS: PARTIAL THROMBOPLASTIN TIME 29 SECONDS (22-32)
[2021-02-28 17:29] LABS: ALANINE AMINOTRANSFERASE 28 U/L (12-78); ALBUMIN 2.7 G/DL (3.4-5.0); ALBUMIN/GLOBULIN RATIO 0.5 (1.1-1.5); ALKALINE PHOSPHATASE 185 IU/L (46-116); ANION GAP 9 (8-16); ASPARTATE AMINO TRANSFERASE 37 U/L (10-37); BILIRUBIN,TOTAL 1.4 MG/DL (0.1-1.0); BLOOD UREA NITROGEN 26 MG/DL (7-18); BUN/CREATININE RATIO 16.7 (5.4-32.0); CALCIUM 8.6 MG/DL (8.5-10.1); CHLORIDE 103 MMOL/L (99-107); CREATININE 1.56 MG/DL (0.60-1.10); GLUCOSE 81 MG/DL (70-104); SODIUM 141 MMOL/L (135-145); TOTAL CARBON DIOXIDE 28.6 MMOL/L (24-32); TOTAL PROTEIN 7.9 G/DL (6.4-8.2); eGFR 46 ML/MIN
[2021-02-28 17:39] LABS: ETHANOL < 0.010 GM/DL (0.0-0.010)
[2021-02-28] MEDS ORDERED: normal saline 1000ml 1,000 ML IV ONE (19:00)
[2021-02-28] MEDS ORDERED: enoxaparin 100mg/ml syringe SUBCUT ONE (19:20)
[2021-02-28 19:37] LABS: CLARITY,URINE CLEAR (Clear); COLOR,URINE YELLOW (Yellow); GLUCOSE, URINE NEGATIVE (Neg); KETONES,URINE TRACE mg/dl (Neg); LEUKOCYTE ESTERASE ,URINE NEGATIVE (Neg); NITRITES, URINE NEGATIVE (Neg); OCCULT BLOOD,URINE NEGATIVE (Neg); PH,URINE 5.5 (4.8-8.0); PROTEIN,URINE 30 mg/dl (Neg)
[2021-02-28 19:49] LABS: UA COLLECTION TYPE CLN CATCH MIDSTREAM; URINE AMPHETAMINE SCREEN POSITIVE (Neg); URINE BARBITUATE SCREEN NEGATIVE (Neg); URINE BENZODIAZEPINES SCREEN NEGATIVE (Neg); URINE CANNABINOID SCREEN NEGATIVE (Neg); URINE COCAINE SCREEN NEGATIVE (Neg); URINE METHADONE SCREEN NEGATIVE (Neg); URINE OPIATE SCREEN POSITIVE (Neg); URINE PHENCYCLIDINE SCREEN NEGATIVE (Neg)
[2021-02-28 19:52] LABS: BACTERIA,URINE FEW /HPF (Neg); SQUAMOUS EPITHELIAL CELL,UR FEW /LPF (FEW); STARCH,URINE FEW /HPF (NEGATIVE); WBC,URINE 0-4 /HPF (0-4)
[2021-02-28 20:05] LABS: ABG BASE EXCESS 1.2 mmol/L (-2.0-2.0); ABG HCO3 25.7 mmol/L (22.0-26.0); ABG OXYGEN SATURATION 92.4 % (94-97); ABG PCO2 (T) 39.9 mmHg (35.0-48.0); ABG PO2 (T) 64.8 mmHg (75.0-100.0); ALLEN'S TEST POSITIVE; FMetHb 0.1 % (0.0-1.5); FO2Hb 91.4 % (94-97); PATIENT TEMPERATURE 36.8; TOTAL HEMOGLOBIN 11.7 G/dl (14.0-18.0)
[2021-02-28] MEDS: enoxaparin 100mg/ml syringe SUBCUT SCH (20:10)
[2021-02-28] MEDS ORDERED: NO HOME MEDS (20:36)
[2021-02-28] MEDS: warfarin 3mg tablet PO SCH (21:36)
[2021-02-28] MEDS: furosemide 40mg tablet PO SCH (21:53)
[2021-02-28] MEDS: amiodarone 200mg tablet PO SCH (21:53)
--- NOTE | 2021-02-28 22:03 | NUR ---
The patient was moved to bed 26 in the ER. He was cooperative with the move. He is SOB with activity. Discussed plan of care with the patient. The patient has a PIV #18 left ac. He has small open sores up and down his arms which look like from meth use. His lower legs have 2+pitting edema. His legs are very red and he has a quarter size wound on the back of his left nguyen. Griffin CAMILO examined legs and feels this is a chronic condition. The patient was given a snack. He is poorly oriented and could not state the year, month and asked if he was in [facility]. When asked why he was here he stated, "I hit my head. I'm an idiot"
--- NOTE | 2021-02-28 22:42 | NUR ---
The patient appears to be sleeping
--- NOTE | 2021-03-01 01:02 | NUR ---
The patient is mumbling and grumbling to himself. When approached he stated, "I feel high and I don't know why" He intially denied meth use but did not argue when he was told it was in his drug scree.
--- NOTE | 2021-03-01 02:39 | NUR ---
The patient appears to be sleeping but restlessly
--- NOTE | 2021-03-01 04:28 | NUR ---
patient requesting to clean up. He was given hygiene supplies.
--- NOTE | 2021-03-01 05:55 | NUR ---
THe patient complaining of feeling short of breath. He is agitated and making delusional statements.
--- NOTE | 2021-03-01 07:00 | NUR ---
PT ASKING TO USE THE PHONE. JAE INFORMED HIM HE CAN USE IT A 0800
[2021-03-01] MEDS: levoTHYROXINE 25mcg tablet PO SCH (07:26)
[2021-03-01] MEDS: furosemide 40mg tablet PO SCH (08:47)
[2021-03-01] MEDS: amiodarone 200mg tablet PO SCH (08:47)
[2021-03-01] MEDS: enoxaparin 100mg/ml syringe SUBCUT SCH ×2 (08:48→21:15)
--- NOTE | 2021-03-01 10:00 | NUR ---
PT SLEEPING QUIETLY
[2021-03-01] MEDS ORDERED: OLANZapine 5mg rapidly disint. tablet PO ONE (12:05)
--- NOTE | 2021-03-01 12:50 | NUR ---
PT UP OUT OF BED, PT AMBULATED TO THE BATHROOM WITH A STEADY GAIT.
[2021-03-01] MEDS ORDERED: diphenhydrAMINE 50 mg/ml inj IM ONE (13:10)
[2021-03-01] MEDS ORDERED: haloperidol lactate 5mg/ml inj IM ONE (13:10)
--- NOTE | 2021-03-01 13:13 | NUR ---
ZYPREXA NOT EFFECTIVE, INFORMED DR. HERNANDEZ. PT IS CONTINUOUSLY TALKING, GETTING LOUD AND ANGRY AT TIMES. ASKING TO CALL HIS DAD OR HE WILL CALL THE POLICE. PLEASE SEE NEW ORDERS.
--- NOTE | 2021-03-01 15:13 | NUR ---
pt sleeping quietly
--- NOTE | 2021-03-01 18:30 | NUR ---
PT STATES, I WEAR A CPAP AT NIGHT AND NEED IT TO BREATHE. ALSO IM NOT ABLE TO PEE. " PENIS IS RED AND SWOLLEN, WAS ABLE TO VOID TODAY. INFORMED DR. RODRIGUEZ, WILL BE OVER LATER TO ASSESS PT.
--- NOTE | 2021-03-01 20:20 | NUR ---
Pt SOB with productive cough. Lungs sounds diminished in bases with some rhonchi in upper chest. CMP and PBMP ordered.
--- NOTE | 2021-03-01 20:30 | NUR ---
Patient complaint of urinary retention. Pt catheterized. 400 mls urine out.
[2021-03-01] MEDS ORDERED: ipratropium/albuterol 3ml nebule NEB ONE (20:55)
--- NOTE | 2021-03-01 20:59 | NUR ---
SVN ordered for SOB. O2 at 99% on 6L. O2 titrated down to 4L. Pt at 96%
[2021-03-01] MEDS: warfarin 3mg tablet PO SCH (21:16)
[2021-03-01 21:19] LABS: ALANINE AMINOTRANSFERASE 28 U/L (12-78); ALBUMIN 2.3 G/DL (3.4-5.0); ALBUMIN/GLOBULIN RATIO 0.5 (1.1-1.5); ALKALINE PHOSPHATASE 166 IU/L (46-116); ANION GAP 6 (8-16); ASPARTATE AMINO TRANSFERASE 31 U/L (10-37); BILIRUBIN,TOTAL 0.7 MG/DL (0.1-1.0); BLOOD UREA NITROGEN 27 MG/DL (7-18); BUN/CREATININE RATIO 16.8 (5.4-32.0); CHLORIDE 105 MMOL/L (99-107); CREATININE 1.61 MG/DL (0.60-1.10); GLUCOSE 126 MG/DL (70-104); POTASSIUM 3.6 MMOL/L (3.5-5.1); SODIUM 139 MMOL/L (135-145); TOTAL PROTEIN 6.9 G/DL (6.4-8.2); eGFR 45 ML/MIN
[2021-03-01] MEDS ORDERED: furosemide 10 MG/1 ML 10ml inj IV ONE (22:20)
[2021-03-02] MEDS ORDERED: potassium Cl 20 mEq SR tablet PO PRN (05:10)
[2021-03-02] MEDS ORDERED: acetaminophen 325mg tablet PO PRN (05:10)
[2021-03-02] MEDS ORDERED: albuterol 2.5 MG/3 ML nebule NEB PRN (05:10)
[2021-03-02] MEDS ORDERED: magnesium 4gm in 100ml NS 100 ML IV PRN (05:10)
[2021-03-02] MEDS ORDERED: mag hydrox/Alum hydrox/simeth 30ml oral suspension PO PRN (05:10)
[2021-03-02] MEDS ORDERED: magnesium hydroxide 30ml (MOM) UD suspension PO PRN (05:10)
[2021-03-02] MEDS ORDERED: magnesium 2GM in 50ml NS 50 ML IV PRN (05:10)
[2021-03-02] MEDS ORDERED: ondansetron/PF 4mg/2ml inj IV PRN (05:10)
[2021-03-02] MEDS ORDERED: potassium Cl 40MEQ/1/2NS 520ml 520 ML IV PRN ×2 (05:10)
--- NOTE | 2021-03-02 06:25 | NUR ---
Patient sleeping on right side with head of bed elevated. Patient has c-pap on and appears comfortable. RN listened to lungs, slight wheeze on right lower lobe. +diminished. Patient has +3 pitting edema to bilateral lower legs which goes up to abdomen. Patient has scabs to hands and a wound to his left nguyen. Continue to monitor.
--- NOTE | 2021-03-02 07:00 | NUR ---
Patient in room MED 316. I have received report from conrado rene rn and had the opportunity to ask questions and assume patient care.
--- NOTE | 2021-03-02 07:10 | NUR ---
Patient in room ED 26. I have received report from edgard, assistant store manager operations and had the opportunity to ask questions and assume patient care.
--- NOTE | 2021-03-02 07:50 | NUR ---
RN gave report to AYLA Pompa. Per Aletha, she has a call in to the Nursing sup to request a sitter for patient since he was on a 5150 for DTS. Will send up once he has a sitter.
[2021-03-02] MEDS: furosemide 10 MG/1 ML 10ml inj IV SCH ×2 (07:52→19:56)
[2021-03-02] MEDS: amiodarone 200mg tablet PO SCH (07:53)
[2021-03-02] MEDS: enoxaparin 100mg/ml syringe SUBCUT SCH ×2 (07:53→19:57)
[2021-03-02] MEDS: levoTHYROXINE 25mcg tablet PO SCH (07:53)
[2021-03-02] MEDS: montelukast 10mg tablet PO SCH (07:53)
[2021-03-02] MEDS: K and/or MAG REPLACEMENT MC SCH ×2 (08:00→19:59)
--- NOTE | 2021-03-02 08:10 | NUR ---
EKG shows HR 45-62, low voltage. Patient is calm and cooperative. Continue to monitor.
--- NOTE | 2021-03-02 08:25 | NUR ---
RN sat patient up and gave him his medication. Patient placed in a gown and EKG leads placed. Looks the same as the EKG in the chart. Patient is now sitting up and eating breakfast.
[2021-03-02 08:30] VITALS: BP 108/75
[2021-03-02 08:30] LABS: BASOPHILS # (AUTO) 0.1 X10'3 (0-0.2); EOSINOPHILS # (AUTO) 0.1 X10'3 (0-0.9); HEMOGLOBIN 12.4 g/dl (14.0-17.9); LYMPHOCYTES # (AUTO) 1.3 X10'3 (1.1-4.8); LYMPHOCYTES % (AUTO) 20.3 % (21-51); MEAN CORPUSCULAR HEMOGLOBIN 27.3 PG (27.0-31.0); MEAN PLATELET VOLUME 7.1 FL (7.4-10.4); MONOCYTES # (AUTO) 0.5 X10'3 (0-0.9); MONOCYTES % (AUTO) 7.6 % (2-12); NEUTROPHILS # (AUTO) 4.5 X10'3 (1.8-7.7); NEUTROPHILS % (AUTO) 70.1 % (42-75); PLATELET COUNT 299 X10'3 (140-440); RED BLOOD COUNT 4.54 X10'6 (4.70-6.10); RED CELL DISTRIBUTION WIDTH 19.2 % (11.5-14.5); WHITE BLOOD COUNT 6.4 X10'3 (4.5-11.0)
--- NOTE | 2021-03-02 08:30 | NUR ---
received pt into room 316,oriented to surroundings,pt anxious,rapid,pressured speech,calms with explanations,sitter at bedside,VSS
[2021-03-02 08:39] LABS: ALANINE AMINOTRANSFERASE 23 U/L (12-78); ALBUMIN 2.4 G/DL (3.4-5.0); ALBUMIN/GLOBULIN RATIO 0.5 (1.1-1.5); ALKALINE PHOSPHATASE 172 IU/L (46-116); ANION GAP 7 (8-16); ASPARTATE AMINO TRANSFERASE 36 U/L (10-37); BILIRUBIN,TOTAL 0.8 MG/DL (0.1-1.0); BLOOD UREA NITROGEN 25 MG/DL (7-18); BUN/CREATININE RATIO 17.6 (5.4-32.0); CALCIUM 7.9 MG/DL (8.5-10.1); CHLORIDE 104 MMOL/L (99-107); CREATININE 1.42 MG/DL (0.60-1.10); GLUCOSE 96 MG/DL (70-104); POTASSIUM 3.8 MMOL/L (3.5-5.1); SODIUM 144 MMOL/L (135-145); TOTAL CARBON DIOXIDE 32.6 MMOL/L (24-32); TOTAL PROTEIN 7.2 G/DL (6.4-8.2); eGFR 52 ML/MIN
[2021-03-02] MEDS: budesonide 0.5mg/2ml UD nebule IH SCH ×2 (08:51→18:34)
[2021-03-02 09:21] LABS: ANISOCYTOSIS 2+; ELLIPTOCYTES FEW; HYPOCHROMASIA 1+; PLATELET ESTIMATE NORMAL; SCHISTOCYTES FEW
[2021-03-02 12:00] VITALS: BP 116/73
[2021-03-02] MEDS ORDERED: ondansetron 4mg rapidly disintigrating tab PO PRN (12:55)
[2021-03-02 15:00] VITALS: BP 118/76
--- NOTE | 2021-03-02 16:35 | NUR ---
PAGER ID: [phone] MESSAGE: 316 pt Saturnino. Did you see MRI results? Want tele neuro consult/new orders? - Tracy [phone]
[2021-03-02] MEDS: CefTRIAXone 2gm/D5W 50ml BAG 50 ML IV SCH (17:18)
--- NOTE | 2021-03-02 18:25 | NUR ---
Problems reprioritized. Patient report given, questions answered & plan of care reviewed with herber jimenez.
--- NOTE | 2021-03-02 18:25 | NUR ---
Patient in room MED 316. I have received report from Bradford, and had the opportunity to ask questions and assume patient care.
[2021-03-02] MEDS: ipratropium/albuterol 3ml nebule NEB PRN (18:34)
[2021-03-02 20:00] VITALS: BP 113/74
[2021-03-02] MEDS ORDERED: warfarin 5mg tablet PO ONE (21:00)
[2021-03-02 22:30] VITALS: BP 116/72
--- NOTE | 2021-03-02 23:29 | NUR ---
Called Dr. Velasco regarding patient switched from CPAP to BiPAP based on RT recommendation to make the patient more comfortable. He ordered the BiPAP on the patient. No other orders were given at this time.
[2021-03-03] VITALS (7 sets, daily range): BP systolic 103–130; BP diastolic 68–90
--- NOTE | 2021-03-03 01:00 | NUR ---
Patient is doing better with BiPAP on. FiO2 at 28%. Resting comfortably with the sitter at the bedside..
[2021-03-03 06:07] LABS: BASOPHILS # (AUTO) 0.1 X10'3 (0-0.2); BASOPHILS % (AUTO) 1.1 % (0-1); EOSINOPHILS # (AUTO) 0.2 X10'3 (0-0.9); EOSINOPHILS % (AUTO) 3.1 % (0-6); HEMATOCRIT 36.5 % (42.0-52.0); HEMOGLOBIN 11.5 g/dl (14.0-17.9); LYMPHOCYTES # (AUTO) 1.3 X10'3 (1.1-4.8); LYMPHOCYTES % (AUTO) 21.6 % (21-51); MEAN CORPUSCULAR HEMOGLOBIN 27.7 PG (27.0-31.0); MEAN CORPUSCULAR HGB CONC 31.4 g/dL (33.0-36.5); MEAN CORPUSCULAR VOLUME 88.1 FL (78-98); MEAN PLATELET VOLUME 7.6 FL (7.4-10.4); MONOCYTES # (AUTO) 0.6 X10'3 (0-0.9); MONOCYTES % (AUTO) 9.6 % (2-12); NEUTROPHILS % (AUTO) 64.6 % (42-75); RED BLOOD COUNT 4.14 X10'6 (4.70-6.10); RED CELL DISTRIBUTION WIDTH 18.8 % (11.5-14.5); WHITE BLOOD COUNT 6.2 X10'3 (4.5-11.0)
[2021-03-03 06:24] LABS: ALANINE AMINOTRANSFERASE 24 U/L (12-78); ALBUMIN 2.1 G/DL (3.4-5.0); ALBUMIN/GLOBULIN RATIO 0.5 (1.1-1.5); ALKALINE PHOSPHATASE 148 IU/L (46-116); ANION GAP 3 (8-16); ASPARTATE AMINO TRANSFERASE 38 U/L (10-37); BILIRUBIN,TOTAL 0.5 MG/DL (0.1-1.0); BLOOD UREA NITROGEN 22 MG/DL (7-18); BUN/CREATININE RATIO 19.6 (5.4-32.0); CALCIUM 7.7 MG/DL (8.5-10.1); CHLORIDE 105 MMOL/L (99-107); CREATININE 1.12 MG/DL (0.60-1.10); GLUCOSE 85 MG/DL (70-104); MAGNESIUM 1.8 MG/DL (1.5-2.4); POTASSIUM 3.3 MMOL/L (3.5-5.1); SODIUM 140 MMOL/L (135-145); TOTAL CARBON DIOXIDE 32.3 MMOL/L (24-32); TOTAL PROTEIN 6.6 G/DL (6.4-8.2); eGFR 68 ML/MIN
--- NOTE | 2021-03-03 06:27 | NUR ---
Problems reprioritized. Patient report given, questions answered & plan of care reviewed with Pat-RN.
[2021-03-03 06:33] LABS: PLATELET COUNT 282 X10'3 (140-440)
[2021-03-03] MEDS: K and/or MAG REPLACEMENT MC SCH ×2 (08:00→20:00)
[2021-03-03] MEDS: ipratropium/albuterol 3ml nebule NEB PRN (08:24)
[2021-03-03] MEDS: budesonide 0.5mg/2ml UD nebule IH SCH ×2 (08:24→19:27)
[2021-03-03 09:14] LABS: ANISOCYTOSIS 2+; LARGE PLATELETS FEW; PLATELET ESTIMATE NORMAL
[2021-03-03 09:15] LABS: TARGET CELLS FEW
[2021-03-03] MEDS: amiodarone 200mg tablet PO SCH (09:52)
[2021-03-03] MEDS: montelukast 10mg tablet PO SCH (09:52)
[2021-03-03] MEDS: levoTHYROXINE 25mcg tablet PO SCH (09:52)
[2021-03-03] MEDS: enoxaparin 100mg/ml syringe SUBCUT SCH (09:53)
[2021-03-03] MEDS: furosemide 10 MG/1 ML 10ml inj IV SCH ×3 (09:54→20:00)
[2021-03-03] MEDS: CefTRIAXone 2gm/D5W 50ml BAG 50 ML IV SCH (09:54)
[2021-03-03] MEDS ORDERED: enoxaparin 60mg/0.6ml syringe SUBCUT SCH (13:20)
[2021-03-03] MEDS: potassium Cl 20 mEq SR tablet PO PRN (19:57)
[2021-03-03] MEDS: lactobacillus rhamnosus 10,000 MMU CELLS/CAPSULE PO SCH (19:58)
[2021-03-03] MEDS: enoxaparin 60mg/0.6ml syringe SUBCUT SCH ×2 (19:59)
[2021-03-03] MEDS: mineral oil/petrolatum, white cream 113gm jar TP SCH (20:00)
--- NOTE | 2021-03-03 20:52 | NUR ---
Called Dr. Velasco regarding the patient who had an ischemic stroke, and his systolic blood pressure being under 120's despite the recommendation by Neurotele consult to keep <180 SBP >140. He acknowledged the recommended blood pressure range by Neurotele , But no orders were given at this time.
--- NOTE | 2021-03-03 20:59 | NUR ---
Did not administer patient's furosemide due to low pressure. Pt. is resting well. Not under any distress at this time.
[2021-03-03] MEDS ORDERED: warfarin 5mg tablet PO ONE (21:00)
[2021-03-04 02:00] VITALS: BP 118/78
--- NOTE | 2021-03-04 04:05 | NUR ---
Called Dr. Velasco regarding the patient having a 6 beat run of V tach at 0400. He acknowledged and ordered to replace Mag and K if low. No other orders were given at this time.
[2021-03-04] MEDS: potassium Cl 20 mEq SR tablet PO PRN (04:09)
[2021-03-04 06:17] LABS: BASOPHILS % (AUTO) 0.9 % (0-1); EOSINOPHILS # (AUTO) 0.2 X10'3 (0-0.9); EOSINOPHILS % (AUTO) 4.7 % (0-6); HEMOGLOBIN 11.4 g/dl (14.0-17.9); LYMPHOCYTES # (AUTO) 1.1 X10'3 (1.1-4.8); LYMPHOCYTES % (AUTO) 20.7 % (21-51); MEAN CORPUSCULAR HEMOGLOBIN 27.6 PG (27.0-31.0); MEAN CORPUSCULAR HGB CONC 31.8 g/dL (33.0-36.5); MEAN CORPUSCULAR VOLUME 86.9 FL (78-98); MEAN PLATELET VOLUME 7.5 FL (7.4-10.4); MONOCYTES # (AUTO) 0.4 X10'3 (0-0.9); MONOCYTES % (AUTO) 8.1 % (2-12); NEUTROPHILS # (AUTO) 3.4 X10'3 (1.8-7.7); NEUTROPHILS % (AUTO) 65.6 % (42-75); PLATELET COUNT 273 X10'3 (140-440); RED BLOOD COUNT 4.14 X10'6 (4.70-6.10); WHITE BLOOD COUNT 5.3 X10'3 (4.5-11.0)
[2021-03-04 06:30] VITALS: BP 113/77
[2021-03-04 06:30] LABS: ALANINE AMINOTRANSFERASE 19 U/L (12-78); ALBUMIN 1.9 G/DL (3.4-5.0); ALBUMIN/GLOBULIN RATIO 0.4 (1.1-1.5); ALKALINE PHOSPHATASE 132 IU/L (46-116); ANION GAP 3 (8-16); ASPARTATE AMINO TRANSFERASE 30 U/L (10-37); BILIRUBIN,TOTAL 0.6 MG/DL (0.1-1.0); BLOOD UREA NITROGEN 19 MG/DL (7-18); BUN/CREATININE RATIO 20.2 (5.4-32.0); CALCIUM 7.3 MG/DL (8.5-10.1); CHLORIDE 103 MMOL/L (99-107); CREATININE 0.94 MG/DL (0.60-1.10); GLUCOSE 82 MG/DL (70-104); MAGNESIUM 1.8 MG/DL (1.5-2.4); POTASSIUM 3.5 MMOL/L (3.5-5.1); SODIUM 138 MMOL/L (135-145); TOTAL CARBON DIOXIDE 32.3 MMOL/L (24-32); TOTAL PROTEIN 6.2 G/DL (6.4-8.2); eGFR 83 ML/MIN
--- NOTE | 2021-03-04 06:40 | NUR ---
Problems reprioritized. Patient report given, questions answered & plan of care reviewed with Shalom.
[2021-03-04] MEDS: mineral oil/petrolatum, white cream 113gm jar TP SCH ×2 (08:00→20:00)
[2021-03-04] MEDS: K and/or MAG REPLACEMENT MC SCH ×2 (08:00→20:00)
[2021-03-04] MEDS: montelukast 10mg tablet PO SCH (08:20)
[2021-03-04] MEDS: lactobacillus rhamnosus 10,000 MMU CELLS/CAPSULE PO SCH ×2 (08:20→21:33)
[2021-03-04] MEDS: aspirin 81mg tab.chew PO SCH (08:20)
[2021-03-04] MEDS: amiodarone 200mg tablet PO SCH (08:20)
[2021-03-04] MEDS: CefTRIAXone 2gm/D5W 50ml BAG 50 ML IV SCH (08:20)
[2021-03-04] MEDS: enoxaparin 60mg/0.6ml syringe SUBCUT SCH ×4 (08:22→21:34)
[2021-03-04] MEDS: furosemide 10 MG/1 ML 10ml inj IV SCH ×2 (08:23→21:32)
[2021-03-04] MEDS: levoTHYROXINE 25mcg tablet PO SCH (08:29)
[2021-03-04 09:03] LABS: ANISOCYTOSIS 2+; PLATELET ESTIMATE NORMAL
[2021-03-04 09:04] LABS: TARGET CELLS FEW
[2021-03-04] MEDS: ipratropium/albuterol 3ml nebule NEB PRN ×2 (09:05→19:25)
[2021-03-04] MEDS: budesonide 0.5mg/2ml UD nebule IH SCH ×2 (09:05→19:25)
--- NOTE | 2021-03-04 12:38 | NUR ---
PAGER ID: [phone] MESSAGE: 316 pt Saturnino has two 60 mg Lovenox dose orders and coumadin. All were given last night. Do you want 120 mg Loveonx BID and coumadin? - Tracy [phone]
[2021-03-04 13:00] VITALS: BP 112/74
[2021-03-04 17:00] VITALS: BP 120/74
--- NOTE | 2021-03-04 17:00 | NUR ---
PAGER ID: [phone] MESSAGE: Do you want a 1799 hold on 316? decontamination worker was concerned and he is making comments about going AMA Addendum: 03/05/21 at 1826 by Radha Rae RN Patient in room MED 316. I have received report from Honey AGUILA and had the opportunity to ask questions and assume patient care.
[2021-03-04 18:00] VITALS: BP 120/78
[2021-03-04] MEDS ORDERED: warfarin 5mg tablet PO ONE (21:00)
[2021-03-04 22:00] VITALS: BP 106/75
[2021-03-05 02:00] VITALS: BP 107/59
[2021-03-05 06:00] VITALS: BP 110/68
[2021-03-05 07:11] LABS: BASOPHILS # (AUTO) 0.1 X10'3 (0-0.2); BASOPHILS % (AUTO) 1.1 % (0-1); EOSINOPHILS # (AUTO) 0.3 X10'3 (0-0.9); EOSINOPHILS % (AUTO) 5.9 % (0-6); HEMATOCRIT 35.6 % (42.0-52.0); HEMOGLOBIN 11.4 g/dl (14.0-17.9); LYMPHOCYTES # (AUTO) 1.4 X10'3 (1.1-4.8); LYMPHOCYTES % (AUTO) 25.9 % (21-51); MEAN CORPUSCULAR HEMOGLOBIN 27.6 PG (27.0-31.0); MEAN CORPUSCULAR VOLUME 86.4 FL (78-98); MEAN PLATELET VOLUME 7.1 FL (7.4-10.4); MONOCYTES # (AUTO) 0.5 X10'3 (0-0.9); MONOCYTES % (AUTO) 8.4 % (2-12); NEUTROPHILS # (AUTO) 3.2 X10'3 (1.8-7.7); NEUTROPHILS % (AUTO) 58.7 % (42-75); PLATELET COUNT 317 X10'3 (140-440); RED BLOOD COUNT 4.12 X10'6 (4.70-6.10); RED CELL DISTRIBUTION WIDTH 18.6 % (11.5-14.5); WHITE BLOOD COUNT 5.4 X10'3 (4.5-11.0)
[2021-03-05] MEDS: amiodarone 200mg tablet PO SCH (07:23)
[2021-03-05] MEDS: montelukast 10mg tablet PO SCH (07:23)
[2021-03-05] MEDS: levoTHYROXINE 25mcg tablet PO SCH (07:23)
[2021-03-05] MEDS: lactobacillus rhamnosus 10,000 MMU CELLS/CAPSULE PO SCH ×2 (07:24→20:22)
[2021-03-05] MEDS: enoxaparin 60mg/0.6ml syringe SUBCUT SCH ×4 (07:26→20:23)
[2021-03-05 07:33] LABS: ALANINE AMINOTRANSFERASE 22 U/L (12-78); ALBUMIN 2.1 G/DL (3.4-5.0); ALBUMIN/GLOBULIN RATIO 0.5 (1.1-1.5); ALKALINE PHOSPHATASE 131 IU/L (46-116); ANION GAP 3 (8-16); ASPARTATE AMINO TRANSFERASE 32 U/L (10-37); BILIRUBIN,TOTAL 0.5 MG/DL (0.1-1.0); BLOOD UREA NITROGEN 23 MG/DL (7-18); BUN/CREATININE RATIO 19.5 (5.4-32.0); CALCIUM 7.8 MG/DL (8.5-10.1); CHLORIDE 101 MMOL/L (99-107); CREATININE 1.18 MG/DL (0.60-1.10); GLUCOSE 89 MG/DL (70-104); MAGNESIUM 1.6 MG/DL (1.5-2.4); SODIUM 138 MMOL/L (135-145); TOTAL CARBON DIOXIDE 34.3 MMOL/L (24-32); TOTAL PROTEIN 6.5 G/DL (6.4-8.2); eGFR 64 ML/MIN
[2021-03-05] MEDS: K and/or MAG REPLACEMENT MC SCH ×2 (08:00→20:00)
[2021-03-05] MEDS: aspirin 81mg tab.chew PO SCH (08:30)
[2021-03-05] MEDS: CefTRIAXone 2gm/D5W 50ml BAG 50 ML IV SCH (09:01)
[2021-03-05] MEDS: furosemide 10 MG/1 ML 10ml inj IV SCH ×2 (09:01→20:22)
[2021-03-05 09:11] LABS: ANISOCYTOSIS 2+; MICROCYTOSIS 1+; PLATELET ESTIMATE NORMAL; TARGET CELLS FEW
[2021-03-05] MEDS: budesonide 0.5mg/2ml UD nebule IH SCH ×2 (09:19→19:47)
[2021-03-05 11:00] VITALS: BP 100/66
[2021-03-05 15:00] VITALS: BP 90/66
[2021-03-05] MEDS: mineral oil/petrolatum, white cream 113gm jar TP SCH ×2 (15:30→20:23)
[2021-03-05 18:00] VITALS: BP 115/77
[2021-03-05] MEDS: ipratropium/albuterol 3ml nebule NEB PRN (19:47)
[2021-03-05] MEDS ORDERED: warfarin 3mg tablet PO ONE (21:00)
[2021-03-05 22:00] VITALS: BP 94/67
[2021-03-06 02:00] VITALS: BP 100/66
[2021-03-06 06:31] LABS: EOSINOPHILS # (AUTO) 0.3 X10'3 (0-0.9); EOSINOPHILS % (AUTO) 6.1 % (0-6); HEMATOCRIT 33.6 % (42.0-52.0); HEMOGLOBIN 10.8 g/dl (14.0-17.9); LYMPHOCYTES # (AUTO) 1.3 X10'3 (1.1-4.8); LYMPHOCYTES % (AUTO) 26.6 % (21-51); MEAN CORPUSCULAR HEMOGLOBIN 27.5 PG (27.0-31.0); MEAN PLATELET VOLUME 7.2 FL (7.4-10.4); MONOCYTES # (AUTO) 0.4 X10'3 (0-0.9); MONOCYTES % (AUTO) 8.6 % (2-12); NEUTROPHILS # (AUTO) 2.8 X10'3 (1.8-7.7); NEUTROPHILS % (AUTO) 57.7 % (42-75); PLATELET COUNT 308 X10'3 (140-440); RED BLOOD COUNT 3.91 X10'6 (4.70-6.10); RED CELL DISTRIBUTION WIDTH 19.1 % (11.5-14.5); WHITE BLOOD COUNT 4.9 X10'3 (4.5-11.0)
[2021-03-06 06:42] LABS: ALANINE AMINOTRANSFERASE 23 U/L (12-78); ALBUMIN 2.2 G/DL (3.4-5.0); ALBUMIN/GLOBULIN RATIO 0.5 (1.1-1.5); ALKALINE PHOSPHATASE 135 IU/L (46-116); ANION GAP 6 (8-16); ASPARTATE AMINO TRANSFERASE 33 U/L (10-37); BILIRUBIN,TOTAL 0.6 MG/DL (0.1-1.0); BLOOD UREA NITROGEN 25 MG/DL (7-18); BUN/CREATININE RATIO 21.6 (5.4-32.0); CALCIUM 7.6 MG/DL (8.5-10.1); CHLORIDE 99 MMOL/L (99-107); CREATININE 1.16 MG/DL (0.60-1.10); GLUCOSE 112 MG/DL (70-104); MAGNESIUM 1.7 MG/DL (1.5-2.4); POTASSIUM 3.9 MMOL/L (3.5-5.1); SODIUM 139 MMOL/L (135-145); TOTAL CARBON DIOXIDE 34.1 MMOL/L (24-32); TOTAL PROTEIN 6.7 G/DL (6.4-8.2); eGFR 65 ML/MIN
--- NOTE | 2021-03-06 06:54 | NUR ---
Problems reprioritized. Patient report given, questions answered & plan of care reviewed with KLEVER AGUILA.
[2021-03-06 07:00] VITALS: BP 106/67
[2021-03-06 07:42] LABS: LARGE PLATELETS FEW; PLATELET ESTIMATE NORMAL
[2021-03-06 07:43] LABS: ANISOCYTOSIS 2+; MICROCYTOSIS 1+; POLYCHROMASIA FEW
[2021-03-06] MEDS: K and/or MAG REPLACEMENT MC SCH (08:00)
[2021-03-06] MEDS: lactobacillus rhamnosus 10,000 MMU CELLS/CAPSULE PO SCH (08:55)
[2021-03-06] MEDS: montelukast 10mg tablet PO SCH (08:56)
[2021-03-06] MEDS: CefTRIAXone 2gm/D5W 50ml BAG 50 ML IV SCH (08:56)
[2021-03-06] MEDS: furosemide 10 MG/1 ML 10ml inj IV SCH (08:56)
[2021-03-06] MEDS: aspirin 81mg tab.chew PO SCH (08:56)
[2021-03-06] MEDS: mineral oil/petrolatum, white cream 113gm jar TP SCH (08:57)
[2021-03-06] MEDS: levoTHYROXINE 25mcg tablet PO SCH (08:58)
[2021-03-06] MEDS: enoxaparin 60mg/0.6ml syringe SUBCUT SCH ×2 (08:59)
[2021-03-06] MEDS: budesonide 0.5mg/2ml UD nebule IH SCH (09:23)
--- NOTE | 2021-03-06 10:04 | NUR ---
Initial: Pt admit for acute/subacute CVA, CHF exacerbation, COPD exacerbation, acute renal failure (improving per MD note), and suicidal ideation with hx illicit drug use. Per [facility] notes pt with chronic BLE cellulitis and partial thickness venous ulcer x2 to LLE. Pt on a heart healthy diet documented with 75-100% PO intake throughout LOS, more consistently with 100% PO intake at breakfast and lunches. D/w dietary to send additional protein BIDBL for satiety and increased protein needs. LBM 03/05. Will continue to follow and monitor need for further nutrition intervention. Recommendations: 1) Continue heart healthy diet 2) Double eggs WB, double meat WL 3) Bowel care per rx 4) Scaled weight this admit; weekly scaled weights thereafter Addendum: 03/06/21 at [address] Amended: Links added.
[2021-03-06] MEDS ORDERED: ASPI81TA53 PO (10:17)
[2021-03-06] MEDS ORDERED: AMOX-580 PO (10:17)
[2021-03-06] MEDS ORDERED: APIX5TAB3 PO (10:17)
[2021-03-06] MEDS ORDERED: FURO40TA4 PO (10:17)
[2021-03-06] MEDS ORDERED: LEVO25TA7 PO (10:17)
[2021-03-06] MEDS ORDERED: LISI2.5T2 PO (10:17)
[2021-03-06] MEDS ORDERED: CARV3.12 PO (10:17)
--- NOTE | 2021-03-06 10:41 | NUR ---
Dr. Todd and nurse at bedside with patient. MD is OK to discharge. VSS, pt stable for discharge. Pt happy and excited to be leaving. Will continue to monitor.
--- NOTE | 2021-03-06 12:07 | NUR ---
Patient ok to discharge per MD orders. Patient was able to dress self and ambulate around the room with self. Wound pictures were taken, PIV was removed and all cords off. All discharge instructions were gone over and educated. All prescriptions were educated on and transmitted to Pharmacy at [facility]. Pt was given coupon for eliquis and is aware to follow up with PCP to have medications refilled and continued. Patient is to follow up regarding A1C at 6.7 and BLE wounds and edema. We will continue to monitor.
== END 2021-03-06 12:04 | disposition home or self-care (01) | DRG 45 ==
LOC: ER 15:58 → ED HOLD 03-02 05:07 → MED 3N 03-02 08:48
PROVIDERS: ADMIT Family Medicine; ATTEND Family Medicine
PROC: 5A09357 Assistance with Respiratory Ventilation, Less than 24 Consecutive Hours, Continuous Positive Airway Pressure (ICD-10-PCS; principal; 2021-03-02)
PROC: 5A09357 Assistance with Respiratory Ventilation, Less than 24 Consecutive Hours, Continuous Positive Airway Pressure (ICD-10-PCS; 2021-03-03)
PROC: 5A09357 Assistance with Respiratory Ventilation, Less than 24 Consecutive Hours, Continuous Positive Airway Pressure (ICD-10-PCS; 2021-03-04)
PROC: 5A09357 Assistance with Respiratory Ventilation, Less than 24 Consecutive Hours, Continuous Positive Airway Pressure (ICD-10-PCS; 2021-03-05)
DX: I63.40 Cerebral infarction due to embolism of unspecified cerebral artery (principal); J96.21 Acute and chronic respiratory failure with hypoxia; I50.23 Acute on chronic systolic (congestive) heart failure; N17.9 Acute kidney failure, unspecified; E11.22 Type 2 diabetes mellitus with diabetic chronic kidney disease; I51.3 Intracardiac thrombosis, not elsewhere classified; E66.01 Morbid (severe) obesity due to excess calories; I48.0 Paroxysmal atrial fibrillation; R45.851 Suicidal ideations; E03.9 Hypothyroidism, unspecified; L03.115 Cellulitis of right lower limb; L03.116 Cellulitis of left lower limb; Z20.822 Contact with and (suspected) exposure to COVID-19; R29.705 NIHSS score 5; F29 Unspecified psychosis not due to a substance or known physiological condition; I13.0 Hypertensive heart and chronic kidney disease with heart failure and stage 1 through stage 4 chronic kidney disease, or unspecified chronic kidney disease; J44.1 Chronic obstructive pulmonary disease with (acute) exacerbation; N18.9 Chronic kidney disease, unspecified; Z79.01 Long term (current) use of anticoagulants; Z79.82 Long term (current) use of aspirin; Z79.899 Other long term (current) drug therapy; Z59.0 Homelessness; Z68.38 Body mass index [BMI] 38.0-38.9, adult; Z91.030 Bee allergy status; Z90.49 Acquired absence of other specified parts of digestive tract; Z87.891 Personal history of nicotine dependence
CPT/HCPCS: 36415; 36600; 70450; 70551; 71045; 80053; 80305; 80320; 81001; 82803; 83735; 83880; 84439; 84443; 85008; 85018; 85025; 85610; 85730; 87081; 87635; 93005; 94640; 94660; 94760; 96360; 96361; 96372; 97161; 97530; 99285; C9803; G0378; J0696; J1200; J1630; J1650; J1940; J7030; J7626

== ENCOUNTER 2021-06-25 05:27 | Emergency (ER) | payer MEDICAID ==
[~2021-06-25] VITALS: Ht 177.8 cm; Wt 102.2 kg
[~2021-06-25 05:27] MED LIST changes: -ALBU8HFA PO; -AMIO200T61 PO; +AMIO200T67 PO; +APIX5TAB3 PO; +ASPI-1265 PO; -ASPI-611 PO; +CARV3.122 PO; -CARV3.1246 PO; -FURO-149 PO; +FURO40TA4 PO; +LISI2.5T14 PO; -LISI2.5T89 PO; -POTA20TA19 PO; -WARF3TAB56 PO; -ZOLP5TAB8 PO
[2021-06-25 05:32] VITALS: BP 122/90
== END 2021-06-25 06:05 | disposition home or self-care (01) ==
LOC: ER 05:28
DX: K42.9 Umbilical hernia without obstruction or gangrene (principal); R10.84 Generalized abdominal pain; R11.10 Vomiting, unspecified; J44.9 Chronic obstructive pulmonary disease, unspecified; E03.9 Hypothyroidism, unspecified; F15.90 Other stimulant use, unspecified, uncomplicated; Z91.030 Bee allergy status; Z79.82 Long term (current) use of aspirin; Z79.899 Other long term (current) drug therapy
CPT/HCPCS: 99281

== ENCOUNTER 2021-07-16 08:29 | Inpatient (IN) | payer MEDICAID ==
[~2021-07-16] VITALS: Ht 177.8 cm; Wt 103.2 kg
[2021-07-16 09:22] LABS: BASOPHILS % (AUTO) 0.2 % (0-1); EOSINOPHILS % (AUTO) 0 % (0-6); HEMATOCRIT 38.8 % (42.0-52.0); HEMOGLOBIN 12.5 g/dl (14.0-17.9); LYMPHOCYTES # (AUTO) 0.6 X10'3 (1.1-4.8); LYMPHOCYTES % (AUTO) 3.1 % (21-51); MEAN CORPUSCULAR HEMOGLOBIN 28.4 PG (27.0-31.0); MEAN CORPUSCULAR HGB CONC 32.3 g/dL (33.0-36.5); MEAN CORPUSCULAR VOLUME 87.9 FL (78-98); MEAN PLATELET VOLUME 6.7 FL (7.4-10.4); MONOCYTES # (AUTO) 0.5 X10'3 (0-0.9); MONOCYTES % (AUTO) 2.4 % (2-12); NEUTROPHILS # (AUTO) 18.2 X10'3 (1.8-7.7); NEUTROPHILS % (AUTO) 94.3 % (42-75); PLATELET COUNT 471 X10'3 (140-440); RED BLOOD COUNT 4.41 X10'6 (4.70-6.10); RED CELL DISTRIBUTION WIDTH 18.4 % (11.5-14.5); WHITE BLOOD COUNT 19.3 X10'3 (4.5-11.0)
[2021-07-16 09:30] LABS: D-DIMER 1.91 MG/L FEU (0-0.50)
[2021-07-16 09:37] LABS: ALANINE AMINOTRANSFERASE 36 U/L (12-78); ALBUMIN 2.3 G/DL (3.4-5.0); ALBUMIN/GLOBULIN RATIO 0.4 (1.1-1.5); ALKALINE PHOSPHATASE 279 IU/L (46-116); ANION GAP 11 (8-16); ASPARTATE AMINO TRANSFERASE 56 U/L (10-37); BILIRUBIN,TOTAL 1.4 MG/DL (0.1-1.0); BLOOD UREA NITROGEN 32 MG/DL (7-18); BUN/CREATININE RATIO 16.8 (5.4-32.0); CALCIUM 8.7 MG/DL (8.5-10.1); CHLORIDE 99 MMOL/L (99-107); GLUCOSE 82 MG/DL (70-104); POTASSIUM 4.3 MMOL/L (3.5-5.1); SODIUM 133 MMOL/L (135-145); TOTAL CARBON DIOXIDE 23.4 MMOL/L (24-32); TOTAL PROTEIN 7.5 G/DL (6.4-8.2); eGFR 37 ML/MIN
[2021-07-16 10:46] LABS: ANISOCYTOSIS 2+; PLATELET ESTIMATE INCREASED; POLYCHROMASIA 1+; TOTAL CELLS COUNTED 100; TOXIC GRANULATION 1+
[2021-07-16 10:50] LABS: HYPOCHROMASIA 1+; TARGET CELLS 1+; TOXIC VACUOLATION 1+
[2021-07-16] MEDS ORDERED: potassium chloride 10mEq ER tablet PO STA (10:58)
[2021-07-16] MEDS ORDERED: furosemide 10 MG/1 ML 10ml inj IV ONE (11:00)
[2021-07-16] MEDS ORDERED: vancomycin/NS 1 GM ADD-VANTAGE 250 ML IV ONE (11:00)
[2021-07-16] MEDS ORDERED: normal saline 1000ML IV soln IVB ONE (11:00)
[2021-07-16] MEDS ORDERED: acetaminophen 325mg tablet PO PRN ×2 (11:30)
[2021-07-16] MEDS ORDERED: potassium Cl 40MEQ/1/2NS 520ml 520 ML IV PRN ×2 (11:30)
[2021-07-16] MEDS ORDERED: potassium Cl 20 mEq SR tablet PO PRN ×2 (11:30)
[2021-07-16] MEDS ORDERED: magnesium 2GM in 50ml NS 50 ML IV PRN (11:30)
[2021-07-16] MEDS ORDERED: magnesium hydroxide 30ml (MOM) UD suspension PO PRN (11:30)
[2021-07-16] MEDS ORDERED: magnesium 4gm in 100ml NS 100 ML IV PRN (11:30)
[2021-07-16] MEDS ORDERED: PERFLUTREN PROTEIN-A MICROSPHR (Optison) 0.22 MG/ML 3ML VIAL IV PRN (11:30)
[2021-07-16] MEDS ORDERED: ondansetron/PF 4mg/2ml inj IV PRN (11:30)
[2021-07-16] MEDS ORDERED: POTA10TA19 PO (11:46)
[2021-07-16] MEDS ORDERED: vancomycin/NS 1 GM ADD-VANTAGE 250 ML X 1 DOSE IV ONE (12:25)
--- NOTE | 2021-07-16 13:12 | NUR ---
Pt with [employer] for VQ scan.
[2021-07-16] MEDS ORDERED: POTA20TA19 PO (14:43)
[2021-07-16] MEDS ORDERED: APIX5TAB3 PO (14:43)
[2021-07-16] MEDS ORDERED: LISI2.5T14 PO (14:43)
[2021-07-16] MEDS ORDERED: LEVO25TA7 PO (14:43)
[2021-07-16] MEDS ORDERED: ASPI-611 PO (14:43)
[2021-07-16] MEDS ORDERED: FURO40TA4 PO (14:43)
[2021-07-16] MEDS ORDERED: ASPI-920 PO (14:45)
--- NOTE | 2021-07-16 15:41 | NUR ---
Pt was reported to be drowsy in Ed with SBP 116, BP now 89- map 64 PAGER ID: [phone] MESSAGE: [id number] Van tovar- sbp 89- map 64 , drowsy, lethargic. please advise Willie AGUILA [phone]
[2021-07-16 15:45] LABS: CREATININE 1.82 MG/DL (0.60-1.10); eGFR 39 ML/MIN
[2021-07-16] MEDS ORDERED: cefepime 1GM/NS ADD-VANTAGE 100 ML IV SCH (15:49)
[2021-07-16] MEDS ORDERED: normal saline 1000ml 1,000 ML IVB ONE (15:50)
[2021-07-16 16:16] LABS: ABG BASE EXCESS -7.2 mmol/L (-2.0-2.0); ABG HCO3 16.9 mmol/L (22.0-26.0); ABG OXYGEN SATURATION 90.3 % (94-97); ABG PCO2 (T) 30.8 mmHg (35.0-48.0); ABG PO2 (T) 64.8 mmHg (75.0-100.0); ALLEN'S TEST POSITIVE; FMetHb 0.1 % (0.0-1.5); FO2Hb 89.3 % (94-97); PATIENT TEMPERATURE 37.4; TOTAL HEMOGLOBIN 12.3 G/dl (14.0-18.0)
[2021-07-16 16:20] LABS: URINE AMPHETAMINE SCREEN POSITIVE (Neg); URINE BARBITUATE SCREEN NEGATIVE (Neg); URINE BENZODIAZEPINES SCREEN NEGATIVE (Neg); URINE CANNABINOID SCREEN NEGATIVE (Neg); URINE COCAINE SCREEN NEGATIVE (Neg); URINE METHADONE SCREEN NEGATIVE (Neg); URINE OPIATE SCREEN NEGATIVE (Neg); URINE PHENCYCLIDINE SCREEN NEGATIVE (Neg)
[2021-07-16] MEDS: cefepime 1GM/NS ADD-VANTAGE 100 ML IV SCH (16:44)
[2021-07-16] MEDS: nicotine 14mg patch - 24hr TD SCH (16:45)
--- NOTE | 2021-07-16 16:49 | NUR ---
MD peter zacarias's time cghange togive cefepime now. BP improved with bolus -107/ 73 map 80, hr 107, ls no change.
--- NOTE | 2021-07-16 17:00 | NUR ---
Late entry assessment entered
--- NOTE | 2021-07-16 17:03 | NUR ---
Charge nurse reported she reviewed ABG results with MD Crane when I was on break. Urine tox positive for amphetmines.
[2021-07-16 18:00] VITALS: BP 88/54
--- NOTE | 2021-07-16 18:14 | NUR ---
pt sat up to eat dinner i. back in bed naked Addendum: 07/16/21 at 1818 by Willie Rinaldi RN covered pt's nakedness and resettled back in bed
--- NOTE | 2021-07-16 18:15 | NUR ---
Patient in room PCU 3026. I have received report from Willie AGUILA and had the opportunity to ask questions and assume patient care.
--- NOTE | 2021-07-16 18:20 | NUR ---
Problems reprioritized. Patient report given, questions answered & plan of care reviewed with Kaur AGUILA.
--- NOTE | 2021-07-16 19:43 | NUR ---
Page Sent PAGER ID: [phone] MESSAGE: RE: Anton Matamoros RM 1659S: Pt here for sepsis, CHF, COPD. BP 88/54 MAP 67. Received 3L fluid in past 24 hours. Holding IV Lasix. Does he need meds for BP support? Please advise. Thanks, Kaur [phone]
[2021-07-16] MEDS: docusate sod 100mg capsule PO SCH (19:54)
[2021-07-16] MEDS: apixaban 5mg tablet PO SCH (19:58)
[2021-07-16 20:00] VITALS: BP 88/58
[2021-07-16] MEDS ORDERED: enoxaparin 40mg/0.4ml syringe SQ SCH (20:00)
[2021-07-16] MEDS: carVEDilol 3.125mg tablet PO SCH (20:00)
[2021-07-16] MEDS: furosemide 10 MG/1 ML 10ml inj IV SCH (20:00)
[2021-07-16] MEDS ORDERED: apixaban 5mg tablet PO ONE (20:00)
--- NOTE | 2021-07-16 20:12 | NUR ---
Page Sent PAGER ID: [phone] MESSAGE: RE: Anton Matamoros [id number]: Manual BP 88/58 MAP 68. Pt asymptomatic. Will recheck in 1 hour. Kaur [phone]
[2021-07-16] MEDS ORDERED: bisacodyl 10mg suppository rectal RC STA (20:45)
--- NOTE | 2021-07-16 20:58 | NUR ---
Messaged MD about wrong pt for suppository. Disregard suppository order.
[2021-07-16] MEDS: diatr meglu/diatrizoate 30ml oral sol.-(3 dose) bottle PO SCH (21:38)
[2021-07-17] VITALS (7 sets, daily range): BP systolic 85–104; BP diastolic 57–61
[2021-07-17] MEDS: vancomycin/NS 1 GM ADD-VANTAGE 250 ML IV SCH ×2 (01:08→12:20)
--- NOTE | 2021-07-17 06:00 | NUR ---
Patient in room PCU 3026. I have received report from Kaur Galindo and had the opportunity to ask questions and assume patient care.
--- NOTE | 2021-07-17 06:08 | NUR ---
Problems reprioritized. Patient report given, questions answered & plan of care reviewed with Willie AGUILA.
[2021-07-17 06:57] LABS: BASOPHILS # (AUTO) 0.1 X10'3 (0-0.2); BASOPHILS % (AUTO) 0.3 % (0-1); EOSINOPHILS % (AUTO) 0 % (0-6); HEMATOCRIT 34.6 % (42.0-52.0); HEMOGLOBIN 11.1 g/dl (14.0-17.9); LYMPHOCYTES # (AUTO) 1.1 X10'3 (1.1-4.8); LYMPHOCYTES % (AUTO) 6.9 % (21-51); MEAN CORPUSCULAR HEMOGLOBIN 28.2 PG (27.0-31.0); MEAN CORPUSCULAR VOLUME 88.2 FL (78-98); MEAN PLATELET VOLUME 6.9 FL (7.4-10.4); MONOCYTES # (AUTO) 0.8 X10'3 (0-0.9); MONOCYTES % (AUTO) 4.8 % (2-12); PLATELET COUNT 420 X10'3 (140-440); RED BLOOD COUNT 3.92 X10'6 (4.70-6.10); RED CELL DISTRIBUTION WIDTH 18.5 % (11.5-14.5); WHITE BLOOD COUNT 15.9 X10'3 (4.5-11.0)
[2021-07-17 07:16] LABS: ALANINE AMINOTRANSFERASE 54 U/L (12-78); ALBUMIN 1.7 G/DL (3.4-5.0); ALBUMIN/GLOBULIN RATIO 0.4 (1.1-1.5); ALKALINE PHOSPHATASE 200 IU/L (46-116); ANION GAP 9 (8-16); ASPARTATE AMINO TRANSFERASE 63 U/L (10-37); BLOOD UREA NITROGEN 38 MG/DL (7-18); CHLORIDE 101 MMOL/L (99-107); CREATININE 1.81 MG/DL (0.60-1.10); GLUCOSE 104 MG/DL (70-104); MAGNESIUM 1.7 MG/DL (1.5-2.4); SODIUM 132 MMOL/L (135-145); TOTAL CARBON DIOXIDE 21.8 MMOL/L (24-32); TOTAL PROTEIN 6.1 G/DL (6.4-8.2); eGFR 39 ML/MIN
[2021-07-17] MEDS: lisinopril 2.5mg tablet PO SCH (08:00)
[2021-07-17] MEDS: aspirin 81mg, enteric-coated 1 TAB TABLET.DR PO SCH (08:34)
[2021-07-17] MEDS: docusate sod 100mg capsule PO SCH ×2 (08:34→20:00)
[2021-07-17] MEDS: nicotine 14mg patch - 24hr TD SCH (08:34)
[2021-07-17] MEDS: levoTHYROXINE 25mcg tablet PO SCH (08:34)
[2021-07-17] MEDS: apixaban 5mg tablet PO SCH ×2 (08:35→21:12)
[2021-07-17] MEDS: cefepime 1GM/NS ADD-VANTAGE 100 ML IV SCH ×2 (08:35→21:11)
[2021-07-17] MEDS: furosemide 10 MG/1 ML 10ml inj IV SCH ×3 (08:37→21:14)
[2021-07-17] MEDS: diatr meglu/diatrizoate 30ml oral sol.-(3 dose) bottle PO SCH ×2 (08:47→11:03)
[2021-07-17] MEDS: carVEDilol 3.125mg tablet PO SCH ×2 (09:30→21:11)
--- NOTE | 2021-07-17 10:25 | NUR ---
PT reports amb 300feet with walker, breaks, sbp 104
[2021-07-17] MEDS: mag hydrox/Alum hydrox/simeth 30ml oral suspension PO PRN (16:45)
--- NOTE | 2021-07-17 18:14 | NUR ---
paged md amaro regarding pt inability to obtain home cpap. no call back at shift change
--- NOTE | 2021-07-17 18:21 | NUR ---
Problems reprioritized. Patient report given, questions answered & plan of care reviewed with Jenny AGUILA.
--- NOTE | 2021-07-17 18:24 | NUR ---
Patient in room PCU 3026. I have received report from AYLA Tapia, and had the opportunity to ask questions and assume patient care.
[2021-07-17] MEDS: lactobacillus rhamnosus 10,000 MMU CELLS/CAPSULE PO SCH (20:00)
[2021-07-17] MEDS ORDERED: VANCOMYCIN LEVEL IV ONE (22:30)
[2021-07-18] MEDS: vancomycin/NS 1 GM ADD-VANTAGE 250 ML IV SCH (00:52)
[2021-07-18 03:00] VITALS: BP 87/44
[2021-07-18] MEDS: HYDROcodone/acetaminophen 10/325mg tab PO PRN ×2 (03:59→23:57)
[2021-07-18 06:00] VITALS: BP 90/68
--- NOTE | 2021-07-18 06:43 | NUR ---
Problems reprioritized. Patient report given, questions answered & plan of care reviewed with AYLA Sosa.
[2021-07-18 06:52] LABS: BASOPHILS % (AUTO) 0.5 % (0-1); EOSINOPHILS # (AUTO) 0.1 X10'3 (0-0.9); EOSINOPHILS % (AUTO) 0.6 % (0-6); HEMATOCRIT 36.1 % (42.0-52.0); HEMOGLOBIN 11.4 g/dl (14.0-17.9); LYMPHOCYTES # (AUTO) 0.8 X10'3 (1.1-4.8); MEAN CORPUSCULAR HEMOGLOBIN 28.6 PG (27.0-31.0); MEAN CORPUSCULAR HGB CONC 31.7 g/dL (33.0-36.5); MEAN CORPUSCULAR VOLUME 90.3 FL (78-98); MEAN PLATELET VOLUME 7.2 FL (7.4-10.4); MONOCYTES # (AUTO) 0.7 X10'3 (0-0.9); MONOCYTES % (AUTO) 8.1 % (2-12); NEUTROPHILS # (AUTO) 7.4 X10'3 (1.8-7.7); NEUTROPHILS % (AUTO) 81.8 % (42-75); PLATELET COUNT 423 X10'3 (140-440); RED BLOOD COUNT 3.99 X10'6 (4.70-6.10); RED CELL DISTRIBUTION WIDTH 18.7 % (11.5-14.5); WHITE BLOOD COUNT 9.1 X10'3 (4.5-11.0)
[2021-07-18 07:20] LABS: ALANINE AMINOTRANSFERASE 41 U/L (12-78); ALBUMIN 1.7 G/DL (3.4-5.0); ALBUMIN/GLOBULIN RATIO 0.4 (1.1-1.5); ALKALINE PHOSPHATASE 198 IU/L (46-116); ANION GAP 13 (8-16); ASPARTATE AMINO TRANSFERASE 53 U/L (10-37); BILIRUBIN,TOTAL 0.8 MG/DL (0.1-1.0); BLOOD UREA NITROGEN 49 MG/DL (7-18); BUN/CREATININE RATIO 26.2 (5.4-32.0); CHLORIDE 102 MMOL/L (99-107); CREATININE 1.87 MG/DL (0.60-1.10); GLUCOSE 108 MG/DL (70-104); MAGNESIUM 2.1 MG/DL (1.5-2.4); POTASSIUM 4.4 MMOL/L (3.5-5.1); SODIUM 134 MMOL/L (135-145); TOTAL CARBON DIOXIDE 19.5 MMOL/L (24-32); eGFR 37 ML/MIN
[2021-07-18 07:52] LABS: ANISOCYTOSIS 2+; BURR CELLS FEW; PLATELET ESTIMATE NORMAL
[2021-07-18 07:53] LABS: LARGE PLATELETS FEW
--- NOTE | 2021-07-18 07:57 | NUR ---
paged critical value PAGER ID: [phone] MESSAGE: room 3020I Anton Matamoros, critical lab value:Vanco Trough 34.2
[2021-07-18] MEDS: carVEDilol 3.125mg tablet PO SCH ×2 (08:00→20:00)
[2021-07-18] MEDS: lisinopril 2.5mg tablet PO SCH (08:00)
[2021-07-18] MEDS: nicotine 14mg patch - 24hr TD SCH (09:05)
[2021-07-18] MEDS: apixaban 5mg tablet PO SCH ×2 (09:05→20:49)
[2021-07-18] MEDS: docusate sod 100mg capsule PO SCH ×2 (09:05→20:49)
[2021-07-18] MEDS: lactobacillus rhamnosus 10,000 MMU CELLS/CAPSULE PO SCH ×2 (09:05→20:49)
[2021-07-18] MEDS: levoTHYROXINE 25mcg tablet PO SCH (09:07)
[2021-07-18] MEDS: aspirin 81mg, enteric-coated 1 TAB TABLET.DR PO SCH (09:07)
[2021-07-18] MEDS: cefepime 1GM/NS ADD-VANTAGE 100 ML IV SCH ×2 (09:08→20:49)
[2021-07-18 11:00] VITALS: BP 94/66
[2021-07-18] MEDS ORDERED: VANCOMYCIN LEVEL IV ONE (12:00)
[2021-07-18 15:00] VITALS: BP 91/65
[2021-07-18 18:00] VITALS: BP 83/54
[2021-07-18] MEDS: furosemide 10 MG/1 ML 10ml inj IV SCH (20:00)
[2021-07-18 22:00] VITALS: BP 93/72
--- NOTE | 2021-07-18 22:29 | NUR ---
Anton Matamoros [id number] Pt was unable to have his CPap brought in, can we set up BiPap for HS? Thank you
[2021-07-19] MEDS: diatr meglu/diatrizoate 30ml oral sol.-(3 dose) bottle PO SCH ×3 (01:50→10:30)
[2021-07-19 02:00] VITALS: BP 97/65
[2021-07-19] MEDS ORDERED: VANCOMYCIN LEVEL IV ONE (03:00)
--- NOTE | 2021-07-19 06:54 | NUR ---
Problems reprioritized. Patient report given, questions answered & plan of care reviewed with AYLA Ibanez.
[2021-07-19 07:13] LABS: BASOPHILS % (AUTO) 0.5 % (0-1); EOSINOPHILS # (AUTO) 0.1 X10'3 (0-0.9); EOSINOPHILS % (AUTO) 0.7 % (0-6); HEMATOCRIT 39.4 % (42.0-52.0); HEMOGLOBIN 12.7 g/dl (14.0-17.9); LYMPHOCYTES # (AUTO) 0.8 X10'3 (1.1-4.8); LYMPHOCYTES % (AUTO) 10.9 % (21-51); MEAN CORPUSCULAR HEMOGLOBIN 29.1 PG (27.0-31.0); MEAN CORPUSCULAR HGB CONC 32.2 g/dL (33.0-36.5); MEAN CORPUSCULAR VOLUME 90.2 FL (78-98); MEAN PLATELET VOLUME 7.2 FL (7.4-10.4); MONOCYTES # (AUTO) 0.5 X10'3 (0-0.9); MONOCYTES % (AUTO) 6.7 % (2-12); NEUTROPHILS # (AUTO) 6.1 X10'3 (1.8-7.7); NEUTROPHILS % (AUTO) 81.2 % (42-75); PLATELET COUNT 521 X10'3 (140-440); RED BLOOD COUNT 4.37 X10'6 (4.70-6.10); RED CELL DISTRIBUTION WIDTH 18.5 % (11.5-14.5); WHITE BLOOD COUNT 7.5 X10'3 (4.5-11.0)
[2021-07-19 07:39] LABS: ALANINE AMINOTRANSFERASE 28 U/L (12-78); ALBUMIN 1.9 G/DL (3.4-5.0); ALBUMIN/GLOBULIN RATIO 0.4 (1.1-1.5); ALKALINE PHOSPHATASE 235 IU/L (46-116); ANION GAP 10 (8-16); ASPARTATE AMINO TRANSFERASE 47 U/L (10-37); BILIRUBIN,TOTAL 0.8 MG/DL (0.1-1.0); BLOOD UREA NITROGEN 54 MG/DL (7-18); BUN/CREATININE RATIO 26.3 (5.4-32.0); CALCIUM 8.2 MG/DL (8.5-10.1); CHLORIDE 99 MMOL/L (99-107); CREATININE 2.05 MG/DL (0.60-1.10); GLUCOSE 97 MG/DL (70-104); MAGNESIUM 2.2 MG/DL (1.5-2.4); POTASSIUM 4.9 MMOL/L (3.5-5.1); SODIUM 131 MMOL/L (135-145); TOTAL CARBON DIOXIDE 21.6 MMOL/L (24-32); TOTAL PROTEIN 6.9 G/DL (6.4-8.2); VANCOMYCIN,RANDOM 24.5 UG/ML; eGFR 34 ML/MIN
[2021-07-19] MEDS: lactobacillus rhamnosus 10,000 MMU CELLS/CAPSULE PO SCH ×2 (07:40→11:11)
[2021-07-19] MEDS: levoTHYROXINE 25mcg tablet PO SCH ×2 (07:40→11:11)
[2021-07-19] MEDS: lisinopril 2.5mg tablet PO SCH (07:40)
[2021-07-19] MEDS: apixaban 5mg tablet PO SCH ×2 (07:40→11:11)
[2021-07-19] MEDS: aspirin 81mg, enteric-coated 1 TAB TABLET.DR PO SCH ×2 (07:40→11:11)
[2021-07-19] MEDS: docusate sod 100mg capsule PO SCH ×2 (07:40→11:10)
[2021-07-19] MEDS: carVEDilol 3.125mg tablet PO SCH ×2 (07:40→20:00)
[2021-07-19] MEDS: cefepime 1GM/NS ADD-VANTAGE 100 ML IV SCH ×2 (08:58→20:56)
[2021-07-19] MEDS: nicotine 14mg patch - 24hr TD SCH (08:58)
[2021-07-19] MEDS: furosemide 10 MG/1 ML 10ml inj IV SCH ×2 (08:59→20:58)
--- NOTE | 2021-07-19 10:48 | NUR ---
Pt off the floor for CT.
[2021-07-19 11:00] VITALS: BP 82/30
[2021-07-19] MEDS ORDERED: vancomycin/NS 1 GM ADD-VANTAGE 250 ML IV PRN (12:10)
[2021-07-19 15:00] VITALS: BP 92/52
[2021-07-19 18:00] VITALS: BP 110/94
--- NOTE | 2021-07-19 18:25 | NUR ---
Report given to Alma AGUILA.
[2021-07-19 22:00] VITALS: BP 96/58
[2021-07-20] MEDS ORDERED: Melatonin 3mg tablet PO ONE (01:00)
[2021-07-20 02:00] VITALS: BP 105/71
[2021-07-20] MEDS: VANCOMYCIN LEVEL IV SCH (03:00)
[2021-07-20] MEDS ORDERED: VANCOMYCIN LEVEL IV SCH (03:00)
[2021-07-20 06:00] VITALS: BP 100/68
--- NOTE | 2021-07-20 06:50 | NUR ---
Problems reprioritized. Patient report given, questions answered & plan of care reviewed with AYLA Fuentes.
[2021-07-20 07:00] LABS: BASOPHILS % (AUTO) 0.4 % (0-1); EOSINOPHILS % (AUTO) 0.6 % (0-6); HEMOGLOBIN 12.8 g/dl (14.0-17.9); LYMPHOCYTES # (AUTO) 0.8 X10'3 (1.1-4.8); LYMPHOCYTES % (AUTO) 11.1 % (21-51); MEAN CORPUSCULAR HEMOGLOBIN 28.7 PG (27.0-31.0); MEAN CORPUSCULAR VOLUME 89.7 FL (78-98); MEAN PLATELET VOLUME 7.1 FL (7.4-10.4); MONOCYTES # (AUTO) 0.5 X10'3 (0-0.9); MONOCYTES % (AUTO) 7.6 % (2-12); NEUTROPHILS # (AUTO) 5.7 X10'3 (1.8-7.7); NEUTROPHILS % (AUTO) 80.3 % (42-75); PLATELET COUNT 535 X10'3 (140-440); RED BLOOD COUNT 4.46 X10'6 (4.70-6.10); RED CELL DISTRIBUTION WIDTH 18.3 % (11.5-14.5); WHITE BLOOD COUNT 7.1 X10'3 (4.5-11.0)
[2021-07-20 07:20] LABS: ALANINE AMINOTRANSFERASE 26 U/L (12-78); ALBUMIN 1.9 G/DL (3.4-5.0); ALBUMIN/GLOBULIN RATIO 0.4 (1.1-1.5); ALKALINE PHOSPHATASE 257 IU/L (46-116); ANION GAP 9 (8-16); ASPARTATE AMINO TRANSFERASE 45 U/L (10-37); BILIRUBIN,TOTAL 0.8 MG/DL (0.1-1.0); BLOOD UREA NITROGEN 54 MG/DL (7-18); BUN/CREATININE RATIO 28.1 (5.4-32.0); CALCIUM 8.1 MG/DL (8.5-10.1); CHLORIDE 98 MMOL/L (99-107); CREATININE 1.92 MG/DL (0.60-1.10); GLUCOSE 95 MG/DL (70-104); POTASSIUM 4.6 MMOL/L (3.5-5.1); SODIUM 127 MMOL/L (135-145); TOTAL CARBON DIOXIDE 20.4 MMOL/L (24-32); TOTAL PROTEIN 6.8 G/DL (6.4-8.2); VANCOMYCIN,RANDOM 19.8 UG/ML; eGFR 36 ML/MIN
--- NOTE | 2021-07-20 07:33 | NUR ---
report was taken from the night nurse, patient was asleep, call light within reach.
[2021-07-20] MEDS: furosemide 10 MG/1 ML 10ml inj IV SCH ×2 (08:24→20:00)
[2021-07-20] MEDS: lactobacillus rhamnosus 10,000 MMU CELLS/CAPSULE PO SCH ×2 (08:27→20:17)
[2021-07-20] MEDS: carVEDilol 3.125mg tablet PO SCH ×2 (08:27→20:17)
[2021-07-20] MEDS: lisinopril 2.5mg tablet PO SCH (08:27)
[2021-07-20] MEDS: apixaban 5mg tablet PO SCH ×2 (08:27→20:17)
[2021-07-20] MEDS: nicotine 14mg patch - 24hr TD SCH (08:28)
[2021-07-20] MEDS: cefepime 1GM/NS ADD-VANTAGE 100 ML IV SCH ×2 (09:45→20:17)
[2021-07-20] MEDS: docusate sod 100mg capsule PO SCH ×2 (09:53→20:17)
[2021-07-20 11:00] VITALS: BP 95/60
[2021-07-20 15:00] VITALS: BP 90/66
--- NOTE | 2021-07-20 15:12 | NUR ---
patient order reviewed new ordered was devin Addendum: 07/20/21 at 1513 by Ysabel Sellers RN Amended: Links added.
--- NOTE | 2021-07-20 18:30 | NUR ---
Pt's brought in his C-Pap machine.
--- NOTE | 2021-07-20 18:30 | NUR ---
Patient in room PCU 3026. I have received report from AYLA Smith and had the opportunity to ask questions and assume patient care.
[2021-07-20 19:00] VITALS: BP 136/69
[2021-07-20] MEDS: Melatonin 3mg tablet PO SCH (20:17)
[2021-07-20 23:00] VITALS: BP 83/55
[2021-07-21] MEDS: VANCOMYCIN LEVEL IV SCH (03:00)
[2021-07-21 05:40] LABS: HEMOGLOBIN 13.3 g/dl (14.0-17.9); LYMPHOCYTES # (AUTO) 0.7 X10'3 (1.1-4.8); MONOCYTES # (AUTO) 0.8 X10'3 (0-0.9); NEUTROPHILS # (AUTO) 6.9 X10'3 (1.8-7.7); WHITE BLOOD COUNT 8.5 X10'3 (4.5-11.0)
[2021-07-21 05:43] LABS: BASOPHILS # (AUTO) 0.1 X10'3 (0-0.2); BASOPHILS % (AUTO) 0.7 % (0-1); EOSINOPHILS % (AUTO) 0.5 % (0-6); LYMPHOCYTES % (AUTO) 7.7 % (21-51); MEAN CORPUSCULAR HEMOGLOBIN 29.1 PG (27.0-31.0); MEAN CORPUSCULAR HGB CONC 32.4 g/dL (33.0-36.5); MEAN CORPUSCULAR VOLUME 89.8 FL (78-98); MEAN PLATELET VOLUME 7.1 FL (7.4-10.4); MONOCYTES % (AUTO) 9.7 % (2-12); NEUTROPHILS % (AUTO) 81.4 % (42-75); PLATELET COUNT 526 X10'3 (140-440); RED BLOOD COUNT 4.56 X10'6 (4.70-6.10); RED CELL DISTRIBUTION WIDTH 18.8 % (11.5-14.5)
[2021-07-21 05:53] LABS: ALANINE AMINOTRANSFERASE 27 U/L (12-78); ALBUMIN 1.9 G/DL (3.4-5.0); ALBUMIN/GLOBULIN RATIO 0.4 (1.1-1.5); ALKALINE PHOSPHATASE 279 IU/L (46-116); ANION GAP 10 (8-16); ASPARTATE AMINO TRANSFERASE 48 U/L (10-37); BILIRUBIN,TOTAL 0.6 MG/DL (0.1-1.0); BLOOD UREA NITROGEN 55 MG/DL (7-18); BUN/CREATININE RATIO 31.1 (5.4-32.0); CALCIUM 8.1 MG/DL (8.5-10.1); CHLORIDE 99 MMOL/L (99-107); CREATININE 1.77 MG/DL (0.60-1.10); GLUCOSE 94 MG/DL (70-104); POTASSIUM 4.3 MMOL/L (3.5-5.1); SODIUM 131 MMOL/L (135-145); TOTAL CARBON DIOXIDE 22.5 MMOL/L (24-32); TOTAL PROTEIN 6.8 G/DL (6.4-8.2); VANCOMYCIN,RANDOM 14.7 UG/ML; eGFR 40 ML/MIN
[2021-07-21 06:00] VITALS: BP 92/70
--- NOTE | 2021-07-21 06:16 | NUR ---
Problems reprioritized. Patient report given, questions answered & plan of care reviewed with AYLA Washburn.
--- NOTE | 2021-07-21 06:31 | NUR ---
Problems reprioritized. Patient report given, questions answered & plan of care reviewed with AYLA Damico.
[2021-07-21 07:43] LABS: ANISOCYTOSIS 2+; NUCLEATED RED BLOOD CELLS 2 /100WBC (0-0); PLATELET ESTIMATE INCREASED; TOTAL CELLS COUNTED 100
[2021-07-21] MEDS: nicotine 14mg patch - 24hr TD SCH (08:51)
[2021-07-21] MEDS: cefepime 1GM/NS ADD-VANTAGE 100 ML IV SCH ×2 (08:52→20:39)
[2021-07-21] MEDS: furosemide 10 MG/1 ML 10ml inj IV SCH ×2 (08:52→20:44)
[2021-07-21] MEDS: aspirin 81mg, enteric-coated 1 TAB TABLET.DR PO SCH (08:53)
[2021-07-21] MEDS: carVEDilol 3.125mg tablet PO SCH ×2 (08:53→20:00)
[2021-07-21] MEDS: lactobacillus rhamnosus 10,000 MMU CELLS/CAPSULE PO SCH ×2 (08:53→20:40)
[2021-07-21] MEDS: lisinopril 2.5mg tablet PO SCH (08:55)
[2021-07-21] MEDS: apixaban 5mg tablet PO SCH ×2 (08:56→20:40)
[2021-07-21] MEDS: levoTHYROXINE 25mcg tablet PO SCH (08:56)
[2021-07-21] MEDS: docusate sod 100mg capsule PO SCH ×2 (08:56→20:40)
[2021-07-21 11:00] VITALS: BP 87/61
[2021-07-21] MEDS ORDERED: vancomycin/NS 1 GM ADD-VANTAGE 250 ML IV ONE (14:15)
--- NOTE | 2021-07-21 14:17 | NUR ---
Initial: Pt admit for sepsis likely secondary to lower extremity cellulitis per H&P. Pt on a heart healthy diet with fluctuating PO intake, initially with average 50% PO intake and recently up to 75-100% PO intake, however noted pt with 0% PO intake at breakfast this morning. Per MD note pt A/O x 2 and seems to be confused, possibly impacting PO intake. LBM 07/19, receiving routine bowel care with additional PRN bowel care available. Will continue to follow closely and make recommendations as appropriate pending further trends in PO intake. Recommendations: 1) Continue heart healthy diet 2) Monitor need for ONS; consider Ensure Enlive IF PO intake declines; double protein with meals if good PO intake resumes 3) Routine bowel care 4) Scaled weight this admit; weekly scaled weights thereafter Addendum: 07/21/21 at [address] Amended: Links added.
[2021-07-21 15:00] VITALS: BP 129/70
[2021-07-21] MEDS: Melatonin 3mg tablet PO SCH (20:39)
[2021-07-21 22:00] VITALS: BP 101/68
[2021-07-22] MEDS: mag hydrox/Alum hydrox/simeth 30ml oral suspension PO PRN ×2 (01:49→06:51)
[2021-07-22 02:00] VITALS: BP 99/65
[2021-07-22 02:38] LABS: MAGNESIUM 1.8 MG/DL (1.5-2.4); VANCOMYCIN,RANDOM 19.8 UG/ML
[2021-07-22] MEDS: VANCOMYCIN LEVEL IV SCH (03:02)
--- NOTE | 2021-07-22 06:15 | NUR ---
Patient in room PCU 3026. I have received report from Halima AGUILA and had the opportunity to ask questions and assume patient care. Pt right side laying in bed, chest rising and falling evenly. saline locked. safety measures in place. no s/sx acute distress.
--- NOTE | 2021-07-22 06:25 | NUR ---
Problems reprioritized. Patient report given, questions answered & plan of care reviewed with Estefania AGUILA .
[2021-07-22 07:00] VITALS: BP 104/65
[2021-07-22] MEDS: lisinopril 2.5mg tablet PO SCH ×2 (08:00→09:03)
[2021-07-22] MEDS: nicotine 14mg patch - 24hr TD SCH (08:45)
[2021-07-22] MEDS: cefepime 1GM/NS ADD-VANTAGE 100 ML IV SCH (08:45)
[2021-07-22] MEDS: furosemide 10 MG/1 ML 10ml inj IV SCH (08:46)
[2021-07-22] MEDS: carVEDilol 3.125mg tablet PO SCH (09:01)
[2021-07-22] MEDS: lactobacillus rhamnosus 10,000 MMU CELLS/CAPSULE PO SCH (09:01)
[2021-07-22] MEDS: docusate sod 100mg capsule PO SCH (09:01)
[2021-07-22] MEDS: levoTHYROXINE 25mcg tablet PO SCH (09:01)
[2021-07-22] MEDS: aspirin 81mg, enteric-coated 1 TAB TABLET.DR PO SCH (09:01)
[2021-07-22] MEDS: apixaban 5mg tablet PO SCH (09:01)
[2021-07-22 09:19] LABS: LYMPHOCYTES # (AUTO) 0.8 X10'3 (1.1-4.8); MEAN CORPUSCULAR HEMOGLOBIN 28.1 PG (27.0-31.0); MEAN CORPUSCULAR HGB CONC 31.5 g/dL (33.0-36.5); MEAN CORPUSCULAR VOLUME 89.2 FL (78-98)
[2021-07-22 09:21] LABS: BASOPHILS % (AUTO) 0.5 % (0-1); EOSINOPHILS % (AUTO) 0.3 % (0-6); HEMATOCRIT 41.5 % (42.0-52.0); HEMOGLOBIN 13.1 g/dl (14.0-17.9); LYMPHOCYTES % (AUTO) 11.1 % (21-51); MONOCYTES # (AUTO) 0.8 X10'3 (0-0.9); NEUTROPHILS # (AUTO) 5.8 X10'3 (1.8-7.7); NEUTROPHILS % (AUTO) 77.1 % (42-75); PLATELET COUNT 537 X10'3 (140-440); RED BLOOD COUNT 4.65 X10'6 (4.70-6.10); RED CELL DISTRIBUTION WIDTH 18.6 % (11.5-14.5); WHITE BLOOD COUNT 7.6 X10'3 (4.5-11.0)
[2021-07-22 09:23] LABS: ALANINE AMINOTRANSFERASE 30 U/L (12-78); ALBUMIN 1.8 G/DL (3.4-5.0); ALBUMIN/GLOBULIN RATIO 0.4 (1.1-1.5); ALKALINE PHOSPHATASE 275 IU/L (46-116); ANION GAP 8 (8-16); ASPARTATE AMINO TRANSFERASE 49 U/L (10-37); BILIRUBIN,TOTAL 0.7 MG/DL (0.1-1.0); BLOOD UREA NITROGEN 46 MG/DL (7-18); BUN/CREATININE RATIO 35.1 (5.4-32.0); CALCIUM 7.5 MG/DL (8.5-10.1); CHLORIDE 101 MMOL/L (99-107); CREATININE 1.31 MG/DL (0.60-1.10); GLUCOSE 90 MG/DL (70-104); POTASSIUM 4.1 MMOL/L (3.5-5.1); SODIUM 136 MMOL/L (135-145); TOTAL CARBON DIOXIDE 26.7 MMOL/L (24-32); TOTAL PROTEIN 6.2 G/DL (6.4-8.2); eGFR 56 ML/MIN
[2021-07-22 09:59] LABS: NUCLEATED RED BLOOD CELLS 1 /100WBC (0-0); TOTAL CELLS COUNTED 100
[2021-07-22 10:00] LABS: ANISOCYTOSIS 2+; LARGE PLATELETS FEW; PLATELET ESTIMATE INCREASED
[2021-07-22 10:01] LABS: SMUDGE CELLS FEW
[2021-07-22 11:00] VITALS: BP 103/64
[2021-07-22] MEDS ORDERED: NICO-631 TD (12:22)
[2021-07-22] MEDS ORDERED: COR3.125T PO (12:22)
[2021-07-22] MEDS ORDERED: AMOX-580 PO (12:22)
--- NOTE | 2021-07-22 15:05 | NUR ---
Pt stable for discharge per MD order. Pt refused to allow nurse to take discharge pics of skin. "Im already dressed, and i want to go. no i dont want to take pics. " discharge instructions explained to pt. all questions answered. new rx escripted to [facility]. PIV discontinued. cannula intact. grab driver discontinued. belongings collected and sent with pt. pt wheeled to [facility] where he left in a private vehicle.
--- NOTE | 2021-07-23 09:00 | NUR ---
Boyd Cath discontinued per MD order/request. cannula intact.
--- NOTE | 2021-07-23 12:00 | NUR ---
Pt voided in large amount (light yellow urine) after rojas cath discontinuation.
== END 2021-07-22 15:05 | disposition home or self-care (01) | DRG 720 ==
LOC: ER 08:29 → UNDOADMIN 11:26 → ED HOLD 11:26 → PCU 3S 11:36 → ED HOLD 15:56 → PCU 3S 15:56
PROVIDERS: ADMIT Family Medicine; ATTEND Family Medicine
PROC: CB121ZZ Planar Nuclear Medicine Imaging of Lungs and Bronchi using Technetium 99m (Tc-99m) (ICD-10-PCS; principal; 2021-07-16)
DX: A41.9 Sepsis, unspecified organism (principal); J96.00 Acute respiratory failure, unspecified whether with hypoxia or hypercapnia; I50.23 Acute on chronic systolic (congestive) heart failure; I21.A1 Myocardial infarction type 2; I42.7 Cardiomyopathy due to drug and external agent; J18.9 Pneumonia, unspecified organism; I13.0 Hypertensive heart and chronic kidney disease with heart failure and stage 1 through stage 4 chronic kidney disease, or unspecified chronic kidney disease; I51.3 Intracardiac thrombosis, not elsewhere classified; S81.802A Unspecified open wound, left lower leg, initial encounter; Z20.822 Contact with and (suspected) exposure to COVID-19; L02.416 Cutaneous abscess of left lower limb; E03.9 Hypothyroidism, unspecified; I48.91 Unspecified atrial fibrillation; X58.XXXA Exposure to other specified factors, initial encounter; L03.116 Cellulitis of left lower limb; F17.210 Nicotine dependence, cigarettes, uncomplicated; T43.625A Adverse effect of amphetamines, initial encounter; R33.9 Retention of urine, unspecified; K52.9 Noninfective gastroenteritis and colitis, unspecified; N18.9 Chronic kidney disease, unspecified; J44.0 Chronic obstructive pulmonary disease with (acute) lower respiratory infection; Z91.030 Bee allergy status; Z79.899 Other long term (current) drug therapy; Z79.82 Long term (current) use of aspirin; Y93.89 Activity, other specified; Y92.89 Other specified places as the place of occurrence of the external cause; Y99.8 Other external cause status; Z79.01 Long term (current) use of anticoagulants; Z90.49 Acquired absence of other specified parts of digestive tract; Z71.6 Tobacco abuse counseling
CPT/HCPCS: 36415; 36600; 71045; 71275; 74176; 78582; 80053; 80202; 80305; 82565; 82803; 83605; 83735; 83880; 84145; 84484; 85007; 85008; 85018; 85025; 85379; 87040; 87635; 93005; 93306; 93970; 96365; 96375; 97161; 97530; 99285; A9539; A9540; C9803; G0378; J0692; J1940; J2405; J3370; J7030; Q9963

== ENCOUNTER 2021-08-10 21:09 | Inpatient (IN) | payer MEDICAID ==
[~2021-08-10] VITALS: Ht 177.8 cm; Wt 112.0 kg
[~2021-08-10 21:09] MED LIST changes: -AMIO200T67 PO; +AMOX-580 PO; -ASPI-1265 PO; +ASPI-920 PO; -CARV3.122 PO; +COR3.125T PO; +NICO-631 TD; +POTA20TA19 PO; +sevoflurane 250ml liquid IH ONE
[2021-08-10] MEDS ORDERED: pantoprazole 40 MG vial IV ONE (21:25)
[2021-08-10 22:39] LABS: MEAN PLATELET VOLUME 6.8 FL (7.4-10.4)
[2021-08-10 22:40] LABS: BASOPHILS % (AUTO) 0.5 % (0-1); EOSINOPHILS % (AUTO) 0 % (0-6); HEMATOCRIT 37.2 % (42.0-52.0); HEMOGLOBIN 12.4 g/dl (14.0-17.9); LYMPHOCYTES # (AUTO) 0.4 X10'3 (1.1-4.8); LYMPHOCYTES % (AUTO) 9.9 % (21-51); MEAN CORPUSCULAR HEMOGLOBIN 28.6 PG (27.0-31.0); MEAN CORPUSCULAR HGB CONC 33.4 g/dL (33.0-36.5); MEAN CORPUSCULAR VOLUME 85.8 FL (78-98); MONOCYTES # (AUTO) 0.7 X10'3 (0-0.9); MONOCYTES % (AUTO) 15.5 % (2-12); NEUTROPHILS # (AUTO) 3.3 X10'3 (1.8-7.7); NEUTROPHILS % (AUTO) 74.1 % (42-75); PLATELET COUNT 465 X10'3 (140-440); RED BLOOD COUNT 4.34 X10'6 (4.70-6.10); RED CELL DISTRIBUTION WIDTH 17.5 % (11.5-14.5); WHITE BLOOD COUNT 4.5 X10'3 (4.5-11.0)
[2021-08-10 22:52] LABS: ALANINE AMINOTRANSFERASE 23 U/L (12-78); ALBUMIN 1.8 G/DL (3.4-5.0); ALBUMIN/GLOBULIN RATIO 0.3 (1.1-1.5); ALKALINE PHOSPHATASE 258 IU/L (46-116); ANION GAP 8 (8-16); ASPARTATE AMINO TRANSFERASE 59 U/L (10-37); BILIRUBIN,TOTAL 1.3 MG/DL (0.1-1.0); BLOOD UREA NITROGEN 21 MG/DL (7-18); BUN/CREATININE RATIO 13.9 (5.4-32.0); CALCIUM 8.3 MG/DL (8.5-10.1); CHLORIDE 101 MMOL/L (99-107); CREATININE 1.51 MG/DL (0.60-1.10); GLUCOSE 103 MG/DL (70-104); LIPASE < 50 U/L (73-393); POTASSIUM 4.2 MMOL/L (3.5-5.1); SODIUM 140 MMOL/L (135-145); TOTAL CARBON DIOXIDE 31.1 MMOL/L (24-32); eGFR 48 ML/MIN
[2021-08-10] MEDS ORDERED: human prothrombin complex-PCC 80 ML IV ONE (23:25)
[2021-08-10 23:38] LABS: PARTIAL THROMBOPLASTIN TIME 29 SECONDS (22-32)
[2021-08-10] MEDS ORDERED: fentaNYL /PF 50mcg/ml 5ml ampule ONE (23:57)
[2021-08-10] MEDS ORDERED: midazolam 1 mg/ML 2ml injection ONE (23:57)
[2021-08-11] VITALS (21 sets, daily range): BP systolic 81–120; BP diastolic 50–112
[2021-08-11] MEDS ORDERED: LIDOcaine 1% (10mg/ml) 2ml vial ONE (00:01)
[2021-08-11 00:02] LABS: TOTAL CELLS COUNTED 100
[2021-08-11 00:04] LABS: PLATELET ESTIMATE INCREASED
[2021-08-11 00:05] LABS: ANISOCYTOSIS 2+
[2021-08-11] MEDS ORDERED: ePHEDrine 50MG/ML INJ. ONE (00:06)
[2021-08-11] MEDS ORDERED: etomidate 2mg/ml inj. ONE ×2 (00:06→12:00)
[2021-08-11] MEDS ORDERED: LIDOcaine 2% (20mg/ml) 5ml vial ONE (00:06)
[2021-08-11] MEDS ORDERED: rocuronium 10mg/ml inj IV ONE ×3 (00:06→12:00)
[2021-08-11] MEDS ORDERED: phenylephrine 10mg/ml inj. ONE (00:07)
[2021-08-11] MEDS ORDERED: epiNEPHrine 0.1mg/ml 10ml syringe ONE (00:07)
[2021-08-11] MEDS ORDERED: fentaNYL/PF 50MCG/1 ML 2ML syringe IV PRN (00:25)
[2021-08-11] MEDS ORDERED: midazolam 1 mg/ML 2ml injection IV ONE (00:25)
[2021-08-11] MEDS ORDERED: midazolam 100mg in NS 100ml 100 ML IV PRN ×2 (00:25→11:39)
[2021-08-11] MEDS ORDERED: ipratropium/albuterol 3ml nebule NEB PRN (00:25)
[2021-08-11] MEDS ORDERED: ondansetron/PF 4mg/2ml inj IV PRN (00:30)
[2021-08-11] MEDS ORDERED: morphine 2 MG/ML inj. syringe IV PRN (00:30)
[2021-08-11] MEDS ORDERED: potassium Cl 20mEq/100mL bag 100 ML IV PRN (00:30)
[2021-08-11] MEDS ORDERED: acetaminophen 325mg tablet PO PRN (00:30)
[2021-08-11] MEDS ORDERED: magnesium 2GM in 50ml NS 50 ML IV PRN (00:30)
[2021-08-11] MEDS ORDERED: potassium Cl 40MEQ/1/2NS 520ml 520 ML IV PRN (00:30)
[2021-08-11] MEDS ORDERED: potassium CL 10mEq/100ml bag 100 ML IV PRN (00:30)
[2021-08-11] MEDS ORDERED: MESSAGE TO NURSING PO ONE ×5 (00:30→10:00)
[2021-08-11] MEDS ORDERED: magnesium 4gm in 100ml NS 100 ML IV PRN (00:30)
[2021-08-11] MEDS ORDERED: potassium Cl 20 mEq SR tablet PO PRN ×3 (00:30)
--- NOTE | 2021-08-11 00:35 | NUR ---
pt to or
[2021-08-11 01:41] LABS: HEMOGLOBIN A1C 5.8 % (4.5-6.2)
[2021-08-11 01:52] LABS: ABG BASE EXCESS 6.8 mmol/L (-2.0-2.0); ABG HCO3 30.3 mmol/L (22.0-26.0); ABG OXYGEN SATURATION 99.7 % (94-97); ABG PCO2 (T) 41.8 mmHg (35.0-48.0); ABG PO2 (T) 407.3 mmHg (75.0-100.0); FCOHb 0.1 % (0.0-3.9); FMetHb 0.4 % (0.0-1.5); FO2Hb 99.2 % (94-97); PATIENT TEMPERATURE 38.4; TOTAL HEMOGLOBIN 11.9 G/dl (14.0-18.0)
[2021-08-11] MEDS ORDERED: dextrose 5%-lactated ringers 1,000 ML IV SCH (02:25)
[2021-08-11 03:20] LABS: ABG BASE EXCESS 2.6 mmol/L (-2.0-2.0); ABG HCO3 27.4 mmol/L (22.0-26.0); ABG OXYGEN SATURATION 98.8 % (94-97); ABG PCO2 (T) 43.6 mmHg (35.0-48.0); FCOHb 0.6 % (0.0-3.9); FMetHb 0.3 % (0.0-1.5); FO2Hb 97.9 % (94-97); PATIENT TEMPERATURE 37.3; PEEP 5 cm H2O; RESPIRATORY RATE 12 b/min; TIDAL VOLUME 600 mL; TOTAL HEMOGLOBIN 12.6 G/dl (14.0-18.0)
[2021-08-11] MEDS: FENTANYL-0.9 % NACL/PF 100 ML IV PRN ×4 (04:02→21:55)
[2021-08-11 04:08] LABS: BASOPHILS % (AUTO) 0.5 % (0-1); EOSINOPHILS % (AUTO) 0 % (0-6); HEMATOCRIT 36.2 % (42.0-52.0); HEMOGLOBIN 11.8 g/dl (14.0-17.9); LYMPHOCYTES # (AUTO) 0.7 X10'3 (1.1-4.8); MEAN CORPUSCULAR HEMOGLOBIN 28.2 PG (27.0-31.0); MEAN CORPUSCULAR HGB CONC 32.5 g/dL (33.0-36.5); MEAN CORPUSCULAR VOLUME 86.8 FL (78-98); MEAN PLATELET VOLUME 7.2 FL (7.4-10.4); MONOCYTES # (AUTO) 0.5 X10'3 (0-0.9); MONOCYTES % (AUTO) 13.9 % (2-12); NEUTROPHILS # (AUTO) 2.4 X10'3 (1.8-7.7); NEUTROPHILS % (AUTO) 66.6 % (42-75); PLATELET COUNT 430 X10'3 (140-440); RED BLOOD COUNT 4.17 X10'6 (4.70-6.10); RED CELL DISTRIBUTION WIDTH 17.4 % (11.5-14.5); WHITE BLOOD COUNT 3.6 X10'3 (4.5-11.0)
[2021-08-11 04:12] LABS: PARTIAL THROMBOPLASTIN TIME 29 SECONDS (22-32)
[2021-08-11 04:14] LABS: GLUCOSE 100 MG/DL (70-104)
[2021-08-11 04:15] LABS: ALANINE AMINOTRANSFERASE 21 U/L (12-78); ALBUMIN 1.6 G/DL (3.4-5.0); ALBUMIN/GLOBULIN RATIO 0.3 (1.1-1.5); ALKALINE PHOSPHATASE 222 IU/L (46-116); ANION GAP 8 (8-16); ASPARTATE AMINO TRANSFERASE 50 U/L (10-37); BILIRUBIN,TOTAL 1.3 MG/DL (0.1-1.0); BLOOD UREA NITROGEN 22 MG/DL (7-18); BUN/CREATININE RATIO 16.9 (5.4-32.0); CALCIUM 7.6 MG/DL (8.5-10.1); CHLORIDE 104 MMOL/L (99-107); POTASSIUM 3.3 MMOL/L (3.5-5.1); SODIUM 141 MMOL/L (135-145); TOTAL CARBON DIOXIDE 29.1 MMOL/L (24-32); TOTAL PROTEIN 6.3 G/DL (6.4-8.2); eGFR 57 ML/MIN
[2021-08-11] MEDS: piperacillin/tazo 3.375gm/50ml 50 ML IV SCH ×3 (05:45→16:11)
--- NOTE | 2021-08-11 06:30 | NUR ---
Patient in room CICU 2009. I have received report from Meseret AGUILA and had the opportunity to ask questions and assume patient care.
[2021-08-11 08:30] LABS: MAGNESIUM 1.3 MG/DL (1.5-2.4); PHOSPHORUS 3.9 MG/DL (2.3-4.5)
[2021-08-11 09:23] LABS: TOTAL CELLS COUNTED 100
[2021-08-11 09:24] LABS: ANISOCYTOSIS 1+; PLATELET ESTIMATE NORMAL
[2021-08-11] MEDS ORDERED: dextrose 50%-water 50ml dispensing syringe IV PRN (10:00)
[2021-08-11] MEDS ORDERED: dextrose 50%-water 50ml dispensing syringe IV ONE (10:02)
[2021-08-11] MEDS: dextrose 50%-water 50ml dispensing syringe IV PRN ×2 (10:07→12:09)
[2021-08-11] MEDS: potassium Cl 40MEQ/250ML bag 250 ML IV PRN (10:08)
[2021-08-11] MEDS ORDERED: metoprolol tartrate 1mg/ml inj IV ONE ×3 (10:40→15:45)
[2021-08-11] MEDS ORDERED: normal saline 1000ml 1,000 ML IV ONE ×2 (11:20)
[2021-08-11] MEDS ORDERED: normal saline 1000ml 1,000 ML IV SCH (11:20)
[2021-08-11] MEDS: NORepinephrine 8mg/ 250ml NS 250 ML IV SCH ×3 (11:44→23:17)
--- NOTE | 2021-08-11 11:55 | NUR ---
Initial: Pt presented with hematemesis with c/o abdominal pain around the area of umbilical hernia, admit for GIB and surgical intervention for incarcerated strangulated umbilical hernia seen on CT per ED report. Pt noted to be COVID positive per EMR. Pt to OR today, per OR report found to have ischemic small bowel in hernia sac; s/p exploratory laparotomy, small bowel resection, and hernia repair. Pt remains intubated post-op, currently NPO. Pt would benefit from nutrition support if expected prolonged intubation or prolonged NPO status following extubation pending return of bowel function post-op, see recommendations below. Noted pt with T2DM per EMR, well controlled with A1c 5.8%, DM education not warranted at this time. Will continue to follow closely. Recommendations: 1) IF TF, continuous Vital AF with goal rate of 75 mL/hr with additional 115 mL water flush Q4H 2) IF TPN, 2:1 Clinimix-E 03/11 with goal rate of 95 mL/hr with 100 mL 20% intralipids to run for 12 hours/day at 8.33 mL/hr. In total to provide 2380 mL total volume/day, 2206 kcal, 114 g protein, 456 g dextrose (3.98 mg/kg/min dext loading), and 20 g lipids 3) IF nutrition support, prealbumin and TG q Monday/; daily scaled wts 4) PO diet advancement to low fiber/low residue as medically indicated following extubation 5) Bowel care per MD post-op Addendum: 08/11/21 at [address] Amended: Links added.
[2021-08-11] MEDS ORDERED: sodium chloride inj. 154 MEQ in Dextrose 10%-water IV solution 961.5 ML IV SCH (12:25)
[2021-08-11] MEDS: Dextrose 10%-water IV solution 1,000 ML IV SCH (12:36)
[2021-08-11] MEDS ORDERED: CARV3.122 PO (14:41)
[2021-08-11] MEDS: levoTHYROXINE sod inj. 100mcg/5 ml vial IV SCH (15:11)
[2021-08-11] MEDS: acetaminophen 1,000mg/100ml IV 100 ML IV PRN (16:10)
[2021-08-11] MEDS: normal saline 1000ml 1,000 ML IV SCH (17:24)
[2021-08-11] MEDS ORDERED: albumin (Human) 5% 250ml 250 ML IV ONE (18:00)
--- NOTE | 2021-08-11 18:22 | NUR ---
Problems reprioritized. Patient report given, questions answered & plan of care reviewed with Meseret AGUILA. Levophed increased to 0.04 mcg/kg/min. Dr. Ramírez notified. Orders received for 5%Albumin.
[2021-08-11 20:14] LABS: MAGNESIUM 2.5 MG/DL (1.5-2.4); POTASSIUM 3.9 MMOL/L (3.5-5.1)
[2021-08-12] VITALS (24 sets, daily range): BP systolic 95–130; BP diastolic 49–85
[2021-08-12] MEDS: acetaminophen 1,000mg/100ml IV 100 ML IV PRN (00:38)
[2021-08-12] MEDS: piperacillin/tazo 3.375gm/50ml 50 ML IV SCH ×4 (00:38→23:58)
[2021-08-12] MEDS: mineral oil/petrolatum ophthal oint EACHEYE SCH ×4 (02:38→20:35)
[2021-08-12] MEDS: normal saline 1000ml 1,000 ML IV SCH ×3 (03:03→23:31)
[2021-08-12] MEDS: NORepinephrine 8mg/ 250ml NS 250 ML IV SCH ×3 (03:04→15:28)
[2021-08-12 03:06] LABS: BASOPHILS % (AUTO) 0.4 % (0-1); EOSINOPHILS # (AUTO) 0.2 X10'3 (0-0.9); EOSINOPHILS % (AUTO) 2.1 % (0-6); HEMATOCRIT 35.9 % (42.0-52.0); HEMOGLOBIN 11.6 g/dl (14.0-17.9); LYMPHOCYTES # (AUTO) 0.7 X10'3 (1.1-4.8); LYMPHOCYTES % (AUTO) 9.5 % (21-51); MEAN CORPUSCULAR HEMOGLOBIN 28.2 PG (27.0-31.0); MEAN CORPUSCULAR HGB CONC 32.4 g/dL (33.0-36.5); MEAN PLATELET VOLUME 7.1 FL (7.4-10.4); MONOCYTES # (AUTO) 0.7 X10'3 (0-0.9); MONOCYTES % (AUTO) 10.1 % (2-12); NEUTROPHILS # (AUTO) 5.7 X10'3 (1.8-7.7); NEUTROPHILS % (AUTO) 77.9 % (42-75); PLATELET COUNT 420 X10'3 (140-440); RED BLOOD COUNT 4.13 X10'6 (4.70-6.10); RED CELL DISTRIBUTION WIDTH 18.1 % (11.5-14.5); WHITE BLOOD COUNT 7.3 X10'3 (4.5-11.0)
[2021-08-12 03:19] LABS: PARTIAL THROMBOPLASTIN TIME 35 SECONDS (22-32)
[2021-08-12 03:20] LABS: ABG BASE EXCESS -1.3 mmol/L (-2.0-2.0); ABG HCO3 24.4 mmol/L (22.0-26.0); ABG OXYGEN SATURATION 97.2 % (94-97); ABG PCO2 (T) 44.8 mmHg (35.0-48.0); ABG PO2 (T) 100.8 mmHg (75.0-100.0); ALLEN'S TEST POSITIVE; FCOHb 0.3 % (0.0-3.9); FMetHb 0.4 % (0.0-1.5); FO2Hb 96.5 % (94-97); PATIENT TEMPERATURE 37.2; PEEP 5 cm H2O; RESPIRATORY RATE 12 b/min; TIDAL VOLUME 600 mL; TOTAL HEMOGLOBIN 12.5 G/dl (14.0-18.0)
[2021-08-12 03:41] LABS: ALANINE AMINOTRANSFERASE 14 U/L (12-78); ALBUMIN 1.6 G/DL (3.4-5.0); ALBUMIN/GLOBULIN RATIO 0.4 (1.1-1.5); ALKALINE PHOSPHATASE 155 IU/L (46-116); ANION GAP 5 (8-16); ASPARTATE AMINO TRANSFERASE 27 U/L (10-37); BILIRUBIN,TOTAL 1.2 MG/DL (0.1-1.0); BLOOD UREA NITROGEN 23 MG/DL (7-18); BUN/CREATININE RATIO 13.9 (5.4-32.0); CHLORIDE 106 MMOL/L (99-107); CREATININE 1.66 MG/DL (0.60-1.10); GLUCOSE 104 MG/DL (70-104); MAGNESIUM 2.3 MG/DL (1.5-2.4); PHOSPHORUS 3.3 MG/DL (2.3-4.5); POTASSIUM 3.6 MMOL/L (3.5-5.1); SODIUM 139 MMOL/L (135-145); TOTAL CARBON DIOXIDE 28.1 MMOL/L (24-32); TOTAL PROTEIN 5.8 G/DL (6.4-8.2); eGFR 43 ML/MIN
[2021-08-12 04:53] LABS: TOTAL CELLS COUNTED 100
[2021-08-12 04:54] LABS: ANISOCYTOSIS 2+; PLATELET ESTIMATE NORMAL
[2021-08-12] MEDS: FENTANYL-0.9 % NACL/PF 100 ML IV PRN ×3 (04:55→21:03)
--- NOTE | 2021-08-12 06:30 | NUR ---
Patient in room CICU 2009. I have received report from Meseret AGUILA and had the opportunity to ask questions and assume patient care.
[2021-08-12] MEDS: levoTHYROXINE sod inj. 100mcg/5 ml vial IV SCH (08:13)
[2021-08-12] MEDS: Dextrose 10%-water IV solution 1,000 ML IV SCH (08:14)
[2021-08-12] MEDS ORDERED: albumin (Human) 5% 250ml 250 ML IV ONE (11:20)
[2021-08-12] MEDS ORDERED: levoTHYROXINE sod inj. 100mcg/5 ml vial IV ONE (11:20)
[2021-08-12] MEDS: pantoprazole 40 MG vial IV SCH (11:49)
[2021-08-12] MEDS: furosemide 40mg/4ml inj IV SCH (12:07)
[2021-08-12] MEDS ORDERED: Dextrose 10%-water IV solution 1,000 ML IV PRN (14:15)
--- NOTE | 2021-08-12 14:39 | NUR ---
TPN/malnutrition consults: Pt reports 34 lb or more wt loss with decreased appetite per malnutrition risk screen with RN. Unable to obtain information from pt at this time as pt remains intubated. Current documented wt in EMR isn't scaled and no wt hx in EMR. Pt with no documented significant decrease in muscle strength though with BLE 3+ edema. Pt currently lacks a minimum of two criteria for malnutrition though will continue to monitor qualifying criteria. MD agrees for pt to start on TPN given pt likely to have prolonged NPO status. Pt with a central line in place per RN. TPN recommendations have been d/w clinical pharmacist. okays dextrose to be discontinued with initiation of nutrition. Noted pt with a low Joe of 12, pt with a surgical wound to abdomen. Will continue to follow closely. Recommendations: 1) Continuous 2:1 Clinimix-E 03/11 with goal rate of 95 mL/hr with 100 mL 20% intralipids to run for 12 hours/day at 8.33 mL/hr. In total to provide 2380 mL total volume/day, 2206 kcal, 114 g protein, 456 g dextrose (3.98 mg/kg/min dext loading), and 20 g lipids 3) Prealbumin and TG q Monday/; daily scaled wts 4) PO diet advancement to low fiber/low residue as medically indicated following extubation 5) Bowel care per MD post-op Addendum: 08/12/21 at [address] Amended: Links added.
[2021-08-12] MEDS: NORepinephrine inj. 32 MG in normal saline 250ml IV soln 218 ML IV SCH (16:40)
--- NOTE | 2021-08-12 18:28 | NUR ---
Problems reprioritized. Patient report given, questions answered & plan of care reviewed with Rafael AGUILA.
--- NOTE | 2021-08-12 18:30 | NUR ---
Patient in room CICU 2009. I have received report from Aletha AGUILA and had the opportunity to ask questions and assume patient care.
[2021-08-12] MEDS ORDERED: ZINC/COPPER/MANGANESE/SELENIUM 1 ML, chromic chloride inj. 10 MCG in AA 5 %/CALCIUM/LYT... IV SCH (20:00)
[2021-08-12] MEDS: fat emulsion 20% inj. 100 ML IV SCH (20:34)
[2021-08-12] MEDS: apixaban 5mg tablet PO SCH (20:34)
[2021-08-13] VITALS (24 sets, daily range): BP systolic 100–135; BP diastolic 70–89
[2021-08-13] MEDS: NORepinephrine inj. 32 MG in normal saline 250ml IV soln 218 ML IV SCH ×2 (00:58→17:22)
[2021-08-13] MEDS: mineral oil/petrolatum ophthal oint EACHEYE SCH ×4 (02:18→20:17)
[2021-08-13 02:33] LABS: BASOPHILS % (AUTO) 0.4 % (0-1); EOSINOPHILS # (AUTO) 0.1 X10'3 (0-0.9); MEAN CORPUSCULAR HGB CONC 31.5 g/dL (33.0-36.5); MONOCYTES # (AUTO) 0.8 X10'3 (0-0.9); MONOCYTES % (AUTO) 19.1 % (2-12); NEUTROPHILS # (AUTO) 2.7 X10'3 (1.8-7.7); PLATELET COUNT 411 X10'3 (140-440)
[2021-08-13 02:35] LABS: EOSINOPHILS % (AUTO) 3.5 % (0-6); HEMATOCRIT 36.1 % (42.0-52.0); HEMOGLOBIN 11.4 g/dl (14.0-17.9); LYMPHOCYTES # (AUTO) 0.5 X10'3 (1.1-4.8); LYMPHOCYTES % (AUTO) 12.5 % (21-51); MEAN CORPUSCULAR HEMOGLOBIN 28.1 PG (27.0-31.0); MEAN CORPUSCULAR VOLUME 89.3 FL (78-98); MEAN PLATELET VOLUME 7.1 FL (7.4-10.4); NEUTROPHILS % (AUTO) 64.5 % (42-75); RED BLOOD COUNT 4.04 X10'6 (4.70-6.10); RED CELL DISTRIBUTION WIDTH 18.4 % (11.5-14.5); WHITE BLOOD COUNT 4.1 X10'3 (4.5-11.0)
[2021-08-13 02:42] LABS: PARTIAL THROMBOPLASTIN TIME 39 SECONDS (22-32)
[2021-08-13 02:53] LABS: ALANINE AMINOTRANSFERASE 16 U/L (12-78); ALBUMIN 1.8 G/DL (3.4-5.0); ALBUMIN/GLOBULIN RATIO 0.4 (1.1-1.5); ALKALINE PHOSPHATASE 150 IU/L (46-116); ANION GAP 7 (8-16); ASPARTATE AMINO TRANSFERASE 19 U/L (10-37); BILIRUBIN,TOTAL 0.9 MG/DL (0.1-1.0); BLOOD UREA NITROGEN 21 MG/DL (7-18); BUN/CREATININE RATIO 15.1 (5.4-32.0); CALCIUM 6.8 MG/DL (8.5-10.1); CHLORIDE 109 MMOL/L (99-107); CREATININE 1.39 MG/DL (0.60-1.10); GLUCOSE 123 MG/DL (70-104); MAGNESIUM 1.8 MG/DL (1.5-2.4); PHOSPHORUS 2.7 MG/DL (2.3-4.5); POTASSIUM 3.4 MMOL/L (3.5-5.1); PREALBUMIN 5.4 MG/DL (19-36); SODIUM 143 MMOL/L (135-145); TOTAL CARBON DIOXIDE 26.9 MMOL/L (24-32); TOTAL PROTEIN 6.1 G/DL (6.4-8.2); TRIGLYCERIDES 61 MG/DL (20-135); VANCOMYCIN,RANDOM 11.6 UG/ML; eGFR 53 ML/MIN
[2021-08-13] MEDS ORDERED: VANCOMYCIN LEVEL IV SCH (03:00)
[2021-08-13 03:57] LABS: ABG BASE EXCESS -1.9 mmol/L (-2.0-2.0); ABG HCO3 24.5 mmol/L (22.0-26.0); ABG OXYGEN SATURATION 95.5 % (94-97); ABG PCO2 (T) 50.5 mmHg (35.0-48.0); ABG PO2 (T) 89.7 mmHg (75.0-100.0); FCOHb 0.4 % (0.0-3.9); FMetHb 0.4 % (0.0-1.5); FO2Hb 94.7 % (94-97); PATIENT TEMPERATURE 38.1; PEEP 5 cm H2O; RESPIRATORY RATE 12 b/min; TIDAL VOLUME 600 mL; TOTAL HEMOGLOBIN 12.2 G/dl (14.0-18.0)
[2021-08-13 04:54] LABS: TOTAL CELLS COUNTED 100
[2021-08-13 04:55] LABS: ANISOCYTOSIS 2+; PLATELET ESTIMATE NORMAL
[2021-08-13] MEDS: potassium Cl 40MEQ/250ML bag 250 ML IV PRN (05:12)
--- NOTE | 2021-08-13 06:17 | NUR ---
Problems reprioritized. Patient report given, questions answered & plan of care reviewed with Aletha AGUILA.
--- NOTE | 2021-08-13 06:23 | NUR ---
Patient in room CICU 2009. I have received report from Rafael AGUILA and had the opportunity to ask questions and assume patient care.
[2021-08-13] MEDS: FENTANYL-0.9 % NACL/PF 100 ML IV PRN ×2 (06:42→16:20)
[2021-08-13] MEDS ORDERED: levoTHYROXINE 25mcg tablet PO SCH (08:00)
[2021-08-13] MEDS: levoTHYROXINE sod inj. 100mcg/5 ml vial IV SCH (08:57)
[2021-08-13] MEDS: furosemide 40mg/4ml inj IV SCH (08:57)
[2021-08-13] MEDS: piperacillin/tazo 3.375gm/50ml 50 ML IV SCH ×2 (08:58→16:20)
[2021-08-13] MEDS: pantoprazole 40 MG vial IV SCH (08:58)
[2021-08-13] MEDS: aspirin 81mg tab.chew PO SCH (08:58)
[2021-08-13] MEDS: MVI, adult No.4 with vit. K 10 ML in dextrose 5% water 500ml 500 ML IV SCH ×2 (08:59)
[2021-08-13] MEDS: normal saline 1000ml 1,000 ML IV SCH ×2 (09:25→16:55)
[2021-08-13] MEDS: vancomycin/NS 1 GM ADD-VANTAGE 250 ML IV SCH ×2 (09:40→20:02)
[2021-08-13] MEDS: apixaban 5mg tablet PO SCH ×2 (09:40→20:01)
[2021-08-13] MEDS ORDERED: amiodarone 150mg/dext, iso-os 100 ML IV ONE (10:40)
[2021-08-13] MEDS: amiodarone/D5 360MG/200ML BAG 200 ML IV SCH ×3 (11:24→17:21)
--- NOTE | 2021-08-13 18:11 | NUR ---
Problems reprioritized. Patient report given, questions answered & plan of care reviewed with Rafael AGUILA.
--- NOTE | 2021-08-13 18:30 | NUR ---
Patient in room CICU 2009. I have received report from Aletha AGUILA and had the opportunity to ask questions and assume patient care.
[2021-08-13] MEDS: fat emulsion 20% inj. 100 ML IV SCH (20:02)
[2021-08-13] MEDS: ZINC/COPPER/MANGANESE/SELENIUM 1 ML, chromic chloride inj. 10 MCG in AA 5 %/CALCIUM/LYT... IV SCH (21:37)
[2021-08-14] VITALS (24 sets, daily range): BP systolic 94–130; BP diastolic 64–89
[2021-08-14] MEDS: piperacillin/tazo 3.375gm/50ml 50 ML IV SCH ×3 (00:01→15:38)
[2021-08-14] MEDS: NORepinephrine inj. 32 MG in normal saline 250ml IV soln 218 ML IV SCH ×3 (00:37→18:34)
[2021-08-14] MEDS: FENTANYL-0.9 % NACL/PF 100 ML IV PRN (01:48)
[2021-08-14] MEDS: mineral oil/petrolatum ophthal oint EACHEYE SCH ×2 (02:32→08:42)
[2021-08-14 02:44] LABS: ABG BASE EXCESS -6.2 mmol/L (-2.0-2.0); ABG HCO3 19.5 mmol/L (22.0-26.0); ABG OXYGEN SATURATION 95.8 % (94-97); ABG PCO2 (T) 41.4 mmHg (35.0-48.0); ABG PO2 (T) 92.4 mmHg (75.0-100.0); ALLEN'S TEST POSITIVE; FCOHb 0.1 % (0.0-3.9); FMetHb 0.6 % (0.0-1.5); FO2Hb 95.1 % (94-97); PATIENT TEMPERATURE 38.2; PEEP 5 cm H2O; RESPIRATORY RATE 14 b/min; TIDAL VOLUME 600 mL; TOTAL HEMOGLOBIN 12.2 G/dl (14.0-18.0)
[2021-08-14 03:06] LABS: BASOPHILS % (AUTO) 0.4 % (0-1); EOSINOPHILS # (AUTO) 0.1 X10'3 (0-0.9); EOSINOPHILS % (AUTO) 1.7 % (0-6); HEMATOCRIT 34.6 % (42.0-52.0); LYMPHOCYTES # (AUTO) 0.8 X10'3 (1.1-4.8); LYMPHOCYTES % (AUTO) 11.7 % (21-51); MEAN CORPUSCULAR HEMOGLOBIN 28.5 PG (27.0-31.0); MEAN CORPUSCULAR HGB CONC 31.9 g/dL (33.0-36.5); MEAN CORPUSCULAR VOLUME 89.3 FL (78-98); MEAN PLATELET VOLUME 7.1 FL (7.4-10.4); MONOCYTES # (AUTO) 1.4 X10'3 (0-0.9); MONOCYTES % (AUTO) 20.6 % (2-12); NEUTROPHILS # (AUTO) 4.6 X10'3 (1.8-7.7); NEUTROPHILS % (AUTO) 65.6 % (42-75); PLATELET COUNT 358 X10'3 (140-440); RED BLOOD COUNT 3.88 X10'6 (4.70-6.10); RED CELL DISTRIBUTION WIDTH 18.5 % (11.5-14.5)
[2021-08-14 03:10] LABS: PARTIAL THROMBOPLASTIN TIME 35 SECONDS (22-32)
[2021-08-14] MEDS: normal saline 1000ml 1,000 ML IV SCH ×2 (04:17→15:31)
[2021-08-14 04:22] LABS: ALANINE AMINOTRANSFERASE 14 U/L (12-78); ALBUMIN 1.4 G/DL (3.4-5.0); ALBUMIN/GLOBULIN RATIO 0.3 (1.1-1.5); ALKALINE PHOSPHATASE 138 IU/L (46-116); ANION GAP 8 (8-16); ASPARTATE AMINO TRANSFERASE 16 U/L (10-37); BILIRUBIN,TOTAL 0.7 MG/DL (0.1-1.0); BLOOD UREA NITROGEN 21 MG/DL (7-18); CALCIUM 7.1 MG/DL (8.5-10.1); CHLORIDE 109 MMOL/L (99-107); CREATININE 1.31 MG/DL (0.60-1.10); GLUCOSE 142 MG/DL (70-104); MAGNESIUM 1.7 MG/DL (1.5-2.4); PHOSPHORUS 2.4 MG/DL (2.3-4.5); POTASSIUM 3.5 MMOL/L (3.5-5.1); SODIUM 142 MMOL/L (135-145); TOTAL CARBON DIOXIDE 25.2 MMOL/L (24-32); TOTAL PROTEIN 5.9 G/DL (6.4-8.2); eGFR 56 ML/MIN
[2021-08-14 05:22] LABS: ANISOCYTOSIS 2+; BURR CELLS 2+; PLATELET ESTIMATE NORMAL; POLYCHROMASIA 1+; TOTAL CELLS COUNTED 100
[2021-08-14 05:24] LABS: SMUDGE CELLS 2+
[2021-08-14] MEDS: amiodarone/D5 360MG/200ML BAG 200 ML IV SCH ×4 (05:58→18:33)
--- NOTE | 2021-08-14 06:19 | NUR ---
Problems reprioritized. Patient report given, questions answered & plan of care reviewed with Tulio AGUILA.
[2021-08-14] MEDS: vancomycin/NS 1 GM ADD-VANTAGE 250 ML IV SCH ×2 (08:43→23:16)
[2021-08-14] MEDS: furosemide 40mg/4ml inj IV SCH (08:44)
[2021-08-14] MEDS: pantoprazole 40 MG vial IV SCH (09:09)
[2021-08-14] MEDS: aspirin 81mg tab.chew PO SCH (09:10)
[2021-08-14] MEDS: apixaban 5mg tablet PO SCH ×2 (09:10→19:35)
[2021-08-14] MEDS: levoTHYROXINE sod inj. 100mcg/5 ml vial IV SCH (09:10)
--- NOTE | 2021-08-14 09:52 | NUR ---
Reassessment: Pt remains intubated and tolerating TPN at goal rate for nutrition. Still no BM since admit. Pt with persistent ileus per MD note. Noted wound care has been consulted for open wound with cellulitis to leg, pending assessment at this time. Pt already with increased protein needs which is being fulfilled with TPN. Will continue to follow closely. Recommendations: 1) Continuous 2:1 Clinimix-E 03/11 with goal rate of 95 mL/hr with 100 mL 20% intralipids to run for 12 hours/day at 8.33 mL/hr. In total to provide 2380 mL total volume/day, 2206 kcal, 114 g protein, 456 g dextrose (3.98 mg/kg/min dext loading), and 20 g lipids 3) Prealbumin and TG q Monday/; daily scaled wts 4) PO diet advancement to low fiber/low residue as medically indicated following extubation 5) Bowel care per MD post-op Addendum: 08/14/21 at [address] Amended: Links added.
[2021-08-14] MEDS: acetaminophen 325mg tablet PO PRN (13:38)
--- NOTE | 2021-08-14 15:08 | NUR ---
extubated at 1230. On 5L NC stats 95%. Patient appears very uncomfortable, yet denies pain when asked. Pulled NGT at 1430, Dr. Grijalva notified, replaced NGT without difficulty.
[2021-08-14] MEDS: ZINC/COPPER/MANGANESE/SELENIUM 1 ML, chromic chloride inj. 10 MCG in AA 5 %/CALCIUM/LYT... IV SCH (17:37)
[2021-08-14] MEDS ORDERED: HYDROcodone/acetaminophen 10/325mg tab PO PRN (18:30)
--- NOTE | 2021-08-14 18:30 | NUR ---
Patient in room CICU 2009. I have received report from Tulio AGUILA and had the opportunity to ask questions and assume patient care.
[2021-08-14] MEDS: dexmedetomidine/D5W 100mL 100 ML IV SCH ×2 (19:32→23:19)
[2021-08-14] MEDS: lactobacillus rhamnosus 10,000 MMU CELLS/CAPSULE PO SCH (19:35)
[2021-08-14] MEDS: morphine 4 MG/ML inj SYRINge IV PRN (19:35)
[2021-08-14] MEDS ORDERED: VANCOMYCIN LEVEL IV ONE (20:30)
[2021-08-14] MEDS: fat emulsion 20% inj. 100 ML IV SCH (20:38)
[2021-08-15] VITALS (23 sets, daily range): BP systolic 94–127; BP diastolic 54–91
[2021-08-15] MEDS: HYDROmorphone inj. 0.5 MG/0.5 ML DISP.SYRIN IV PRN ×3 (00:43→13:10)
[2021-08-15] MEDS: piperacillin/tazo 3.375gm/50ml 50 ML IV SCH ×3 (01:17→16:56)
[2021-08-15] MEDS: NORepinephrine inj. 32 MG in normal saline 250ml IV soln 218 ML IV SCH ×3 (02:19→22:30)
[2021-08-15 03:07] LABS: LYMPHOCYTES # (AUTO) 0.9 X10'3 (1.1-4.8); RED BLOOD COUNT 3.84 X10'6 (4.70-6.10); WHITE BLOOD COUNT 9.6 X10'3 (4.5-11.0)
[2021-08-15 03:08] LABS: BASOPHILS % (AUTO) 0.1 % (0-1); EOSINOPHILS % (AUTO) 0.2 % (0-6); HEMATOCRIT 34.7 % (42.0-52.0); HEMOGLOBIN 10.6 g/dl (14.0-17.9); LYMPHOCYTES % (AUTO) 9.8 % (21-51); MEAN CORPUSCULAR HEMOGLOBIN 27.7 PG (27.0-31.0); MEAN CORPUSCULAR HGB CONC 30.7 g/dL (33.0-36.5); MEAN CORPUSCULAR VOLUME 90.3 FL (78-98); MEAN PLATELET VOLUME 7.6 FL (7.4-10.4); MONOCYTES # (AUTO) 1.5 X10'3 (0-0.9); MONOCYTES % (AUTO) 15.8 % (2-12); NEUTROPHILS # (AUTO) 7.1 X10'3 (1.8-7.7); NEUTROPHILS % (AUTO) 74.1 % (42-75); PLATELET COUNT 332 X10'3 (140-440); RED CELL DISTRIBUTION WIDTH 18.4 % (11.5-14.5)
[2021-08-15 03:14] LABS: PARTIAL THROMBOPLASTIN TIME 39 SECONDS (22-32)
[2021-08-15 03:18] LABS: ALANINE AMINOTRANSFERASE 11 U/L (12-78); ALBUMIN 1.5 G/DL (3.4-5.0); ALBUMIN/GLOBULIN RATIO 0.3 (1.1-1.5); ALKALINE PHOSPHATASE 298 IU/L (46-116); ANION GAP 11 (8-16); ASPARTATE AMINO TRANSFERASE 29 U/L (10-37); BILIRUBIN,TOTAL 0.7 MG/DL (0.1-1.0); BLOOD UREA NITROGEN 27 MG/DL (7-18); BUN/CREATININE RATIO 18.5 (5.4-32.0); CALCIUM 7.1 MG/DL (8.5-10.1); CHLORIDE 110 MMOL/L (99-107); CREATININE 1.46 MG/DL (0.60-1.10); GLUCOSE 145 MG/DL (70-104); MAGNESIUM 1.6 MG/DL (1.5-2.4); PHOSPHORUS 3.7 MG/DL (2.3-4.5); POTASSIUM 3.9 MMOL/L (3.5-5.1); SODIUM 144 MMOL/L (135-145); TOTAL CARBON DIOXIDE 23.4 MMOL/L (24-32); TOTAL PROTEIN 6.2 G/DL (6.4-8.2); TRIGLYCERIDES 63 MG/DL (20-135); eGFR 50 ML/MIN
[2021-08-15] MEDS: normal saline 1000ml 1,000 ML IV SCH ×2 (03:41→17:01)
[2021-08-15 04:07] LABS: ANISOCYTOSIS 2+; PLATELET ESTIMATE NORMAL; POLYCHROMASIA 1+; SMUDGE CELLS 1+; TOTAL CELLS COUNTED 100
[2021-08-15 04:08] LABS: BURR CELLS 1+
--- NOTE | 2021-08-15 06:29 | NUR ---
Problems reprioritized. Patient report given, questions answered & plan of care reviewed with Pranav AGUILA.
--- NOTE | 2021-08-15 06:41 | NUR ---
Patient in room CICU 2009. I have received report from AYLA Hall and had the opportunity to ask questions and assume patient care.
[2021-08-15] MEDS: furosemide 40mg/4ml inj IV SCH (08:22)
[2021-08-15] MEDS: apixaban 5mg tablet PO SCH ×2 (08:22→23:03)
[2021-08-15] MEDS: levoTHYROXINE sod inj. 100mcg/5 ml vial IV SCH (08:23)
[2021-08-15] MEDS: aspirin 81mg tab.chew PO SCH (08:23)
[2021-08-15] MEDS: lactobacillus rhamnosus 10,000 MMU CELLS/CAPSULE PO SCH ×2 (08:23→20:00)
[2021-08-15] MEDS: vancomycin/NS 1 GM ADD-VANTAGE 250 ML IV SCH ×2 (08:24→21:00)
[2021-08-15] MEDS: pantoprazole 40 MG vial IV SCH (10:37)
[2021-08-15] MEDS: amiodarone/D5 360MG/200ML BAG 200 ML IV SCH ×3 (10:40→23:04)
[2021-08-15] MEDS: acetaminophen 325mg tablet PO PRN (11:00)
[2021-08-15] MEDS: morphine 4 MG/ML inj SYRINge IV PRN ×2 (11:01→17:33)
[2021-08-15] MEDS: dexmedetomidine/D5W 100mL 100 ML IV SCH (14:05)
[2021-08-15 14:37] LABS: ABG BASE EXCESS -9.2 mmol/L (-2.0-2.0); ABG HCO3 21.2 mmol/L (22.0-26.0); ABG OXYGEN SATURATION 89.5 % (94-97); ABG PCO2 (T) 72.1 mmHg (35.0-48.0); ABG PO2 (T) 76.4 mmHg (75.0-100.0); ALLEN'S TEST POSITIVE; FCOHb 0.1 % (0.0-3.9); FMetHb 0.3 % (0.0-1.5); FO2Hb 89.1 % (94-97); PATIENT TEMPERATURE 37.8; RESPIRATORY RATE 12 b/min; TOTAL HEMOGLOBIN 12.3 G/dl (14.0-18.0)
[2021-08-15] MEDS: ZINC/COPPER/MANGANESE/SELENIUM 1 ML, chromic chloride inj. 10 MCG in AA 5 %/CALCIUM/LYT... IV SCH (14:37)
[2021-08-15] MEDS ORDERED: furosemide 40mg/4ml inj IV ONE (17:30)
[2021-08-15 18:05] LABS: ABG BASE EXCESS -9.5 mmol/L (-2.0-2.0); ABG HCO3 20.8 mmol/L (22.0-26.0); ABG OXYGEN SATURATION 87.2 % (94-97); ABG PCO2 (T) 70.8 mmHg (35.0-48.0); ABG PO2 (T) 69.3 mmHg (75.0-100.0); FCOHb 0.4 % (0.0-3.9); FMetHb 0.1 % (0.0-1.5); FO2Hb 86.8 % (94-97); PATIENT TEMPERATURE 37.6; RESPIRATORY RATE 28 b/min
--- NOTE | 2021-08-15 18:27 | NUR ---
Problems reprioritized. Patient report given, questions answered & plan of care reviewed with AYLA Franklin.
[2021-08-15] MEDS: propofol 1000mg/100ml bottle 100 ML IV SCH (18:53)
[2021-08-15] MEDS: dexmedetomidin/NS 400mcg/100ml 100 ML IV PRN (18:54)
[2021-08-15 19:09] LABS: ABG BASE EXCESS -11.7 mmol/L (-2.0-2.0); ABG HCO3 17.7 mmol/L (22.0-26.0); ABG OXYGEN SATURATION 88.9 % (94-97); ABG PCO2 (T) 56.7 mmHg (35.0-48.0); ALLEN'S TEST POSITIVE; FCOHb 0.1 % (0.0-3.9); FMetHb 0.1 % (0.0-1.5); FO2Hb 88.7 % (94-97); PATIENT TEMPERATURE 37.4; PEEP 5 cm H2O; RESPIRATORY RATE 20 b/min; TIDAL VOLUME 20 mL
[2021-08-15] MEDS: fat emulsion 20% inj. 100 ML IV SCH (20:00)
[2021-08-15] MEDS ORDERED: NORepinephrine 8mg/ 250ml NS 250 ML IV ONE (20:45)
[2021-08-16] VITALS (24 sets, daily range): BP systolic 39–113; BP diastolic 12–89
[2021-08-16] MEDS: propofol 1000mg/100ml bottle 100 ML IV SCH ×3 (02:05→22:27)
[2021-08-16] MEDS: dexmedetomidin/NS 400mcg/100ml 100 ML IV PRN (02:06)
[2021-08-16 02:20] LABS: ABG BASE EXCESS -6.3 mmol/L (-2.0-2.0); ABG HCO3 20.1 mmol/L (22.0-26.0); ABG OXYGEN SATURATION 90.6 % (94-97); ABG PCO2 (T) 45.4 mmHg (35.0-48.0); ABG PO2 (T) 66.4 mmHg (75.0-100.0); ALLEN'S TEST POSITIVE; FCOHb 0.3 % (0.0-3.9); FMetHb 0.2 % (0.0-1.5); FO2Hb 90.1 % (94-97); PATIENT TEMPERATURE 38.1; PEEP 5 cm H2O; RESPIRATORY RATE 16 b/min; TIDAL VOLUME 500 mL; TOTAL HEMOGLOBIN 12.3 G/dl (14.0-18.0)
[2021-08-16 03:03] LABS: HEMOGLOBIN 11.3 g/dl (14.0-17.9); MEAN CORPUSCULAR HEMOGLOBIN 28.1 PG (27.0-31.0); PLATELET COUNT 318 X10'3 (140-440); RED BLOOD COUNT 4.03 X10'6 (4.70-6.10); WHITE BLOOD COUNT 15.1 X10'3 (4.5-11.0)
[2021-08-16 03:05] LABS: HEMATOCRIT 36.4 % (42.0-52.0); MEAN CORPUSCULAR HGB CONC 31.1 g/dL (33.0-36.5); MEAN CORPUSCULAR VOLUME 90.2 FL (78-98); RED CELL DISTRIBUTION WIDTH 18.6 % (11.5-14.5)
[2021-08-16 03:47] LABS: ALANINE AMINOTRANSFERASE 98 U/L (12-78); ALBUMIN 1.5 G/DL (3.4-5.0); ALBUMIN/GLOBULIN RATIO 0.3 (1.1-1.5); ALKALINE PHOSPHATASE 106 IU/L (46-116); ANION GAP 10 (8-16); ASPARTATE AMINO TRANSFERASE 396 U/L (10-37); BLOOD UREA NITROGEN 40 MG/DL (7-18); BUN/CREATININE RATIO 20.1 (5.4-32.0); CALCIUM 7.4 MG/DL (8.5-10.1); CHLORIDE 110 MMOL/L (99-107); CREATININE 1.99 MG/DL (0.60-1.10); MAGNESIUM 1.9 MG/DL (1.5-2.4); PHOSPHORUS 4.2 MG/DL (2.3-4.5); PREALBUMIN 3.4 MG/DL (19-36); SODIUM 143 MMOL/L (135-145); TOTAL CARBON DIOXIDE 22.7 MMOL/L (24-32); TOTAL PROTEIN 6.5 G/DL (6.4-8.2); eGFR 35 ML/MIN
[2021-08-16 03:51] LABS: GLUCOSE 82 MG/DL (70-104); POTASSIUM 4.3 MMOL/L (3.5-5.1)
[2021-08-16 03:52] LABS: C-REACTIVE PROTEIN 26.32 MG/DL (0.0-0.5)
[2021-08-16] MEDS: amiodarone/D5 360MG/200ML BAG 200 ML IV SCH ×3 (04:40→22:25)
[2021-08-16 04:45] LABS: ABG BASE EXCESS -9.2 mmol/L (-2.0-2.0); ABG HCO3 17.9 mmol/L (22.0-26.0); ABG OXYGEN SATURATION 88.4 % (94-97); ABG PCO2 (T) 45.3 mmHg (35.0-48.0); ABG PO2 (T) 67.3 mmHg (75.0-100.0); ALLEN'S TEST POSITIVE; FCOHb 0.1 % (0.0-3.9); FMetHb 0.2 % (0.0-1.5); FO2Hb 88.1 % (94-97); PEEP 5 cm H2O; RESPIRATORY RATE 26 b/min; TIDAL VOLUME 500 mL; TOTAL HEMOGLOBIN 12.1 G/dl (14.0-18.0)
[2021-08-16] MEDS: piperacillin/tazo 3.375gm/50ml 50 ML IV SCH ×3 (04:55→16:00)
[2021-08-16] MEDS: NORepinephrine inj. 32 MG in normal saline 250ml IV soln 218 ML IV SCH ×3 (04:55→19:27)
[2021-08-16] MEDS ORDERED: midazolam 1 mg/ML 2ml injection IV PRN (05:15)
[2021-08-16] MEDS: vasopressin inj. 40 UNIT in normal saline 50ml IV soln 38 ML IV SCH ×2 (05:43→22:27)
[2021-08-16] MEDS: HYDROmorphone inj. 0.5 MG/0.5 ML DISP.SYRIN IV PRN (05:44)
[2021-08-16 05:49] LABS: D-DIMER > 35.20 MG/L FEU (0-0.50); PARTIAL THROMBOPLASTIN TIME 37 SECONDS (22-32)
[2021-08-16] MEDS: normal saline 1000ml 1,000 ML IV SCH ×2 (06:21→19:41)
--- NOTE | 2021-08-16 06:30 | NUR ---
Patient in room CICU 2009. I have received report from AYLA Franklin and had the opportunity to ask questions and assume patient care.
[2021-08-16] MEDS: aspirin 81mg tab.chew PO SCH (08:20)
[2021-08-16] MEDS: pantoprazole 40 MG vial IV SCH (08:20)
[2021-08-16] MEDS: furosemide 40mg/4ml inj IV SCH (08:20)
[2021-08-16] MEDS: apixaban 5mg tablet PO SCH ×2 (08:20→20:00)
[2021-08-16] MEDS: lactobacillus rhamnosus 10,000 MMU CELLS/CAPSULE PO SCH ×2 (08:20→20:00)
[2021-08-16] MEDS: levoTHYROXINE sod inj. 100mcg/5 ml vial IV SCH (08:23)
[2021-08-16 08:33] LABS: TOTAL CELLS COUNTED 100
[2021-08-16 08:34] LABS: ANISOCYTOSIS 2+; PLATELET ESTIMATE NORMAL
[2021-08-16 08:35] LABS: LARGE PLATELETS FEW; POLYCHROMASIA FEW; SMUDGE CELLS 1+; TEAR DROP CELLS FEW
[2021-08-16] MEDS: vancomycin/NS 1 GM ADD-VANTAGE 250 ML IV SCH (09:00)
[2021-08-16] MEDS ORDERED: FENTANYL-0.9 % NACL/PF 100 ML IV PRN (09:20)
--- NOTE | 2021-08-16 09:20 | NUR ---
Pt SpO2 58% on AC/ PRVC mode, FIO2 100%, PEEP 8. Informed Dr Thibodeaux received order to increase PEEP to 15, obtain CXR and ABG, and check intra abdominal pressure. Fentanyl drip ordered as well. Call placed to pt's THU Medeiros, message left on voicemail to call CICU.
--- NOTE | 2021-08-16 09:40 | NUR ---
Call placed to Dr Addison. Voicemail left for Dr Addison updating him on pt's condition.
[2021-08-16 10:24] LABS: ABG BASE EXCESS -9.6 mmol/L (-2.0-2.0); ABG HCO3 18.4 mmol/L (22.0-26.0); ABG OXYGEN SATURATION 85.3 % (94-97); ABG PCO2 (T) 51.7 mmHg (35.0-48.0); ABG PO2 (T) 65.3 mmHg (75.0-100.0); FCOHb 0.1 % (0.0-3.9); FMetHb 0.1 % (0.0-1.5); FO2Hb 85.1 % (94-97); PATIENT TEMPERATURE 38.4; PEEP 15 cm H2O; RESPIRATORY RATE 26 b/min; TIDAL VOLUME 500 mL; TOTAL HEMOGLOBIN 12.1 G/dl (14.0-18.0)
--- NOTE | 2021-08-16 10:35 | NUR ---
Attempted to call Dr Addison again. SpO2 67%, AC/ PRVC mode, FIO2 100%, PEEP 15. Dr Thibodeaux has reviewed pt CXR and ABG results. No new orders at this time. IAP 17 mm Hg
[2021-08-16] MEDS: DOPamine 400mg/D5W 250ml 250 ML IV SCH ×3 (11:10→23:11)
--- NOTE | 2021-08-16 11:40 | NUR ---
F/u 08/17: Noted pt receiving propofol at 9.477 ml/hr providing 250 kcals from lipids/day; will hold additional lipids w/ PN at this time. Updated recs below. Recommendations: 1) Continuous 2:1 Clinimix-E 03/11 with goal rate of 95 mL/hr to provide 2280mL total volume/day, 2006 kcal, 114 g protein, 456 g dextrose (3.98 mg/kg/min dext loading). 2) IF propofol weaned; resume 100ml 20% intralipids Q12H each day at 8.33ml/hr 3) Prealbumin and TG q Monday/; daily scaled wts 4) Bowel care per MD post-op 5) PO diet advancement to low fiber/low residue as medically indicated following extubation Addendum: 08/16/21 at [address] Amended: Links added.
[2021-08-16] MEDS ORDERED: vancomycin/NS 1 GM ADD-VANTAGE 250 ML IV PRN (12:05)
[2021-08-16] MEDS: ZINC/COPPER/MANGANESE/SELENIUM 1 ML, chromic chloride inj. 10 MCG in AA 5 %/CALCIUM/LYT... IV SCH (14:11)
--- NOTE | 2021-08-16 15:22 | NUR ---
Per Primary RN, patient is unstable and wound care is unable to evaluate at this time.
[2021-08-16] MEDS: MVI, adult No.4 with vit. K 10 ML in dextrose 5% water 500ml 500 ML IV SCH ×2 (16:00)
--- NOTE | 2021-08-16 17:30 | NUR ---
Dr Addison rounded on pt.
--- NOTE | 2021-08-16 18:31 | NUR ---
Problems reprioritized. Patient report given, questions answered & plan of care reviewed with AYLA Monson.
--- NOTE | 2021-08-16 18:36 | NUR ---
notified of pt current vital signs 40/14, oxygen saturation of 62%; pressors currently at max rate per policy. Will continue to monitor.
[2021-08-17] VITALS (11 sets, daily range): BP systolic 34–91; BP diastolic 11–63
[2021-08-17] MEDS: piperacillin/tazo 3.375gm/50ml 50 ML IV SCH ×2 (00:57→08:28)
[2021-08-17] MEDS: NORepinephrine inj. 32 MG in normal saline 250ml IV soln 218 ML IV SCH (00:59)
[2021-08-17 02:51] LABS: ABG BASE EXCESS -17.8 mmol/L (-2.0-2.0); ABG OXYGEN SATURATION 93.1 % (94-97); ABG PCO2 (T) 43.9 mmHg (35.0-48.0); ABG PO2 (T) 83.5 mmHg (75.0-100.0); ALLEN'S TEST POSITIVE; FCOHb 0.2 % (0.0-3.9); FMetHb 0.1 % (0.0-1.5); FO2Hb 92.8 % (94-97); PATIENT TEMPERATURE 37.4; PEEP 15 cm H2O; RESPIRATORY RATE 26 b/min; TIDAL VOLUME 500 mL
[2021-08-17] MEDS ORDERED: VANCOMYCIN LEVEL IV SCH (03:00)
[2021-08-17 03:49] LABS: PLATELET COUNT 276 X10'3 (140-440); WHITE BLOOD COUNT 19.6 X10'3 (4.5-11.0)
[2021-08-17 04:08] LABS: ALANINE AMINOTRANSFERASE 374 U/L (12-78); ALBUMIN 1.2 G/DL (3.4-5.0); ALBUMIN/GLOBULIN RATIO 0.3 (1.1-1.5); ALKALINE PHOSPHATASE 210 IU/L (46-116); ANION GAP 17 (8-16); BILIRUBIN,TOTAL 1.5 MG/DL (0.1-1.0); BLOOD UREA NITROGEN 45 MG/DL (7-18); BUN/CREATININE RATIO 15.5 (5.4-32.0); CALCIUM 7.6 MG/DL (8.5-10.1); CHLORIDE 107 MMOL/L (99-107); CREATININE 2.91 MG/DL (0.60-1.10); MAGNESIUM 1.9 MG/DL (1.5-2.4); PHOSPHORUS 7.4 MG/DL (2.3-4.5); POTASSIUM 5.1 MMOL/L (3.5-5.1); SODIUM 139 MMOL/L (135-145); TOTAL CARBON DIOXIDE 15.4 MMOL/L (24-32); TOTAL PROTEIN 5.9 G/DL (6.4-8.2); VANCOMYCIN,RANDOM 28.6 UG/ML; eGFR 22 ML/MIN
[2021-08-17 04:11] LABS: GLUCOSE 12 MG/DL (70-104)
[2021-08-17 04:12] LABS: ASPARTATE AMINO TRANSFERASE 1665 U/L (10-37); C-REACTIVE PROTEIN 26.59 MG/DL (0.0-0.5)
[2021-08-17 04:19] LABS: PARTIAL THROMBOPLASTIN TIME 50 SECONDS (22-32)
[2021-08-17] MEDS: dextrose 50%-water 50ml dispensing syringe IV PRN (04:19)
[2021-08-17 04:24] LABS: D-DIMER > 35.20 MG/L FEU (0-0.50)
[2021-08-17 04:58] LABS: RED BLOOD COUNT 4.18 X10'6 (4.70-6.10)
[2021-08-17 04:59] LABS: MEAN CORPUSCULAR HEMOGLOBIN 28.6 PG (27.0-31.0); MEAN CORPUSCULAR HGB CONC 32.3 g/dL (33.0-36.5); MEAN CORPUSCULAR VOLUME 88.5 FL (78-98)
[2021-08-17 05:00] LABS: RED CELL DISTRIBUTION WIDTH 17.5 % (11.5-14.5)
[2021-08-17 05:27] LABS: NUCLEATED RED BLOOD CELLS 2 /100WBC (0-0); TOTAL CELLS COUNTED 100
[2021-08-17 05:28] LABS: ANISOCYTOSIS 2+; PLATELET ESTIMATE NORMAL
[2021-08-17 05:29] LABS: BURR CELLS 1+; GIANT PLATELET FEW; LARGE PLATELETS FEW; POLYCHROMASIA FEW
[2021-08-17] MEDS: furosemide 40mg/4ml inj IV SCH (08:28)
[2021-08-17] MEDS: aspirin 81mg tab.chew PO SCH (08:28)
[2021-08-17] MEDS: lactobacillus rhamnosus 10,000 MMU CELLS/CAPSULE PO SCH (08:28)
[2021-08-17] MEDS: pantoprazole 40 MG vial IV SCH (08:28)
[2021-08-17] MEDS: apixaban 5mg tablet PO SCH (08:29)
[2021-08-17] MEDS ORDERED: sodium bicarbonate (8.4%) inj. 100 MEQ in dextrose 5%-water 1,000 ML IV SCH (08:35)
--- NOTE | 2021-08-17 10:09 | NUR ---
Dr Murillo called pt's father Parish [place] to discuss dialysis treatment. Pt's father decided that it would be best for pt to go to comfort care. Dr Thibodeaux ordered comfort care. Call placed to pt's SO Mala who lives locally. She said she is unable to come to hospital.
[2021-08-17] MEDS ORDERED: morphine 10mg/ml inj. IV PRN (11:35)
[2021-08-17] MEDS ORDERED: LORazepam 2 mg/ml vial IV PRN (11:35)
--- NOTE | 2021-08-17 11:51 | NUR ---
Reassessment: Noted pt has been made DNR with comfort care. Extubation orders in place. TPN likely to discontinue at this point. Will continue to follow per LOS. Recommendations: 1) Bowel care per comfort care measures Addendum: 08/17/21 at [address] Amended: Links added.
--- NOTE | 2021-08-17 12:20 | NUR ---
Pt extubated to comfort care.
--- NOTE | 2021-08-17 12:34 | NUR ---
RN IS TO DOCUMENT YES TO ALL APPLICABLE AREAS Pronouncement of : 1. Time Physician Notified: 1234 2. Date of :08/17/2021 3. Time of : 1234 4. DNR/Withdraw life support documented:Y 5. Monitor strip has been placed on chart:Y 6. Assessment process is of one-minute duration and includes following criteria:Y a) Patient is unresponsive to all stimuli: Y b) Pupils fixed and non-reactive:Y c) Auscultation of precordium reveals absence of heart tones:Y d) Auscultation of lungs reveals absence of breath sounds:Y e) Absence of blood pressure / all vital signs:Y f) QRS complexes are not present on monitor / EKG strip:Y g) Pacer spikes without capture:N/A 4. Comments:
== END 2021-08-17 12:30 | DRG 710 ==
LOC: ER 21:10 → UNDOADMIN 08-11 00:38 → ED HOLD 08-11 00:38 → CICU 2S 08-11 00:38
PROVIDERS: ADMIT Internal Medicine; ATTEND Internal Medicine
PROC: 5A1945Z Respiratory Ventilation, 24-96 Consecutive Hours (ICD-10-PCS; 2021-08-11)
PROC: 0WQF0ZZ Repair Abdominal Wall, Open Approach (ICD-10-PCS; 2021-08-11)
PROC: 0DB80ZZ Excision of Small Intestine, Open Approach (ICD-10-PCS; principal; 2021-08-11 00:45)
PROC: 5A09357 Assistance with Respiratory Ventilation, Less than 24 Consecutive Hours, Continuous Positive Airway Pressure (ICD-10-PCS; 2021-08-14)
PROC: 5A09357 Assistance with Respiratory Ventilation, Less than 24 Consecutive Hours, Continuous Positive Airway Pressure (ICD-10-PCS; 2021-08-15)
PROC: 0BH17EZ Insertion of Endotracheal Airway into Trachea, Via Natural or Artificial Opening (ICD-10-PCS; 2021-08-15)
PROC: 5A1945Z Respiratory Ventilation, 24-96 Consecutive Hours (ICD-10-PCS; 2021-08-15)
PROC: 3E0336Z Introduction of Nutritional Substance into Peripheral Vein, Percutaneous Approach (ICD-10-PCS; 2021-08-17)
DX: A41.9 Sepsis, unspecified organism (principal); N17.0 Acute kidney failure with tubular necrosis; J12.82 Pneumonia due to coronavirus disease 2019; K55.9 Vascular disorder of intestine, unspecified; U07.1 COVID-19; J80 Acute respiratory distress syndrome; K65.9 Peritonitis, unspecified; E87.2 Acidosis; J44.0 Chronic obstructive pulmonary disease with (acute) lower respiratory infection; Z51.5 Encounter for palliative care; K42.0 Umbilical hernia with obstruction, without gangrene; I11.0 Hypertensive heart disease with heart failure; I50.22 Chronic systolic (congestive) heart failure; I48.91 Unspecified atrial fibrillation; R18.8 Other ascites; I42.7 Cardiomyopathy due to drug and external agent; I49.8 Other specified cardiac arrhythmias; F15.90 Other stimulant use, unspecified, uncomplicated; E03.9 Hypothyroidism, unspecified; K92.0 Hematemesis; K40.90 Unilateral inguinal hernia, without obstruction or gangrene, not specified as recurrent; Z86.718 Personal history of other venous thrombosis and embolism; Z91.030 Bee allergy status; Z90.49 Acquired absence of other specified parts of digestive tract
CPT/HCPCS: 36415; 36600; 71045; 74176; 80053; 80202; 82803; 82948; 83036; 83605; 83690; 83735; 84100; 84132; 84134; 84145; 84443; 84478; 85007; 85018; 85025; 85379; 85610; 85730; 86140; 86885; 86900; 86901; 86920; 87040; 87070; 87075; 87077; 87081; 87186; 87635; 93005; 94002; 94003; 94640; 94660; 94760; 96374; 96375; 99285; A4618; A6253; A6258; A6407; A6449; A7000; C1758; C9113; C9132; C9803; G0378; J0131; J0171; J1170; J1265; J1940; J2001; J2250; J2270; J2370; J2543; J2704; J3010; J3370; J3475; J3480; J3490; J7030; J7040; J7060; J7120; J7121; P9045